=== PATIENT | female | born 1955 | race Two or more races ===

== ENCOUNTER 2020-04-11 10:21 | Outpatient (REF) | payer MEDICARE, MEDICAID, SELFPAY ==
[2020-04-11 11:19] LABS: MANUAL DIFF FLAG NO
[2020-04-11 11:28] LABS: Basophils Percent Auto 0.5 % (0-2); Eosinophils Absolute Auto 0.2 X10*3/uL (0.0-0.4); Eosinophils Percent Auto 2.6 % (0-4); Hemoglobin 13.4 g/dl (12.0-16.0); Imm Gran Abs Auto 0.01 X10*3/uL (0.00-0.03); Imm Gran Pct Auto 0.2 % (0.0-0.4); Lymphocytes Absolute Auto 1.6 X10*3/uL (1.2-4.9); Lymphocytes Percent Auto 25.9 % (20-40); Mean Corpuscular HGB Conc 31.9 g/dl (31.0-35.0); Mean Corpuscular Hemoglobin 28.2 pg (27.0-33.0); Mean Corpuscular Volume 88.4 fL (80-98); Mean Platelet Volume 12.5 fL (9.4-12.3); Monocytes Absolute Auto 0.6 X10*3/uL (0.1-1.2); Monocytes Percent Auto 9.1 % (2-11); Neutrophils Absolute Auto 3.7 X10*3/uL (2.0-8.3); Neutrophils Percent Auto 61.7 % (45-73); Platelet Count 228 X10*3/uL (160-400); Red Blood Count 4.75 X10*6/uL (4.20-5.50); Red Cell Distribution Width 13.6 % (11.0-16.0); White Blood Count 6.1 X10*3/uL (4.8-10.8)
[2020-04-11 12:23] LABS: Alanine Aminotransferase 13 U/L (0-31); Albumin Level 4.3 g/dL (3.5-5.0); Alkaline Phosphatase 78 U/L (39-117); Anion Gap 12 (12-20); Aspartate Amino Transferase 18 U/L (5-31); Bilirubin Total 0.4 mg/dL (0.0-1.0); Blood Urea Nitrogen 14 mg/dL (9-16); Calcium 9.3 mg/dL (8.4-10.2); Carbon Dioxide 27 mmol/L (22-29); Chloride 107 mmol/L (96-108); Cholesterol 169 mg/dL; Estimated Glomerular Filt Rate > 60; Glucose Fasting 90 mg/dL (60-99); HDL Cholesterol 55 mg/dL; LDL Cholesterol Calculated 97 mg/dl; Potassium 5.1 mmol/l (3.3-5.1); Sodium 141 mmol/L (135-145); Total Protein 7.2 g/dL (6.5-8.0); Triglycerides 87 mg/dL
== END 2020-04-11 10:22 | disposition home or self-care (01) ==
LOC: HO.LAB 10:21
PROVIDERS: PCP Physician Assistant; Visit Provider Physician Assistant
DX: E87.5 Hyperkalemia (principal); I10 Essential (primary) hypertension
CPT/HCPCS: 36415; 80053; 80061; 85025

== ENCOUNTER 2020-11-27 10:06 | Outpatient (REF) | payer MEDICARE, MEDICAID, SELFPAY ==
[2020-11-27 11:17] LABS: Alanine Aminotransferase 12 U/L (0-31); Albumin Level 4.6 g/dL (3.5-5.0); Alkaline Phosphatase 77 U/L (39-117); Anion Gap 14 (12-20); Aspartate Amino Transferase 20 U/L (5-31); Bilirubin Total 0.3 mg/dL (0.0-1.0); Blood Urea Nitrogen 19 mg/dL (9-16); Calcium 10.4 mg/dL (8.4-10.2); Carbon Dioxide 28 mmol/L (22-29); Chloride 104 mmol/L (96-108); Estimated Glomerular Filt Rate > 60; Glucose Fasting 106 mg/dL (60-99); Potassium 4.6 mmol/L (3.3-5.1); Sodium 141 mmol/L (135-145); Total Protein 7.8 g/dL (6.5-8.0)
[2020-11-27 11:37] LABS: TSH reflex Free T4 0.46 uIU/mL (0.32-4.0)
== END 2020-11-27 10:07 | disposition home or self-care (01) ==
LOC: HO.LAB 10:06
PROVIDERS: PCP Physician Assistant; Visit Provider Nurse Practitioner Family
DX: I10 Essential (primary) hypertension (principal)
CPT/HCPCS: 36415; 80053; 84443

== ENCOUNTER 2020-12-28 09:23 | Outpatient (REF) | payer MEDICARE, MEDICAID, SELFPAY ==
--- NOTE | ~2020-12-28 | MM_ITS ---
EXAMINATION: BONE DENSITOMETRY CLINICAL INDICATION: Asymptomatic menopausal state. COMPARISON: This is the patient's baseline examination. TECHNIQUE: Using a Array Storm DXA System (software version: 13.1) manufactured by [employer], dual-energy x-ray absorptiometry was performed of the spine and left hip. The images are of good technical quality. Summary results are attached. FINDINGS: AP SPINE L1-L3 (excluding L4): The data of L1-L4 has been changed to exclude the L4 vertebral body, because degenerative changes at this level may cause overestimation of lumbar spine density. BMD 1.019 g/cm2, Z-score 0.0, T-score -1.3, osteopenia. LEFT FEMUR, NECK: BMD 0.704 g/cm2, Z-score -1.2, T-score -2.4, osteopenia. LEFT FEMUR, TOTAL: BMD 0.735 g/cm2, Z-score -1.2, T-score -2.2, osteopenia. IDENTIFIED RISK FACTORS: Rheumatoid arthritis, recurrent falls, low calcium intake, history of fracture (adult), menopause, thiazide. HISTORY OF FRACTURE: Elbow. MEDICATIONS: Calcium supplements or multivitamin, vitamin D. MM/XR DEXA axial skeleton IMPRESSION: 1. DIAGNOSIS: Osteopenia based on the lowest T-score value of -2.4 in the femoral neck applying World Health Organization criteria. 2. 10-YEAR FRACTURE RISK PREDICTION, FRAX: Major osteoporotic fracture (clinical spine, forearm, hip or shoulder) 14.9%. Hip fracture 3.2%. 3. Treatment Recommendations: NOF guidelines recommend consideration for treatment in postmenopausal women and men age 50 and older presenting with the following: -A hip or vertebral (clinical or morphometric) fracture. -T-score less than or equal to -2.5 at the femoral neck or spine after appropriate evaluation to exclude secondary causes. -Low bone mass at the hip or spine and a 10-year fracture probability by FRAX of greater than or equal to 3% for hip fracture or greater than or equal to 20% for major osteoporotic fracture based on the [place] adapted WHO algorithm. 4. Other Recommendations: All treatment decisions require clinical judgment and consideration of individual patient factors, including patient preferences, comorbidities, previous drug use, risk factors not captured in the FRAX model (e.g. frailty, falls, vitamin D deficiency, increased bone turnover, interval significant decline in bone density) and possible under or overestimation of fracture risk by FRAX. Additional medical evaluation for secondary cause of low bone mineral density may be appropriate. FUTURE SCAN RECOMMENDATION: People with diagnosed cases of osteoporosis or at high risk for fracture should have regular bone mineral density tests. For patients eligible for Medicare, routine testing is allowed once every 2 years. The testing frequency can be increased to one year for patients who have rapidly progressing disease, those who are receiving or discontinuing medical therapy to restore bone mass, or have additional risk factors.
== END 2020-12-28 09:24 | disposition home or self-care (01) ==
LOC: HO.MAMMO 09:23
PROVIDERS: PCP Nurse Practitioner Family; Visit Provider Nurse Practitioner Family
DX: Z13.820 Encounter for screening for osteoporosis (principal); M85.80 Other specified disorders of bone density and structure, unspecified site; Z78.0 Asymptomatic menopausal state; Z79.899 Other long term (current) drug therapy
CPT/HCPCS: 77080

== ENCOUNTER 2020-12-28 13:00 | Outpatient (RCR) | payer MEDICARE, MEDICAID, SELFPAY | END 2021-01-16 13:00 | disposition home or self-care (01) | LOC: HO.OT 13:00 | PROVIDERS: PCP Orthopaedic Surgery; Visit Provider Orthopaedic Surgery | DX: Z98.890 Other specified postprocedural states (principal) | CPT/HCPCS: 29105; 97035; 97110; 97140; 97166; 97530; 97760 ==

== ENCOUNTER 2021-04-02 15:18 | Outpatient (REF) | payer MEDICARE, MEDICAID, SELFPAY ==
--- NOTE | ~2021-04-02 | MM_ITS ---
EXAMINATION: MM SCREENING DIGITAL BREAST TOMOSYNTHESIS, BILATERAL CLINICAL INFORMATION: Screening. Asymptomatic. The lifetime risk of breast cancer based on the Tyrer-Cuzick Model is 4.6%. COMPARISON: Mammography: January 30, 2020 and studies dating back to October 26, 2015 TECHNIQUE: Digital breast tomosynthesis is performed in both the craniocaudal and mediolateral oblique views along with computer-aided detection (CAD). Synthesized 2D images are generated from the tomosynthesis. FINDINGS: There are scattered areas of fibroglandular density (ACR BI-RADS breast composition Category b). There are no significant masses, abnormal calcifications, or other abnormalities. MM/MM tomosynthesis screening BI IMPRESSION: There are no significant changes from prior study. ASSESSMENT: BI-RADS 1: Negative RECOMMENDATION: Routine annual mammography screening. This patient's information was entered into a reminder system with a target due date for their next mammogram.
== END 2021-04-02 15:19 | disposition home or self-care (01) ==
LOC: HO.MAMMO 15:18
PROVIDERS: Visit Provider Physician Assistant
DX: Z12.31 Encounter for screening mammogram for malignant neoplasm of breast (principal)
CPT/HCPCS: 77063; 77067

== ENCOUNTER 2021-04-08 11:18 | Outpatient (REF) | payer MEDICARE, MEDICAID, SELFPAY ==
[2021-04-08 12:25] LABS: Hematocrit 43.7 % (37.0-47.0); Hemoglobin 13.9 g/dl (12.0-16.0); Mean Corpuscular HGB Conc 31.8 g/dl (31.0-35.0); Mean Corpuscular Hemoglobin 27.8 pg (27.0-33.0); Mean Corpuscular Volume 87.4 fL (80.0-98.0); Mean Platelet Volume 12.5 fL (9.4-12.3); Platelet Count 220 X10*3/uL (160-400); Red Cell Distribution Width 14.6 % (11.0-16.0); White Blood Count 8.8 X10*3/uL (4.8-10.8)
[2021-04-08 12:40] LABS: Estimated Average Glucose 111 mg/dL; Hemoglobin A1c % 5.5 %
[2021-04-08 12:48] LABS: Creatinine Urine 205.61 mg/dL; Microalbum/Creatinine Ratio Ur 7.7 ug/mg cr
[2021-04-08 12:55] LABS: Alanine Aminotransferase 11 U/L (0-31); Albumin Level 4.4 g/dL (3.5-5.0); Alkaline Phosphatase 74 U/L (39-117); Anion Gap 14 (12-20); Aspartate Amino Transferase 17 U/L (5-31); Bilirubin Total 0.5 mg/dL (0.0-1.0); Blood Urea Nitrogen 14 mg/dL (9-16); C Reactive Protein 0.44 mg/dL (< or = 0.50); Calcium 10.2 mg/dL (8.4-10.2); Carbon Dioxide 28 mmol/L (22-29); Chloride 105 mmol/L (96-108); Cholesterol 187 mg/dL; Estimated Glomerular Filt Rate > 60; Glucose Fasting 106 mg/dL (60-99); HDL Cholesterol 59 mg/dL; LDL Cholesterol Calculated 107 mg/dl; Potassium 4.7 mmol/L (3.3-5.1); Sodium 142 mmol/L (135-145); Total Protein 7.7 g/dL (6.5-8.0); Triglycerides 107 mg/dL
[2021-04-08 13:10] LABS: TSH reflex Free T4 0.56 uIU/mL (0.32-4.0)
[2021-04-08 13:13] LABS: Rheumatoid Factor < 15.0 IU/mL (<15.0)
[2021-04-09 23:02] LABS: Anti Nuclear Antibody Screen POSITIVE (NEGATIVE); Anti Nuclear Antibody Titer 1:40 titer
[2021-04-10 21:06] LABS: Cyclic Citrullinated Peptide <16 UNITS
== END 2021-04-08 11:19 | disposition home or self-care (01) ==
LOC: HO.LAB 11:18
PROVIDERS: PCP Physician Assistant; Visit Provider Physician Assistant
DX: I10 Essential (primary) hypertension (principal); M25.50 Pain in unspecified joint
CPT/HCPCS: 36415; 80053; 80061; 82043; 83036; 84443; 85027; 86038; 86039; 86140; 86200; 86431

== ENCOUNTER 2021-08-20 10:33 | Outpatient (REF) | payer OTHER, SELFPAY ==
--- NOTE | ~2021-08-20 | XR_ITS ---
EXAMINATION: BILATERAL HAND X-RAY CLINICAL INFORMATION: Pain COMPARISON: None TECHNIQUE: 3 views of each hand FINDINGS: Left: Bone alignment is normal. No fracture or dislocation is seen. There is mild arthritis at the DIP joint of the second finger and PIP joint of the third finger. Joint spaces are otherwise normal. The small cysts in the lunate. Carpal bones are otherwise normal. Soft tissues are normal. Right: Bone alignment is normal. No fracture or dislocation is seen. There is mild arthritis at the first IP and HALF-WAY joints and IP joint of the second finger. Carpal bones are normal. Soft tissues are normal. XR/XR hand RT 2V IMPRESSION: Mild bilateral arthritis.
--- NOTE | ~2021-08-20 | XR_ITS ---
EXAMINATION: BILATERAL HAND X-RAY CLINICAL INFORMATION: Pain COMPARISON: None TECHNIQUE: 3 views of each hand FINDINGS: Left: Bone alignment is normal. No fracture or dislocation is seen. There is mild arthritis at the DIP joint of the second finger and PIP joint of the third finger. Joint spaces are otherwise normal. The small cysts in the lunate. Carpal bones are otherwise normal. Soft tissues are normal. Right: Bone alignment is normal. No fracture or dislocation is seen. There is mild arthritis at the first IP and CORRECTION joints and IP joint of the second finger. Carpal bones are normal. Soft tissues are normal. XR/XR hand LT 2V IMPRESSION: Mild bilateral arthritis.
[2021-08-20 12:03] LABS: Hemoglobin 13.5 g/dl (12.0-16.0); Mean Corpuscular HGB Conc 31.4 g/dl (31.0-35.0); Mean Corpuscular Hemoglobin 27.7 pg (27.0-33.0); Mean Corpuscular Volume 88.1 fL (80.0-98.0); Mean Platelet Volume 11.9 fL (9.4-12.3); Platelet Count 292 X10*3/uL (160-400); Red Blood Count 4.88 X10*6/uL (4.20-5.50); White Blood Count 8.3 X10*3/uL (4.8-10.8)
[2021-08-20 12:40] LABS: Alanine Aminotransferase 17 U/L (0-31); Albumin Level 4.4 g/dL (3.5-5.0); Alkaline Phosphatase 79 U/L (39-117); Anion Gap 16 (12-20); Aspartate Amino Transferase 19 U/L (5-31); Bilirubin Total 0.6 mg/dL (0.0-1.0); Blood Urea Nitrogen 16 mg/dL (9-16); Carbon Dioxide 26 mmol/L (22-29); Chloride 102 mmol/L (96-108); Cholesterol 173 mg/dL; Estimated Glomerular Filt Rate > 60; Glucose Fasting 102 mg/dL (60-99); HDL Cholesterol 52 mg/dL; LDL Cholesterol Calculated 102 mg/dl; Potassium 3.9 mmol/L (3.3-5.1); Sodium 140 mmol/L (135-145); Total Protein 7.7 g/dL (6.5-8.0); Triglycerides 98 mg/dL
[2021-08-20 12:40] LABS: Microalbum/Creatinine Ratio Ur 8.9 ug/mg cr
[2021-08-20 12:59] LABS: TSH reflex Free T4 0.98 uIU/mL (0.32-4.0)
[2021-08-20 13:27] LABS: Rheumatoid Factor < 15.0 IU/mL (<15.0)
== END 2021-08-20 10:34 | disposition home or self-care (01) ==
LOC: HO.LAB 10:33
PROVIDERS: PCP Physician Assistant; Visit Provider Physician Assistant
DX: M79.641 Pain in right hand (principal); M79.642 Pain in left hand; I10 Essential (primary) hypertension; M25.50 Pain in unspecified joint; R76.8 Other specified abnormal immunological findings in serum
CPT/HCPCS: 36415; 73120; 80053; 80061; 82043; 84443; 85027; 86431

== ENCOUNTER 2021-10-22 09:09 | Outpatient (REF) | payer OTHER, SELFPAY ==
--- NOTE | ~2021-10-22 | XR_ITS ---
EXAMINATION: XR hand RT min 3V, XR hand LT min 3V CLINICAL INFORMATION: Pain COMPARISON: Hand radiographs 08/20/2021 TECHNIQUE: 3 views of the bilateral hands FINDINGS: RIGHT HAND: No fracture or dislocation. There is loss of first metacarpophalangeal joint space and loss of second metacarpophalangeal joint space, as well as volar subluxation of the second proximal phalanx with respect to the metatarsal head not previously appreciated. Marginal cortical erosion along the medial aspect of the head of the second middle phalanx, with radial subluxation of the second distal phalanx with respect to the middle phalanx. Soft tissues are unremarkable. LEFT HAND: No fracture or dislocation. Mild degenerative changes of the second and first distal interphalangeal joints. No cortical erosion. Soft tissues are unremarkable. XR/XR hand LT min 3V IMPRESSION: * In the right hand there is loss of first metacarpophalangeal joint space and loss of second metacarpophalangeal joint space with volar subluxation of the second proximal phalanx with respect to the metatarsal head which can be seen in the setting of rheumatoid arthritis. There is also a marginal cortical erosion along the medial aspect of the head of the right second middle phalanx, with radial subluxation of the second distal phalanx with respect to the middle phalanx, which would be in a distribution atypical for rheumatoid arthritis and other erosive arthropathies could be also considered such as psoriatic arthritis or erosive osteoarthritis. * Mild degenerative changes of the left second and first distal interphalangeal joints similar to prior
--- NOTE | ~2021-10-22 | XR_ITS ---
EXAMINATION: XR hand RT min 3V, XR hand LT min 3V CLINICAL INFORMATION: Pain COMPARISON: Hand radiographs 08/20/2021 TECHNIQUE: 3 views of the bilateral hands FINDINGS: RIGHT HAND: No fracture or dislocation. There is loss of first metacarpophalangeal joint space and loss of second metacarpophalangeal joint space, as well as volar subluxation of the second proximal phalanx with respect to the metatarsal head not previously appreciated. Marginal cortical erosion along the medial aspect of the head of the second middle phalanx, with radial subluxation of the second distal phalanx with respect to the middle phalanx. Soft tissues are unremarkable. LEFT HAND: No fracture or dislocation. Mild degenerative changes of the second and first distal interphalangeal joints. No cortical erosion. Soft tissues are unremarkable. XR/XR hand RT min 3V IMPRESSION: * In the right hand there is loss of first metacarpophalangeal joint space and loss of second metacarpophalangeal joint space with volar subluxation of the second proximal phalanx with respect to the metatarsal head which can be seen in the setting of rheumatoid arthritis. There is also a marginal cortical erosion along the medial aspect of the head of the right second middle phalanx, with radial subluxation of the second distal phalanx with respect to the middle phalanx, which would be in a distribution atypical for rheumatoid arthritis and other erosive arthropathies could be also considered such as psoriatic arthritis or erosive osteoarthritis. * Mild degenerative changes of the left second and first distal interphalangeal joints similar to prior
[2021-10-22 11:24] LABS: C Reactive Protein 0.62 mg/dL (< or = 0.50)
[2021-10-22 11:41] LABS: Erythrocyte Sedimentation Rate 14 MM/HR (0-20)
[2021-10-22 12:27] LABS: Creatinine Urine 182.91 mg/dL; Protein/Creatinine Ratio, Ur 0.07 (<0.2); Total Protein Urine Random 12 mg/dL (<12)
[2021-10-23 21:01] LABS: Anti DNA DS Antibody <1 IU/mL; SM/Ribonucleoprotein Ab <1.0 NEG AI (<1.0 NEG); Smith Protein <1.0 NEG AI (<1.0 NEG)
== END 2021-10-22 09:10 | disposition home or self-care (01) ==
LOC: HO.LAB 09:09
PROVIDERS: PCP Physician Assistant; Visit Provider Internal Medicine Rheumatology
DX: M79.641 Pain in right hand (principal); M79.642 Pain in left hand; R76.8 Other specified abnormal immunological findings in serum; M25.50 Pain in unspecified joint
CPT/HCPCS: 36415; 73130; 84156; 85652; 86140; 86225; 86235; 99202

== ENCOUNTER 2022-04-04 11:55 | Outpatient (REF) | payer OTHER, SELFPAY ==
--- NOTE | ~2022-04-04 | MM_ITS ---
EXAMINATION: MM SCREENING DIGITAL BREAST TOMOSYNTHESIS, BILATERAL CLINICAL INFORMATION: Screening. Asymptomatic. COMPARISON: Mammography: 04/02/2021, 01/30/2020, 01/24/2019 TECHNIQUE: Digital breast tomosynthesis is performed in both the craniocaudal and mediolateral oblique views along with computer-aided detection (CAD). Synthesized 2D images are generated from the tomosynthesis. Additional left CC view is provided. FINDINGS: There are scattered areas of fibroglandular density (ACR BI-RADS breast composition Category b). Parenchymal pattern is similar to prior studies. Scattered minor asymmetries are stable. There is no developing density or interval architectural abnormality. No interval abnormal calcifications. The axilla and skin contours are unremarkable. No significant changes. MM/MM tomosynthesis screening BI IMPRESSION: No mammographic evidence of malignancy. ASSESSMENT: BI-RADS 2: Benign RECOMMENDATION: Routine annual mammography screening. This patient's information was entered into a reminder system with a target due date for their next mammogram.
== END 2022-04-04 11:56 | disposition home or self-care (01) ==
LOC: HO.MAMMO 11:55
PROVIDERS: PCP Physician Assistant; Visit Provider Physician Assistant
DX: Z12.31 Encounter for screening mammogram for malignant neoplasm of breast (principal)
CPT/HCPCS: 77063; 77067

== ENCOUNTER 2022-09-04 09:53 | Outpatient (REF) | payer OTHER, SELFPAY ==
--- NOTE | ~2022-09-04 | XR_ITS ---
EXAMINATION: XR LUMBOSACRAL SPINE CLINICAL INFORMATION: M54.50 - Low back pain, unspecified COMPARISON: CT abdomen and pelvis 09/04/2018 TECHNIQUE: Three views of the lumbosacral spine. FINDINGS: There is transitional vertebrae at S1 with partial lumbarization. The SI joints and remainder of the sacrum are unremarkable. There is a mild levocurvature lumbar spine with normal lumbar lordosis. The vertebral bodies are normal in height and there is no vertebral compression or destructive process. There are degenerative disc changes greatest at L5-S1 with disc narrowing and mild endplate sclerosis and vertebral spurring. There are also degenerative disc changes at L3-L4 and L4-L5. Multilevel facet degeneration is present, greatest L4-S1. There is a grade 0-1 spondylolisthesis at both L3-L4 and lesser at L4-L5.. XR/XR lumbar spine 2-3V IMPRESSION: -Transitional vertebrae S1 with partial lumbarization. -Multilevel degenerative disc and degenerative facet changes. -Grade 0-1 spondylolisthesis L3-L4 and lesser at L4-L5.
[2022-09-04 11:05] LABS: Hematocrit 41.5 % (37.0-47.0); Hemoglobin 13.3 g/dl (12.0-16.0); Mean Corpuscular Hemoglobin 28.3 pg (27.0-33.0); Mean Corpuscular Volume 88.3 fL (80.0-98.0); Mean Platelet Volume 12.3 fL (9.4-12.3); Platelet Count 238 X10*3/uL (160-400); Red Cell Distribution Width 13.7 % (11.0-16.0); White Blood Count 7.1 X10*3/uL (4.8-10.8)
[2022-09-04 11:39] LABS: Creatinine Urine 101.19 mg/dL; Microalbum/Creatinine Ratio Ur 7.9 ug/mg cr
[2022-09-04 11:39] LABS: Alanine Aminotransferase 10 U/L (0-31); Albumin Level 4.1 g/dL (3.5-5.0); Alkaline Phosphatase 75 U/L (39-117); Anion Gap 12 (12-20); Aspartate Amino Transferase 16 U/L (5-31); Bilirubin Total 0.9 mg/dL (0.0-1.0); Blood Urea Nitrogen 15 mg/dL (9-16); Calcium 9.8 mg/dL (8.4-10.2); Carbon Dioxide 29 mmol/L (22-29); Chloride 108 mmol/L (96-108); Cholesterol 159 mg/dL; Estimated Glomerular Filt Rate > 60; Glucose Fasting 101 mg/dL (60-99); HDL Cholesterol 52 mg/dL; LDL Cholesterol Calculated 81 mg/dl; Potassium 4.9 mmol/L (3.3-5.1); Sodium 144 mmol/L (135-145); Total Protein 6.9 g/dL (6.5-8.0); Triglycerides 133 mg/dL
[2022-09-04 11:59] LABS: TSH reflex Free T4 0.61 uIU/mL (0.32-4.0)
== END 2022-09-04 09:54 | disposition home or self-care (01) ==
LOC: HO.LAB 09:53
PROVIDERS: PCP Physician Assistant; Visit Provider Physician Assistant
DX: I10 Essential (primary) hypertension (principal); M54.50 Low back pain, unspecified
CPT/HCPCS: 36415; 72100; 80053; 80061; 82043; 84443; 85027

== ENCOUNTER 2022-10-30 11:00 | Outpatient (RCR) | payer OTHER, SELFPAY ==
--- NOTE | 2022-10-16 13:57 | MHC.PT.EP ---
[facility] [place] Office [place] Office [place] Office [address] Jose Duenas [address] [phone] F: [phone] F: [phone] F: [phone] F: [phone] Physical Therapy Plan of Care Date of Evaluation: Date of Surgery: N/A Diagnosis: thoracolumbar and lumbosacral intervertebral disc disease (RC) grade 0-1 spondylolisthesis of L3-4 and L4-5 per xray Assessment: pt is a 67 y/o female presenting to physical therapy w/ referring diagnosis of thoracolumbar and lumbosacral intervertebral disc disorder. Impairments include pain, decreased range of motion, decreased strength, impaired functional mobility, impaired postural awareness, and altered ambulation mechanics. pt is a good candidate for skilled PT due to age, potential remediation of impairments, typical disease/condition progression and prognosis, comorbidities, and motivation. pt would benefit from skilled PT intervention to provide a tailored strengthening and stretching exercise program, functional training, gait training, postural re-training, neuromuscular re-education, modalities as needed for pain, equipment safety demonstration. Frequency and Duration: The patient will be seen 1x/wk for 5 wks Short Term Goals: pt will be I w/ HEP to promote self-management of condition. pt will demo sit<>stand posture w/ neutral foot and hip alignment to promote ease in transfers Alf Goals: pt will report a statistically significant improvement in self-reported outcome measure, Blaise, to promote return to PLOF. pt will demo proper lifting mechanics w/ 15# to promote neutral spine w/ lifting. Treatment Plan: Modalities to reduce pain, spasms and effusion. Manual therapy to restore motion and function. Therapeutic exercise to improve strength and flexibility. Neuromuscular re-education for posture and balance. Therapeutic activities to return to functional activities of daily living. Electronically signed by: Bessie Fu PT, DPT Please sign and return to therapist. Thank you for your referral.
--- NOTE | 2022-12-04 10:40 | MHC.PT.DC ---
[facility] [place] Office [place] Office [place] Office [address] Duenas 140 [facility] [phone] F: [phone] F: [phone] F: [phone] F: [phone] Physical Therapy Discharge Report Diagnosis: thoracolumbar and lumbosacral intervertebral disc disease (RC) grade 0-1 spondylolisthesis of L3-4 and L4-5 per xray Date of Surgery: N/A Date of Evaluation: 10/16/22 Date of Discharge: 12/04/22 Treatments to Date: 3 Cancellations to Date: 2 No Shows to Date: 0 Discharge Status: Achieved Goals Improved Function Discharge Summary: The patient was reporting she would like to be discharged as she had met her goals and was feeling better. Electronically signed by: Bessie Hahn PT, DPT Please sign and return to therapist. Thank you for your referral.
== END 2022-12-04 10:40 | disposition home or self-care (01) ==
LOC: HO.PT 11:00
PROVIDERS: PCP Physician Assistant; Visit Provider Physician Assistant
DX: M51.9 Unspecified thoracic, thoracolumbar and lumbosacral intervertebral disc disorder (principal); M54.50 Low back pain, unspecified
CPT/HCPCS: 97110; 97162

== ENCOUNTER 2023-02-16 13:45 | Outpatient (AMB) | payer OTHER, SELFPAY ==
[2023-02-16 14:07] VITALS: BP 124/86; PULSE 65; RESP 17; O2SAT 98; BMI 28.3
--- NOTE | 2023-02-16 14:07 | MHC.PC.OV ---
Vital Signs 02/16/23 14:07 Height 5 ft 2.5 in Weight 157 lb 2 oz BMI 28.3 BP 124/86 Blood Pressure Location Lt brachial Position Sitting Respiration 17 Pulse 65 Pulse Source Pulse Oximeter Pulse Oximetry (%) 98 Oxygen Delivery Method Room Air Intake Visit Reasons: 6M Follow up Intake Note: Pt is here for 6 months routine F/U. Pt requesting MARKETING AND OUTREACH COORDINATOR referral. Shingle Catcher Required: No Accompanied by: Self / Same As Patient Allergies No Known Allergies Allergy (Verified 02/16/23 14:27) Medication List - Last Reconciled 02/16/23 by Fer Rai PA-C amlodipine 5 mg PO DAILY ascorbate calcium (vitamin C) 500 mg PO DAILY calcium carbonate 600 mg PO DAILY cane As directed cholecalciferol (vitamin D3) 25 mcg PO DAILY hydrochlorothiazide 12.5 mg PO DAILY 90 days meloxicam 15 mg PO DAILY PRN 30 days sumatriptan succinate take 1 tab at onset of headache; if no relief may repeat 1 tab after at least 2 hrs; max = 4 tabs/24 hr PO Tobacco use date assessed: 09/01/22 Fall risk assessment: No Falls in past year Last assessed Fall Risk: 02/16/23 Dental Screening Dental Screen Date: 02/16/23 Did you have a dental visit in the last 12 months?: Yes Did you have a dental problem in the last 6 months where you did not have access to dental care?: No Was dental information given to patient?: Patient has dentist HPI 6M Follow up HPI Details Sarah is a 67 year-old female here today for a f/u visit. . Patient has a past medical history significant for anxiety, migraines, nephrolithiasis, hypertension. Concerns--> would like to see a MARKETING AND OUTREACH COORDINATOR , reports recently her sister recently diagnsoed with ovarian cancer. She reports she has not seen binder operator or 5 years. She is also concerned her renal cysts that were incidentally found during episode of nephrolithiasis. She would like her renal cysts checked again. Otherwise denies any urinary symptoms or flank pain. ? .. ? HTN: REport at home her BP is normal 120s to 130 systolic, today in office acceptable. Patient denies any chest pain, shortness of breath, sustain headaches. .. Osteopenia: Most recent Bone density showing oseopenia--> has been using calcium and vitamin-D supplements.?? ? PFSH Medical History Conjunctivitis Fracture, radius and ulna, proximal History of fracture of humerus History of fracture of wrist Post-menopausal Screening for diabetes mellitus Surgical History History of colonoscopy History of surgery on arm History of foot surgery H/O bilateral breast reduction surgery Family History Father Diabetes Mother Diabetes Hyperlipidemia Sister Gynecologic cancer Sister Breast cancer Son Multiple sclerosis Daughter Obesity Social History Housing: House Alcohol intake: never Patient Tobacco Use Status: Never used Tobacco e-Cigarette/Vaping Use: Never Used Second Hand Smoke Exposure: No service: No Current occupational status: disabled Cognitive needs: Yes (cane) Hearing needs: No Vision needs: Yes (glasses) Questionnaire Thrive Questionnaire Date Thrive assessed: 09/01/22 MARII-7 AMB Questionnaire MARII-7 Date MARII - 7 assessed: 09/01/22 Source: Developed by Drs. vEerette Wills, Linda Foster, Jair Donovan and colleagues, with an educational sony from [employer]. Review of Systems Const Denies headache(s) Eyes Denies loss of vision ENT Denies vertigo, Denies dizziness, Denies headache(s) and Denies sore throat Card Denies chest pain, Denies leg edema and Denies lightheadedness Resp Denies cough, Denies hemoptysis and Denies wheezing GI Denies abdominal pain, Denies melena, Denies constipation, Denies diarrhea and Denies vomiting Denies urinary frequency, Denies dysuria and Denies urinary urgency Musc Denies arthralgias, Denies joint swelling, Denies numbness and Denies tingling Neuro Denies Abnormal speech present, Denies behavioral changes, Denies vertigo, Denies dizziness, Denies headache(s), Denies loss of vision, Denies memory loss, Denies numbness and Denies tingling Psych Denies anxiety, Denies behavioral changes, Denies depression, Denies memory loss and Denies panic attacks Dom/Lymph Denies easy bleeding and Denies easy bruising Aller/Immun Denies wheezing Physical exam (Primary Care) Vital Signs: Last Vital Signs Pulse 65 02/16/23 14:07 Resp 17 02/16/23 14:07 BP 124/86 02/16/23 14:07 Pulse Ox 98 02/16/23 14:07 Oxygen Delivery Method Room Air 02/16/23 14:07 BMI result Body Mass Index 28.3 Tobacco/Smoking Status: Tobacco use Status Tobacco use date assessed 09/01/22 02/16/23 14:09 Patient Tobacco Use Status Never used Tobacco 02/16/23 14:09 e-Cigarette/Vaping Use Never Used 02/16/23 14:09 Thrive Assessment: Date of Thrive Assessment Date Thrive assessed 09/01/22 02/16/23 14:09 Const General: healthy appearing, no acute distress, alert and awake Nutritional Appearance: well nourished Orientation/consciousness: oriented to person, oriented to place and oriented to time HENMT Ears: TM's normal bilaterally General nose exam: Normal nasal mucous membranes and turbinates present Eyes Conjunctivae: conjunctivae normal Sclerae: sclerae normal Pupils: Equal, round and reactive pupils present Neck Neck: Yes no lymphadenopathy and Yes no JVD Thyroid: Thyroid normal Carotids: no bruits Resp Effort & Inspection: normal respiratory effort and not tachypneic Auscultation: no crackles, no rales, no rhonchi and no wheezes Cardio Rate: regular rate Rhythm: regular rhythm Heart sounds: no murmurs and normal S1 and S2 GI Palpation (GI): Soft to palpation, nontender, no hepatomegaly and no splenomegaly Auscultation: normal bowel sounds Skin General skin exam: no rashes or lesions noted and dry skin Neuro General: oriented to person, oriented to place and oriented to time Cranial nerves: Yes Equal, round and reactive pupils present Speech: No Abnormal speech present Gait exam (Neuro): Normal gait present Motor exam (neuro): no tremor noted Extrem Right upper extremity: full ROM Left upper extremity: full ROM Right lower extremity: full ROM; no edema Left lower extremity: full ROM; no edema Psych Mental Status: mental status grossly normal Speech and movement: Normal speech and movement present Affect: normal affect Attitude: cooperative Thought process: Normal thought process present Assessment and Plan Assessment & Plan (1) HTN (hypertension): Code(s): I10 - Essential (primary) hypertension Qualifiers: Hypertension type: essential hypertension Qualified Code(s): I10 - Essential (primary) hypertension Plan: Patient's blood pressure acceptable today in office. Will continue current dose of antihypertensive medication with goal blood pressure to be below 140/90 (2) Family history of ovarian cancer: Code(s): Z80.41 - Family history of malignant neoplasm of ovary Plan: Patient reports her sister recently diagnosed with ovarian cancer. She is wanting to see a binder operator again to get checked otherwise asymptomatic without any abdominal pain, pelvic pain or vaginal bleeding. Will check a CA -125 (3) Renal cyst: Code(s): N28.1 - Cyst of kidney, acquired Plan: Patient has a history of nephrolithiasis and during her treatment for nephrolithiasis was found to have bilateral kidney cysts. He she is interested in getting her kidney cysts checked to make sure they having grown. Otherwise denies any flank pain or urinary symptoms. Orders: Orders Microalbumin, Random (w Creat) 02/16/23 I10 - Essential (primary) hypertension CA-125 02/16/23 Z80.41 - Family history of malignant neoplasm of ovary Complete Blood Count no Diff 02/16/23 I10 - Essential (primary) hypertension Comprehensive Sacul. Panel Fast 02/16/23 I10 - Essential (primary) hypertension US renal BI 02/16/23 N28.1 - Cyst of kidney, acquired Referrals AUTOMATIC QUILLING MACHINE OPERATOR Referral Z80.41 - Family history of malignant neoplasm of ovary Medications: Refilled hydrochlorothiazide 12.5 mg PO DAILY 90 days 90 tabs 1RF I10 - Essential (primary) hypertension amlodipine 5 mg PO DAILY 90 tabs 1RF I10 - Essential (primary) hypertension Coding Level of Care Code Est Pt Level 4 (56984) Diagnoses Essential hypertension I10 Hypertension type: essential hypertension Family history of ovarian cancer Z80.41 Renal cyst N28.1
== END 2023-02-16 14:41 | disposition home or self-care (01) ==
PROVIDERS: PCP Physician Assistant; Visit Provider Physician Assistant
DX: I10 Essential (primary) hypertension (principal); Z80.41 Family history of malignant neoplasm of ovary; N28.1 Cyst of kidney, acquired
CPT/HCPCS: 99214

== ENCOUNTER 2023-02-26 09:18 | Outpatient (REF) | payer OTHER, SELFPAY ==
[2023-02-26 10:06] LABS: Hematocrit 41.7 % (37.0-47.0); Hemoglobin 13.1 g/dl (12.0-16.0); Mean Corpuscular HGB Conc 31.4 g/dl (31.0-35.0); Mean Corpuscular Hemoglobin 28.4 pg (27.0-33.0); Mean Corpuscular Volume 90.5 fL (80.0-98.0); Mean Platelet Volume 11.9 fL (9.4-12.3); Platelet Count 240 X10*3/uL (160-400); Red Blood Count 4.61 X10*6/uL (4.20-5.50); Red Cell Distribution Width 13.9 % (11.0-16.0); White Blood Count 7.6 X10*3/uL (4.8-10.8)
[2023-02-26 11:14] LABS: Creatinine Urine 92.65 mg/dL; Microalbumin Urine < 5.0 mg/L
[2023-02-26 11:17] LABS: Alanine Aminotransferase 9 U/L (0-31); Albumin Level 4.2 g/dL (3.5-5.0); Alkaline Phosphatase 69 U/L (39-117); Anion Gap 14 (12-20); Aspartate Amino Transferase 16 U/L (5-31); Bilirubin Total 0.8 mg/dL (0.0-1.0); Blood Urea Nitrogen 12 mg/dL (9-16); Calcium 9.8 mg/dL (8.4-10.2); Carbon Dioxide 26 mmol/L (22-29); Chloride 107 mmol/L (96-108); Estimated Glomerular Filt Rate > 60; Glucose Fasting 93 mg/dL (60-99); Potassium 4.4 mmol/L (3.3-5.1); Sodium 143 mmol/L (135-145); Total Protein 7.4 g/dL (6.5-8.0)
[2023-02-28 08:39] LABS: CA-125 6 U/mL (<35)
== END 2023-02-26 09:19 | disposition home or self-care (01) ==
LOC: HO.LAB 09:18
PROVIDERS: PCP Physician Assistant; Visit Provider Physician Assistant
DX: I10 Essential (primary) hypertension (principal); R10.2 Pelvic and perineal pain; Z80.41 Family history of malignant neoplasm of ovary
CPT/HCPCS: 36415; 80053; 82043; 82570; 85027; 86304

== ENCOUNTER 2023-03-10 11:47 | Outpatient (REF) | payer OTHER, SELFPAY ==
--- NOTE | ~2023-03-10 | US_ITS ---
EXAMINATION: US RETROPERITONEAL LIMITED (RENAL ONLY) CLINICAL INFORMATION: Cyst of kidney, acquired. History of distant nephrolithiasis bilaterally. COMPARISON: CT abdomen and pelvis 09/04/2018. TECHNIQUE: Real-time imaging of the kidneys. FINDINGS: RIGHT KIDNEY: 10.2 x 3.4 x 5.5 cm (SAG x AP x TRV). The kidney is normal in size, contour, and echogenicity. Renal cortical thickness is normal. No hydronephrosis. At the interpolar aspect, 7 mm and 5 mm nonobstructing calculi are seen, with twinkle artifact. At the interpolar aspect, 1.8 cm and 1.1 cm anechoic, benign, simple cysts are seen. At the interpolar aspect, a 1.3 cm anechoic benign, simple cyst is seen. These require no imaging follow-up. LEFT KIDNEY: 10.8 x 4.9 x 4.9 cm (SAG x AP x TRV). The kidney is normal in size, contour, and echogenicity. Renal cortical thickness is normal. No focal parenchymal lesions. No hydronephrosis. At the upper pole, 8 mm and 5 mm nonobstructing calculi are seen. At the interpolar aspect, a 5 mm nonobstructing calculus is seen. At the lower pole a 9 mm nonobstructing calculus is seen. These calculi show twinkle artifact. US/US renal BI IMPRESSION: There are nonobstructing bilateral renal calculi, as detailed. No hydronephrosis is seen.
== END 2023-03-10 11:48 | disposition home or self-care (01) ==
LOC: HO.US 11:47
PROVIDERS: PCP Physician Assistant; Visit Provider Physician Assistant
DX: N28.1 Cyst of kidney, acquired (principal)
CPT/HCPCS: 76775

== ENCOUNTER 2023-04-13 15:21 | Outpatient (REF) | payer OTHER, SELFPAY ==
--- NOTE | ~2023-04-13 | MM_ITS ---
EXAMINATION: MM SCREENING DIGITAL BREAST TOMOSYNTHESIS, BILATERAL CLINICAL INFORMATION: Screening. Asymptomatic. COMPARISON: Mammography: This study is compared with prior exams dating back to 2018. TECHNIQUE: Digital breast tomosynthesis is performed in both the craniocaudal and mediolateral oblique views along with computer-aided detection (CAD). Synthesized 2D images are generated from the tomosynthesis. FINDINGS: There are scattered areas of fibroglandular density (ACR BI-RADS breast composition Category b). There are no significant masses, abnormal calcifications, or other abnormalities. There are few, bilateral, benign calcifications in each breast. MM/MM tomosynthesis screening BI IMPRESSION: No mammographic evidence of malignancy. ASSESSMENT: BI-RADS BI-RADS 2 - Benign Findings RECOMMENDATION: Routine annual mammography screening. 1 year F/U This examination should not preclude the clinical evaluation of a suspicious palpable abnormality. This patient's information was entered into a reminder system with a target due date for their next mammogram.
== END 2023-04-13 15:22 | disposition home or self-care (01) ==
LOC: HO.MAMMO 15:21
PROVIDERS: PCP Physician Assistant; Visit Provider Physician Assistant
DX: Z12.31 Encounter for screening mammogram for malignant neoplasm of breast (principal)
CPT/HCPCS: 77063; 77067

== ENCOUNTER → 2023-04-13 15:45 | Outpatient (BNV) | payer OTHER, SELFPAY | PROVIDERS: PCP Physician Assistant; Visit Provider Radiology Diagnostic Radiology | DX: Z12.31 Encounter for screening mammogram for malignant neoplasm of breast (principal) | CPT/HCPCS: 77063; 77067 ==

== ENCOUNTER 2023-05-07 08:39 | Outpatient (AMB) | payer OTHER, SELFPAY ==
--- OUTSIDE RECORDS SUMMARY | 2023-05-07 08:41 | XMS_ITS | Continuity of Care Document ---
Author Name Unknown Organization [facility] ter Address [address] [place] [id number]- Care Team Providers Care Place Change Roof Bolter Name Role Phone Chaz TURCIOS, Asma Primary Care Physician [phone] Encounter [facility] [place] Date(s): 09/05/20 - 10/05/[address] [address]- Attending Physician: Not on Staff, Attending MD Admitting Physician: Not on Staff, Admitting MD Referring Physician: Not on Staff, Referring MD Allergies, Adverse Reactions, Alerts Substance Reaction Severity Status NKA Active Immunizations Not Given Vaccine Date Status Refusal Reason pneumococcal 13-valent vaccine 09/04/20 Not Given Patient Refuses Medications aspirin 81 mg oral delayed release tablet 81 mg, 1, tablet, By Mouth, Daily, # 30 tablet, Refills 0, Tot. Refills 0, Maintenance, 09/05/20 14:13:00 EDT, Route to Pharmacy Electronically, [facility], Partial fill upon patient request if the prescription is for a schedule II opioi... Start Date: 09/05/20 Status: Ordered Calcium Citrate 315 mg + Vitamin D 250IU Tablet 1 tablet = 315 mg, By Mouth, Every 6 hours, 0 Refills, Maintenance, 09/05/20 14:16:00 EDT, Tablet, Partial fill upon patient request if the prescription is for a schedule II opioid drug. Start Date: 09/05/20 Status: Ordered docusate sodium 100 mg oral capsule 100 mg, 1, capsule, By Mouth, 2 times a day, # 20 capsule, Refills 0, Tot. Refills 0, Maintenance, 09/05/20 14:16:00 EDT, Route to Pharmacy Electronically, [facility], Partial fill uponpatient request if the prescription is for a schedu... Start Date: 09/05/20 Stop Date: 09/15/20 Status: Ordered SUMAtriptan 50 mg oral tablet 1 tablet = 50 mg, By Mouth, Daily, PRN for migraine headache, may repeat dose after 2 hours up to amaximum of 2, # 9 tablet, 0 Refills, Maintenance, 09/03/20 4:12:00 EDT, Tablet, Partial fill upon patient request if the prescription is for a schedule... Start Date: 09/03/20 Status: Ordered
--- OUTSIDE RECORDS SUMMARY | 2023-05-07 08:41 | XMS_ITS | Continuity of Care Document ---
Author Name Unknown Organization [facility] Address [address] [place] [address]- Care Team Providers Care Software Test Specialist Name Role Phone Chaz TURCIOS, Asma Primary Care Physician Encounter 09/06/20 - 10/03/20 [facility] [address] [place] [address]- Discharge Disposition: GOALS MET Allergies, Adverse Reactions, Alerts Substance Reaction Severity Status NKA Active Immunizations Not Given Vaccine Date Status Refusal Reason pneumococcal 13-valent vaccine 09/04/20 Not Given Patient Refuses Medications aspirin 81 mg oral delayed release tablet 81 mg, 1, tablet, By Mouth, Daily, # 30 tablet, Refills 0, Tot. Refills 0, Maintenance, 09/05/20 14:13:00 EDT, Route to Pharmacy Electronically, [facility], Partial fill upon patient request [...] 09/05/20 14:16:00 EDT, Route to Pharmacy Electronically, [facility], Partial fill uponpatient request if [...]
[2023-05-07 08:50] VITALS: BP 122/70; BMI 27.0
--- NOTE | 2023-05-07 08:50 | A.OFFVIS_ITS ---
Intake Vital Signs 05/07/23 08:50 Height 5 ft 2.5 in Weight 150 lb BMI 27.0 BP 122/70 Intake Visit Reasons: ovarian cancer/PCP referral/DO NOT RS Stevedoring Supervisor Required: Yes Stevedoring Supervisor Language: Putty And Caulking Supervisor Name: Marian NARANJO Information Interpreted: non-clinical & clinical Charcoal Kiln Burner: Charcoal Kiln Burner Present (Marian NARANJO) Accompanied by: Self / Same As Patient Allergies No Known Allergies Allergy (Verified 05/07/23 08:55) HPI HPI Comments History of Present Illness Details The patient is presenting for annual exam and to discuss her family history of ovarian cancer with her sister with diet age of 32. The patient has no symptoms no abdominal/pelvic pain vaginal bleeding early satiety or abdominal distension. Last mammogram was BI-RADS 2 in 04/23 Last co testing was in 2017 was negative Last colonoscopy was 2 years ago, according to the patient the recommendation was to repeat in 10 years. Last DEXA scan was in 12/19 [facility] Medical History History of fracture of humerus History of fracture of wrist Post-menopausal Screening for diabetes mellitus Fracture, radius and ulna, proximal Conjunctivitis Surgical History History of colonoscopy History of surgery on arm History of foot surgery H/O bilateral breast reduction surgery Family History Father Diabetes Mother Diabetes Hyperlipidemia Sister Gynecologic cancer Sister Breast cancer Son Multiple sclerosis Daughter Obesity Social History Household Members: None Housing: House Alcohol intake: never Patient Tobacco Use Status: Never used Tobacco e-Cigarette/Vaping Use: Never Used Second Hand Smoke Exposure: No service: No Current occupational status: disabled Sexually active: No Sexual orientation: Straight/Heterosexual Gender identity: Female Cognitive needs: Yes (cane) Hearing needs: No Vision needs: Yes (glasses) Female Reproductive History Menstrual Age of menopause: 51 Total pregnancies: 3 Full term: 3 Number of Living Children: 3 Date of last pap smear: 01/20/18 Review of Systems Const All systems reviewed & are unremarkable except as noted in HPI and below Card Reports as per HPI Resp Reports as per HPI GI Reports as per HPI and Reports no additional complaints Reports as per HPI Physical Exam Vital Signs: Last Vital Signs BP 122/70 05/07/23 08:50 BMI result Body Mass Index 27.0 Const General: cooperative, healthy appearing and comfortable Chest Chest palpation & inspection: normal inspection of the chest and normal palpation of entire chest wall Breast/axilla inspection: normal inspection of the breasts and normal inspection of the axillae Breast/axilla palpation: normal palpation of the breasts, normal palpation of the axillae and no axillary lymphadenopathy Resp Effort & Inspection: normal respiratory effort Auscultation: clear to auscultation bilaterally Percussion: percussion normal Cardio Palpation: normal PMI Rate: regular rate Rhythm: regular rhythm Heart sounds: no murmurs and no rubs Peripheral pulses: Peripheral pulses 2+ throughout GI Inspection: Yes normal to inspection Palpation (GI): Soft to palpation, nontender, no guarding, not rigid and No hepatosplenomegaly present Percussion: Yes normal to percussion Auscultation: normal bowel sounds Rectal Exam - Female: deferred General: Yes bladder normal to palpation External Female Exam: No lesion Speculum Exam - Vagina: normal appearance of the vagina, normal palpation, normal vaginal discharge and not erythematous Speculum Exam - Cervix: normal appearance of the cervix and normal palpation Bimanual exam- vagina & uterus: normal bimanual exam, normal palpation, uterine size normal, bladder normal to palpation, consistency normal and normal palpation Bimanual Exam- Adnexa, other: normal adnexae, no masses and no tenderness Assessment & Plan Assessment & Plan (1) Family history of ovarian cancer: Code(s): Z80.41 - Family history of malignant neoplasm of ovary Plan: Discussed with the patient the following information regarding screening for ovarian ca: CA 125, the most widely studied tumor marker for ovarian cancer screening, is elevated in 50 to 90 percent of women with early ovarian cancer but also can be elevated in numerous other conditions. There is no evidence to support using Ca 125 as a screening in average-risk women Serial measurements of CA 125, using an algorithm that incorporates age and rate of change, may improve the positive predictive value of screening but not sufficiently to incorporate into clinical practice at this time. Transvaginal ultrasonography when used as a sole screening intervention has not been effective in identifying early-stage cancer. There is no evidence to suggest screening average-risk women for ovarian cancer Family history is essential to identify patients with potential heredita ry/familial cancer syndrome. Example BRCA1 , BRCA2, Mckinley syndrome or others -High-risk family history with positive genetic testing will benefit from risk reduction bilateral salpingo-oophorectomy to reduce the risk. -Lower risk family history, patient's with remote family member with ovarian cancer without evidence of hereditary pattern, ovarian cancer risk is increased to a lesser extent than family cancer syndrome. There is no evidence that screening is effective , therefore ovarian cancer screening is generally not advised, because of the limited evidence of benefits and the potential for harm from the false-positive results. -Average risk patient's, asymptomatic woman at average risk without a genetic predisposition or family history of ovarian cancer, the recommendation is against screening for ovarian cancer since there is no evidence that the benefits of screening for ovarian cancer outweigh the harms related to the adverse effects of false-positive results. Will refer for cancer genetic testing if positive discuss risk reduction med salpingo-oophorectomy. All questions answered , the patient verbalized understanding. (2) Well woman exam: Code(s): Z01.419 - Encounter for gynecological examination (general) (routine) without abnormal findings Plan: Co testing done since patient is not adequately screened last 10 years Counseled the patient about the recommended dietary allowance of 1200 mg of Calcium & 800 IU of vitamin D. Instructions given the patient to schedule her next screening mammogram in 04/24 Will order DEXA scan . The patient was instructed to perform monthly self-breast exams and to schedule a 2 week DEXA scan follow-up appointment and an annual exam in a year; All questions answered and the patient verbalized understanding. Orders: Orders XR DEXA axial skeleton Today N95.1 - Menopausal and female climacteric states Referrals Genetics Referral Z80.41 - Family history of malignant neoplasm of ovary Coding Level of Care Code New Pt Prev Care >65yr (70412) Diagnoses Family history of ovarian cancer Z80.41 Well woman exam Z01.419
== END 2023-05-07 09:54 | disposition home or self-care (01) ==
LOC: HO.HWS 08:39
PROVIDERS: PCP Physician Assistant; Visit Provider Obstetrics & Gynecology
DX: Z01.419 Encounter for gynecological examination (general) (routine) without abnormal findings (principal); Z80.41 Family history of malignant neoplasm of ovary
CPT/HCPCS: 99387

== ENCOUNTER 2023-05-07 08:39 | Outpatient (REF) | payer OTHER, SELFPAY ==
[2023-05-11 22:39] LABS: HPV mRNA E6/E7 rflx Not Detected (Not Detected)
== END 2023-05-07 08:40 | disposition home or self-care (01) ==
LOC: HO.LNP 08:39
PROVIDERS: PCP Physician Assistant; Visit Provider Obstetrics & Gynecology
DX: Z01.419 Encounter for gynecological examination (general) (routine) without abnormal findings (principal); N95.1 Menopausal and female climacteric states; Z80.41 Family history of malignant neoplasm of ovary
CPT/HCPCS: 87624; 88142

== ENCOUNTER 2023-05-18 09:33 | Outpatient (REF) | payer OTHER, SELFPAY ==
[2023-05-18 09:43] LABS: MANUAL DIFF FLAG NO
[2023-05-18 10:05] LABS: Basophils Percent Auto 0.5 % (0-2); Eosinophils Absolute Auto 0.3 X10*3/uL (0.0-0.4); Eosinophils Percent Auto 3.7 % (0-4); Hematocrit 42.3 % (37.0-47.0); Hemoglobin 13.3 g/dl (12.0-16.0); Imm Gran Abs Auto 0.02 X10*3/uL (0.00-0.03); Imm Gran Pct Auto 0.3 % (0.0-0.4); Lymphocytes Absolute Auto 2.2 X10*3/uL (1.2-4.9); Lymphocytes Percent Auto 29.5 % (20-40); Mean Corpuscular HGB Conc 31.4 g/dl (31.0-35.0); Mean Corpuscular Hemoglobin 27.7 pg (27.0-33.0); Mean Corpuscular Volume 87.9 fL (80.0-98.0); Mean Platelet Volume 11.7 fL (9.4-12.3); Monocytes Absolute Auto 0.6 X10*3/uL (0.1-1.2); Monocytes Percent Auto 8.5 % (2-11); Neutrophils Absolute Auto 4.3 x10*3/uL (2.0-8.3); Neutrophils Percent Auto 57.5 % (45-73); Platelet Count 225 X10*3/uL (160-400); Red Blood Count 4.81 X10*6/uL (4.20-5.50); Red Cell Distribution Width 13.6 % (11.0-16.0); White Blood Count 7.6 X10*3/uL (4.8-10.8)
[2023-05-18 10:41] LABS: Alanine Aminotransferase 10 U/L (0-31); Albumin Level 4.2 g/dL (3.5-5.0); Alkaline Phosphatase 71 U/L (39-117); Anion Gap 9 (12-20); Aspartate Amino Transferase 16 U/L (5-31); Bilirubin Total 0.7 mg/dL (0.0-1.0); Blood Urea Nitrogen 13 mg/dL (9-16); Calcium 9.7 mg/dL (8.4-10.2); Carbon Dioxide 29 mmol/L (22-29); Chloride 109 mmol/L (96-108); Estimated Glomerular Filt Rate > 60; Glucose Random 110 mg/dL (60-115); Potassium 4.1 mmol/L (3.3-5.1); Sodium 143 mmol/L (135-145); Total Protein 7.4 g/dL (6.5-8.0)
[2023-05-18 10:58] LABS: TSH reflex Free T4 0.84 uIU/mL (0.32-4.0)
== END 2023-05-18 09:34 | disposition home or self-care (01) ==
LOC: HO.LAB 09:33
PROVIDERS: PCP Physician Assistant; Visit Provider Nurse Practitioner Family
DX: Z01.812 Encounter for preprocedural laboratory examination (principal); Z13.29 Encounter for screening for other suspected endocrine disorder
CPT/HCPCS: 36415; 80053; 84443; 85025

== ENCOUNTER 2023-05-18 10:53 | Outpatient (AMB) | payer OTHER, SELFPAY ==
[2023-05-18 10:59] VITALS: BP 160/100; PULSE 94; O2SAT 96; BMI 27.3
--- NOTE | 2023-05-18 10:59 | A.OFFPC_ITS ---
Vital Signs 05/18/23 10:59 05/18/23 11:11 05/18/23 11:39 Height 5 ft 2.5 in Weight 151 lb 8 oz BMI 27.3 BP 160/100 H 140/90 H 132/88 Blood Pressure Location Lt brachial Lt brachial Lt brachial Position Sitting Sitting Sitting Pulse 94 Pulse Source Pulse Oximeter Pulse Oximetry (%) 96 Oxygen Delivery Method Room Air Intake Visit Reasons: cataract surgery on L eye, 06/05/23 Vise Hand Required: No Accompanied by: Self / Same As Patient Allergies No Known Allergies Allergy (Verified 05/18/23 11:37) Medication List - Last Reconciled 05/18/23 by Doroteo White MD amlodipine 5 mg PO DAILY ascorbate calcium (vitamin C) 500 mg PO DAILY calcium carbonate 600 mg PO DAILY cane As directed cholecalciferol (vitamin D3) 25 mcg PO DAILY hydrochlorothiazide 12.5 mg PO DAILY 90 days sumatriptan succinate take 1 tab at onset of headache; if no relief may repeat 1 tab after at least 2 hrs; max = 4 tabs/24 hr PO Tobacco use date assessed: 05/18/23 Fall risk assessment: No Falls in past year Last assessed Fall Risk: 05/18/23 Dental Screening Dental Screen Date: 05/18/23 Did you have a dental visit in the last 12 months?: No Did you have a dental problem in the last 6 months where you did not have access to dental care?: No Was dental information given to patient?: No HPI cataract surgery on L eye, 06/05/23 HPI Details Patient comes in at the request of Dr. Lucas De La Torre of the [facility] for a preoperative medical examination for clearance for surgery She is scheduled for cataract extraction/phacoemulsification with IOL of the left eye under MAC on 06/05/2023, and states that the same procedure will be done on the contralateral eye a couple of weeks later Patient states that she currently feels okay She denies any headaches or dizziness Denies any chest pains, no SOB No nausea/vomiting, no abdominal pain No change in bowel habits noted States that she had some follow up labs done earlier this morning [facility] Medical History (Updated 05/18/23 @ 12:07 by Doroteo White MD) Vitamin D deficiency Essential hypertension History of fracture of humerus History of fracture of wrist Post-menopausal Fracture, radius and ulna, proximal Conjunctivitis Surgical History (Updated 05/18/23 @ 12:01 by Doroteo White MD) History of open reduction and internal fixation (ORIF) procedure History of colonoscopy History of foot surgery H/O bilateral breast reduction surgery Family History Father Diabetes Mother Diabetes Hyperlipidemia Sister Gynecologic cancer Sister Breast cancer Son Multiple sclerosis Daughter Obesity Social History Household Members: None Housing: House Alcohol intake: never Patient Tobacco Use Status: Never used Tobacco e-Cigarette/Vaping Use: Never Used Second Hand Smoke Exposure: No service: No Current occupational status: disabled Sexual orientation: Straight/Heterosexual Gender identity: Female Cognitive needs: Yes (cane) Hearing needs: No Vision needs: Yes (glasses) Questionnaire PHQ-9 Over the last 2 weeks, how often have you been bothered by any of the following problems? 1. Little interest or pleasure in doing things: not at all 2. Feeling down, depressed, or hopeless: not at all 3. Trouble falling or staying asleep, or sleeping too much: not at all 4. Feeling tired or having little energy: not at all 5. Poor appetite or overeating: not at all 6. Feeling bad about yourself - or that you are a failure or have let yourself or your family down: not at all 7. Trouble concentrating on things, such as reading the newspaper or watching television: not at all 8. Moving or speaking so slowly that other people could have noticed. Or the opposite - being so fidgety or restless that you have been moving around a lot more than usual: not at all 9. Thoughts that you would be better off or of hurting yourself in some way: not at all Total score: 0 Depression Screening Interpretation: Negative Depression Screening Done: Yes 06990 - PHQ-9 Billing: Yes Source: Developed by Drs. Everette Wills, Linda Foster, Jair Donovan and colleagues, with an educational sony from [employer]. Thrive Questionnaire Date Thrive assessed: 09/01/22 I am a: Patient What is your living situation today?: I have a steady place to live Within the past 12 months, did the food you bought not last and you didn't have the money to get more?: Never true Do you have trouble paying for medicines?: No Do you have trouble getting transportation to medical appointments?: No Do you have trouble paying your heating and electricity bill?: No Do you have trouble taking care of your child, family member or friend?: No Do you have trouble with day-to-day activities such as bathing, preparing meals, shopping, managing finances, etc.?: No Are you currently unemployed and looking for a job?: No Are you interested in more education?: No Please select the resources that you would like help with: None Currently or been in a relationship where the following occur: no concerns reported AUDIT C Alcohol Use Questionnaire (AUDIT-C) 1. How often do you have a drink containing alcohol?: Never Total Score: 0 Score Reviewed/Action Taken: Yes MARII-7 AMB Questionnaire MARII-7 Date MARII - 7 assessed: 05/18/23 Feeling nervous, anxious, or on edge: 0 = Not at all Not being able to stop or control worryin = Not at all Worrying too much about different things: 0 = Not at all Trouble relaxin = Not at all Being so restless that it is hard to sit still: 0 = Not at all Becoming easily annoyed or irritable: 0 = Not at all Feeling afraid as if something awful might happen: 0 = Not at all Total MARII-7 score (0-4 normal; 5-9 mild; 10-14 moderate; 15-21 severe): 0 Source: Developed by Drs. Everette Wills, Linda Foster, Jair Donovan and colleagues, with an educational sony from [employer]. Review of Systems Const Denies fatigue, Denies fever(s) and Denies headache(s) ENT Denies dysphagia, Denies dizziness, Denies otalgia, Denies headache(s), Denies neck pain, Denies odynophagia and Denies sore throat Card Denies chest pain, Denies palpitations and Denies dyspnea Resp Denies cough and Denies dyspnea GI Denies abdominal pain, Denies constipation, Denies dysphagia, Denies heartburn, Denies diarrhea, Denies nausea, Denies odynophagia and Denies vomiting Denies difficulty voiding, Denies nocturia and Denies dysuria Musc Denies neck pain Skin/Breast Denies rash Neuro Denies dizziness and Denies headache(s) Endo Denies fatigue and Denies palpitations Physical exam (Primary Care) Vital Signs: Last Vital Signs Pulse 94 05/18/23 10:59 BP 140/90 H 05/18/23 11:11 Pulse Ox 96 05/18/23 10:59 Oxygen Delivery Method Room Air 05/18/23 10:59 BMI result Body Mass Index 27.3 Tobacco/Smoking Status: Tobacco use Status Tobacco use date assessed 05/18/23 05/18/23 11:06 Patient Tobacco Use Status Never used Tobacco 05/18/23 11:06 e-Cigarette/Vaping Use Never Used 05/18/23 11:06 PHQ-9: PHQ-9 Score PHQ-9: Total score 0 05/18/23 11:11 Depression Screening Interpretation: Negative Thrive Assessment: Date of Thrive Assessment Date Thrive assessed 09/01/22 05/18/23 11:06 Currently or been in a relationship where the following occur: no concerns reported Const General: no acute distress and alert Neck Neck: Yes no lymphadenopathy and Yes supple Resp Auscultation: clear to auscultation bilaterally, no rales and no wheezes Cardio Rate: regular rate Rhythm: regular rhythm Heart sounds: no murmurs GI Palpation (GI): Soft to palpation, nontender and No hepatosplenomegaly present Extrem General: Yes no clubbing, cyanosis or edema Results Reviewed Results Reviewed: Laboratory Tests 05/18/23 09:38 WBC 7.6 Hgb 13.3 Hct 42.3 Plt Count 225 Sodium 143 Potassium 4.1 Creatinine 0.76 Estimated GFR > 60 Random Glucose 110 Calcium 9.7 AST 16 ALT 10 TSH 0.84 Assessment and Plan Assessment & Plan (1) Preoperative examination: Code(s): Z01.818 - Encounter for other preprocedural examination Plan: Patient presents with acceptable risks for planned low cardiac risk procedure Results of her labs done earlier today reviewed/discussed with patient - labs are mostly normal/within acceptable range (2) Cataracts, bilateral: Code(s): H26.9 - Unspecified cataract Qualifiers: Cataract type: age-related Age-related cataract type: unspecified Qualified Code(s): H25.9 - Unspecified age-related cataract Plan: She is scheduled for cataract extraction/phacoemulsification with IOL of the left eye under MAC on 06/05/[address] De La Torre, followed by the same procedure on the right eye a couple of weeks later (3) Essential hypertension: Code(s): I10 - Essential (primary) hypertension Plan: Reinforced low sodium diet Her initial BP today was very high but it has gradually settled down and is almost back to her baseline on repeat BP check Patient states that her blood pressure is usually well-controlled and she's had no problems with her blood pressure lately She is advised to continue monitoring her blood pressure regularly Continue Amlodipine 5 mg QD and HCTZ 12.5 mg QD (4) Migraines: Code(s): G43.909 - Migraine, unspecified, not intractable, without status migrainosus Qualifiers: Migraine type: unspecified Status migrainosus presence: without status migrainosus Intractability: not intractable Qualified Code(s): G43.909 - Migraine, unspecified, not intractable, without status migrainosus Plan: Stable Continue Sumatriptan 25 mg PRN as instructed Reinforced avoidance of migraine triggers (5) Vitamin D deficiency: Code(s): E55.9 - Vitamin D deficiency, unspecified Plan: Continue Vitamin D3 1000 units QD (6) Osteoarthritis of multiple joints: Code(s): M15.9 - Polyosteoarthritis, unspecified Qualifiers: Osteoarthritis type: primary Qualified Code(s): M15.9 - Polyosteoarthritis, unspecified Plan: She has been seen and evaluated by rheumatology last year (2021) and was advised that most of her joint pains are due to osteoarthritis She has tested positive for REGLA previously but was advised that she has no objective findings of inflammatory joint disease and was recommended to just continue taking Acetaminophen PRN for pain and to just follow up with rheumatology on an as-needed basis Plan Patient is currently medically optimized and does not appear to have any contraindications to undergo cataract surgery of both eyes as planned - she is presently MEDICALLY CLEARED for surgery To return as scheduled in July 2023 for her annual physical examination with her PCP Orders: Orders Complete Blood Count Auto Diff Today Z01.812 - Encounter for preprocedural laboratory examination Comprehensive Met. Panel Today Z01.812 - Encounter for preprocedural laboratory examination TSH reflex Free T4 Today Z01.812 - Encounter for preprocedural laboratory examination Coding Level of Care Code Est Pt Level 4 (36316) Diagnoses Preoperative examination Z01.818 Age-related cataract of both eyes, unspecified age-related cataract type H25.9 Cataract type: age-related Age-related cataract type: unspecified Essential hypertension I10 Migraine without status migrainosus, not intractable, unspecified migraine type G43.909 Migraine type: unspecified Status migrainosus presence: without status migrainosus Intractability: not intractable Vitamin D deficiency E55.9 Primary osteoarthritis involving multiple joints M15.9 Osteoarthritis type: primary
[2023-05-18 11:11] VITALS: BP 140/90
[2023-05-18 11:39] VITALS: BP 132/88
== END 2023-05-18 11:47 | disposition home or self-care (01) ==
PROVIDERS: PCP Physician Assistant; Visit Provider Internal Medicine
DX: Z01.818 Encounter for other preprocedural examination (principal); H25.9 Unspecified age-related cataract; I10 Essential (primary) hypertension; G43.909 Migraine, unspecified, not intractable, without status migrainosus; E55.9 Vitamin D deficiency, unspecified; M15.9 Polyosteoarthritis, unspecified
CPT/HCPCS: 99214

== ENCOUNTER 2023-06-30 09:59 | Outpatient (REF) | payer OTHER, SELFPAY | END 2023-06-30 10:00 | disposition home or self-care (01) | LOC: HO.MAMMO 09:59 | PROVIDERS: PCP Internal Medicine; Visit Provider Obstetrics & Gynecology | DX: Z13.89 Encounter for screening for other disorder (principal) ==

== ENCOUNTER 2023-08-04 08:39 | Outpatient (REF) | payer OTHER, SELFPAY ==
--- NOTE | ~2023-08-04 | MM_ITS ---
EXAMINATION: BONE DENSITOMETRY CLINICAL INDICATION: Menopausal and female climacteric states. COMPARISON: Previous BD dated 12/28/2020 and baseline BD dated 10/26/2015. TECHNIQUE: Using a [employer] DXA System (software version: 13.1) manufactured by [employer], dual-energy x-ray absorptiometry was performed of the lumbar spine and left hip. The images are of good technical quality. Summary results are attached. FINDINGS: LEFT FEMUR, NECK: Current: BMD 0.742 g/cm2, Z-score -0.8, T-score -2.1, osteopenia. Prior: BMD 0.704 g/cm2. Baseline: BMD 0.766 g/cm2. LEFT FEMUR, TOTAL: Current: BMD 0.777 g/cm2, Z-score -0.8, T-score -1.8, osteopenia, 5.7% increase from previous, 0.4% increase from baseline (<5% change is not significant). Prior: BMD 0.735 g/cm2. Baseline: BMD 0.774 g/cm2. AP SPINE L1-L3 (excluding L4): The data of L1-L4 has been changed to exclude the L4 vertebral body, because degenerative sclerosis at this level may cause overestimation of lumbar spine density. Current: BMD 0.946 g/cm2, Z-score -0.6, T-score -1.9, osteopenia, 7.2% decrease from previous, 1.3% increase from baseline (<5% change is not significant). Prior: BMD 1.019 g/cm2. Baseline: BMD 0.934 g/cm2. IDENTIFIED RISK FACTORS: Menopause, history of fracture (adult). HISTORY OF FRACTURE: Wrist. Other. MEDICATIONS: Calcium supplements or multivitamin, vitamin D. MM/XR DEXA axial skeleton IMPRESSION: 1. DIAGNOSIS: Osteopenia based on the lowest T-score value of -2.1 in the femoral neck applying World Health Organization criteria. 2. 10-YEAR FRACTURE RISK PREDICTION, FRAX: Major osteoporotic fracture (clinical spine, forearm, hip or shoulder) 14.0%. Hip fracture 2.7%. 3. Treatment Recommendations: NOF guidelines recommend consideration for treatment in postmenopausal women and men age 50 and older presenting with the following: -A hip or vertebral (clinical or morphometric) fracture. -T-score less than or equal to -2.5 at the femoral neck or spine after appropriate evaluation to exclude secondary causes. -Low bone mass at the hip or spine and a 10-year fracture probability by FRAX of greater than or equal to 3% for hip fracture or greater than or equal to 20% for major osteoporotic fracture based on the [place] adapted WHO algorithm. 4. Other Recommendations: All treatment decisions require clinical judgment and consideration of individual patient factors, including patient preferences, comorbidities, previous drug use, risk factors not captured in the FRAX model (e.g. frailty, falls, vitamin D deficiency, increased bone turnover, interval significant decline in bone density) and possible under or overestimation of fracture risk by FRAX. Additional medical evaluation for secondary cause of low bone mineral density may be appropriate. FUTURE SCAN RECOMMENDATION: People with diagnosed cases of osteoporosis or at high risk for fracture should have regular bone mineral density tests. For patients eligible for Medicare, routine testing is allowed once every 2 years. The testing frequency can be increased to one year for patients who have rapidly progressing disease, those who are receiving or discontinuing medical therapy to restore bone mass, or have additional risk factors.
== END 2023-08-04 08:40 | disposition home or self-care (01) ==
LOC: HO.MAMMO 08:39
PROVIDERS: PCP Internal Medicine; Visit Provider Internal Medicine
DX: Z13.820 Encounter for screening for osteoporosis (principal); Z78.0 Asymptomatic menopausal state
CPT/HCPCS: 77080

== ENCOUNTER 2023-08-18 13:09 | Outpatient (AMB) | payer OTHER, SELFPAY ==
--- NOTE | 2023-08-18 13:13 | A.OFFPC_ITS ---
Vital Signs 08/18/23 13:17 Height 5 ft 2.5 in Weight 152 lb BMI 27.4 BP 112/68 Blood Pressure Location Lt brachial Position Sitting Pulse 82 Pulse Source Pulse Oximeter Pulse Oximetry (%) 96 Oxygen Delivery Method Room Air Intake Visit Reasons: pe Intake Note: Patient is here today for a physical. Assistant To The President Required: No Accompanied by: Self / Same As Patient Allergies No Known Allergies Allergy (Verified 08/18/23 13:37) Medication List - Last Reconciled 08/18/23 by Fer Rai PA-C amlodipine 5 mg PO DAILY ascorbate calcium (vitamin C) 500 mg PO DAILY calcium carbonate 600 mg PO DAILY cane As directed cholecalciferol (vitamin D3) 25 mcg PO DAILY hydrochlorothiazide 12.5 mg PO DAILY 90 days sumatriptan succinate take 1 tab at onset of headache; if no relief may repeat 1 tab after at least 2 hrs; max = 4 tabs/24 hr PO Tobacco use date assessed: 08/18/23 Fall risk assessment: No Falls in past year Last assessed Fall Risk: 08/18/23 Dental Screening Dental Screen Date: 08/18/23 Did you have a dental visit in the last 12 months?: No Did you have a dental problem in the last 6 months where you did not have access to dental care?: Yes Was dental information given to patient?: Patient has dentist HPI pe HPI Details Sarah is a 68-year-old female here today for routine annual physical . Patient has a past medical history significant for anxiety, migraines, nephrolithiasis, hypertension. Concerns--> reports she has been suffering with increasing anxiety on intermittent basis. She feels he has a panic disorder. She is interested in a medication to help as needed for her anxiety. .. Bilateral hand arthritis and arthritic deformity: Does have positive REGLA, has seen Rheumatology in the past whom recommend continue Tylenol for arthritic pain. She is interested in getting some benefit through her insurance due to her bilateral hand arthritis. ? .. ? HTN: Report at home her BP is normal 120s to 130 systolic, today in office acceptable. Patient denies any chest pain, shortness of breath, sustain headaches. .. Osteopenia: Most recent Bone density showing oseopenia--> has been using calcium and vitamin-D supplements.? ? ?Colon cancer screening: Colonoscopy done in 2019, hyperplastic polyp repeat 10 years. 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: Mammogram done April 2023, BI-RADS 1 Vaccines: Up-to-date with COVID vaccine, pneumonia vaccine and tetanus vaccine, considering shingles vaccine [facility] Medical History (Updated 08/19/23 @ 07:50 by Fer Rai PA-C) Osteoarthritis of both knees Vitamin D deficiency Essential hypertension History of fracture of humerus History of fracture of wrist Post-menopausal Fracture, radius and ulna, proximal Conjunctivitis Surgical History History of open reduction and internal fixation (ORIF) procedure History of colonoscopy History of foot surgery H/O bilateral breast reduction surgery Family History Father Diabetes Mother Diabetes Hyperlipidemia Sister Gynecologic cancer Sister Breast cancer Son Multiple sclerosis Daughter Obesity Social History Household Members: None Housing: House Alcohol intake: never Patient Tobacco Use Status: Never used Tobacco e-Cigarette/Vaping Use: Never Used Second Hand Smoke Exposure: No service: No Current occupational status: disabled Sexual orientation: Straight/Heterosexual Gender identity: Female Cognitive needs: Yes (cane) Hearing needs: No Vision needs: Yes (glasses) Questionnaire Thrive Questionnaire Date Thrive assessed: 08/18/23 I am a: Patient What is your living situation today?: I have a steady place to live Within the past 12 months, did the food you bought not last and you didn't have the money to get more?: Never true Within the past 12 months, did you worry whether your food would run out before you got money to buy more?: Never true Do you have trouble paying for medicines?: No Do you have trouble getting transportation to medical appointments?: No Do you have trouble paying your heating and electricity bill?: No Do you have trouble taking care of your child, family member or friend?: No Do you have trouble with day-to-day activities such as bathing, preparing meals, shopping, managing finances, etc.?: No Are you currently unemployed and looking for a job?: No Are you interested in more education?: No Please select the resources that you would like help with: None Currently or been in a relationship where the following occur: no concerns reported THRIVE Score: 0 AUDIT C Alcohol Use Questionnaire (AUDIT-C) 1. How often do you have a drink containing alcohol?: Never 3. How often do you have six or more drinks on one occasion?: Never Total Score: 0 Score Reviewed/Action Taken: Yes MARII-7 AMB Questionnaire MARII-7 Date MARII - 7 assessed: 08/18/23 Feeling nervous, anxious, or on edge: 2 = More than half the days Not being able to stop or control worryin = More than half the days Worrying too much about different things: 3 = Nearly every day Trouble relaxin = More than half the days Being so restless that it is hard to sit still: 1 = Several days Becoming easily annoyed or irritable: 1 = Several days Feeling afraid as if something awful might happen: 0 = Not at all Total MARII-7 score (0-4 normal; 5-9 mild; 10-14 moderate; 15-21 severe): 11 Source: Developed by Drs. Everette Wills, Linda Foster, Jair Donovan and colleagues, with an educational sony from [employer]. MARII-7 Assessment Billing MARII-7 Assessment Tool: MARII-7 Assessment 09565 Review of Systems Const Denies body aches, Denies chills, Denies excessive sweating, Denies fatigue, Denies fever(s) and Denies headache(s) Eyes Denies blurry vision ENT Denies dysphagia, Denies vertigo, Denies dizziness, Denies headache(s), Denies hearing loss and Denies tinnitus Card Denies chest pain, Denies chest pain with activity, Denies syncope, Denies irregular heart rhythm and Denies dyspnea Resp Denies chest congestion, Denies cough, Denies hemoptysis, Denies dyspnea and Denies wheezing GI Denies abdominal pain, Denies melena, Denies hematochezia, Denies coffee ground emesis, Denies dysphagia, Denies diarrhea, Denies nausea and Denies vomiting Denies urinary frequency, Denies dysuria, Denies urinary hesitancy and Denies urinary urgency Musc Denies arthralgias, Denies limited range of motion, Denies muscle cramps and Denies muscle weakness Skin/Breast Denies rash and Denies skin ulcer Neuro Denies Abnormal speech present, Denies confusion, Denies vertigo, Denies dizziness, Denies syncope, Denies headache(s), Denies memory loss and Denies seizure-like activity Psych Denies anxiety, Denies confusion, Denies depression, Denies memory loss, Denies panic attacks and Denies paranoia Endo Denies excessive sweating, Denies fatigue, Denies flushing, Denies polydipsia an d Denies polyuria Aller/Immun Denies wheezing Physical exam (Primary Care) Vital Signs: Last Vital Signs Pulse 82 08/18/23 13:17 BP 112/68 08/18/23 13:17 Pulse Ox 96 08/18/23 13:17 Oxygen Delivery Method Room Air 08/18/23 13:17 BMI result Body Mass Index 27.4 Tobacco/Smoking Status: Tobacco use Status Tobacco use date assessed 08/18/23 08/18/23 13:35 Patient Tobacco Use Status Never used Tobacco 08/18/23 13:14 e-Cigarette/Vaping Use Never Used 08/18/23 13:14 Thrive Assessment: Date of Thrive Assessment Date Thrive assessed 08/18/23 08/18/23 13:38 Currently or been in a relationship where the following occur: no concerns reported Const General: cooperative, comfortable, no acute distress, alert and awake; No confusion Orientation/consciousness: oriented to person, oriented to place, patient oriented x3 and No confusion HENMT Head: Yes normocephalic Ears: external ears normal and TM's normal bilaterally Face and sinus: No sinus tenderness Mouth: Normal oral and palatal mucosa present and tongue normal Teeth and gingiva: dentition normal and gingiva normal Throat: Yes posterior oropharynx normal, Yes tonsils normal and Yes uvula midline Eyes Conjunctivae: conjunctivae normal Sclerae: sclerae normal Pupils: Equal, round and reactive pupils present EOM: EOMs intact bilaterally Direct Ophthalmoscopy: No no photophobia Neck Neck: Yes no lymphadenopathy, No tender and Yes no JVD Thyroid: Thyroid normal Carotids: no bruits Chest Chest palpation & inspection: no tenderness Resp Effort & Inspection: normal respiratory effort, no audible wheezes, not labored and no stridor Auscultation: no crackles, no rales, no rhonchi and no wheezes Cardio Jugular venous distension: no JVD Rate: regular rate, not bradycardic and not tachycardic Rhythm: regular rhythm Bruits: no carotid bruits Peripheral pulses: Peripheral pulses 2+ throughout GI Inspection: Yes normal to inspection, No abdominal wall ecchymosis and No visible herniation Palpation (GI): Soft to palpation, nontender, no guarding, not rigid and No hepatosplenomegaly present Auscultation: normoactive bowel sounds General: Yes no CVA tenderness Back/Spine/Pelvis Back: no CVA tenderness and No back tenderness Cervical Spine: cervical ROM normal Thoracic/Lumbar Spine: thoracic and lumbar spine normal to inspection, straight leg raise negative bilaterally, No thoraco-lumbar ROM limited and No lumbar spinal tenderness Skin Lesions: no lesions Rashes: no rashes Wounds: no wounds Neuro General: oriented to person, oriented to place, patient oriented x3, CN's II-XI intact bilaterally and No confusion Cranial nerves: Yes Equal, round and reactive pupils present and Yes Normal accommodation reflex present Cognition (Neuro): normal cognition Speech: No Abnormal speech present Gait exam (Neuro): Normal gait present Motor exam (neuro): 5/5 motor strength present throughout Extrem Right upper extremity: full ROM; no cyanosis Left upper extremity: full ROM; no cyanosis Right lower extremity: no edema Left lower extremity: no edema Psych Appearance: grossly normal Mental Status: mental status grossly normal Affect: normal affect Attitude: cooperative Thought process: Normal thought process present Assessment and Plan Assessment & Plan (1) Annual physical exam: Code(s): Z00.00 - Encounter for general adult medical examination without abnormal findings (2) Hammertoe of left foot: Code(s): M20.42 - Other hammer toe(s) (acquired), left foot Plan: Would like to see Podiatry for evaluation of a left hammertoe that is very bothersome to her and is in lot of pain. She has seen podiatry in the past though was unable to get surgery due to insurance issues. (3) Essential hypertension: Code(s): I10 - Essential (primary) hypertension Plan: Patient's blood pressure acceptable today in office. Will continue her current dose of antihypertensive medication with goal blood pressure to be below 140/90 (4) Osteoarthritis of multiple joints: Code(s): M15.9 - Polyosteoarthritis, unspecified Qualifiers: Osteoarthritis type: primary Qualified Code(s): M15.9 - Polyosteoarthritis, unspecified Plan: Has bilateral hand arthritis. Has seen Rheumatology in the past. Does have positive REGLA. Continues to use Tylenol for relief of her arthritic pain. (5) Panic attacks: Code(s): F41.0 - Panic disorder [episodic paroxysmal anxiety] Plan: Patient's MARII-7 score positive for anxiety. She has not interested in speaking with a mental health therapist at this time.. Patient does report having anxious symptoms from time to time. She would like a medication as needed for her anxiety. Will supply her with hydroxyzine 10 mg to use on a p.r.n. basis. Orders: Orders Microalbumin, Random (w Creat) 08/18/23 I10 - Essential (primary) hypertension Comprehensive Lipan. Panel Fast 08/18/23 I10 - Essential (primary) hypertension Vitamin D 25-OH Total 08/18/23 E55.9 - Vitamin D deficiency, unspecified Referrals Podiatry Referral M20.42 - Other hammer toe(s) (acquired), left foot Medications: New hydroxyzine HCl 10 mg PO ONCE 14 days PRN 14 tabs 1RF anxiety F41.0 - Panic disorder [episodic paroxysmal anxiety], F41.9 - Anxiety disorder, unspecified Refilled amlodipine 5 mg PO DAILY 90 tabs 1RF I10 - Essential (primary) hypertension hydrochlorothiazide 12.5 mg PO DAILY 90 days 90 tabs 1RF I10 - Essential (primary) hypertension sumatriptan succinate take 1 tab at onset of headache; if no relief may repeat 1 tab after at least 2 hrs; max = 4 tabs/24 hr PO 9 tabs 1RF G43.909 - Migraine, unspecified, not intractable, without status migrainosus Coding Level of Care Code Est Pt Prev Care >65y(76003) Diagnoses Annual physical exam Z00.00 Hammertoe of left foot M20.42 Essential hypertension I10 Primary osteoarthritis involving multiple joints M15.9 Osteoarthritis type: primary Panic attacks F41.0 Additional Codes MARII-7 Assessment Billing - MARII-7 Assessment Tool: MARII-7 Assessment [id number] ([id number])
[2023-08-18 13:17] VITALS: BP 112/68; PULSE 82; O2SAT 96; BMI 27.4
== END 2023-08-18 14:04 | disposition home or self-care (01) ==
PROVIDERS: PCP Physician Assistant; Visit Provider Physician Assistant
DX: Z00.00 Encounter for general adult medical examination without abnormal findings (principal); M20.42 Other hammer toe(s) (acquired), left foot; I10 Essential (primary) hypertension; M15.9 Polyosteoarthritis, unspecified; F41.0 Panic disorder [episodic paroxysmal anxiety]
CPT/HCPCS: 96127; 99397

== ENCOUNTER 2023-09-08 11:20 | Outpatient (AMB) | payer OTHER, SELFPAY ==
[2023-09-08 11:23] VITALS: BP 136/78; BMI 27.0
--- NOTE | 2023-09-08 11:23 | MHC.OFFVIS ---
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 T score @ spine and femoral Neck respectively were=-1.9 /-2.1 and 10 year FRAX risk = 14/2.7% for severe osteoporosis and fracture. [facility] Medical History Osteoarthritis of both knees Vitamin D deficiency Essential hypertension History of fracture of humerus History of fracture of wrist Post-menopausal Fracture, radius and ulna, proximal Conjunctivitis Surgical History History of open reduction and internal fixation (ORIF) procedure History of colonoscopy History of foot surgery H/O bilateral breast reduction surgery Family History Father Diabetes Mother Diabetes Hyperlipidemia Sister Gynecologic cancer Sister Breast cancer Son Multiple sclerosis Daughter Obesity Social History Household Members: None Housing: House Alcohol intake: never Patient Tobacco Use Status: Never used Tobacco e-Cigarette/Vaping Use: Never Used Second Hand Smoke Exposure: No service: No Current occupational status: disabled Sexual orientation: Straight/Heterosexual Gender identity: Female Cognitive needs: Yes (cane) Hearing needs: No Vision needs: Yes (glasses) Female Reproductive History Menstrual control method: none Total pregnancies: 3 Full term: 3 History of abnormal pap smear: No Review of Systems Const All systems reviewed & are unremarkable except as noted in HPI and below Reports as per HPI and Reports no additional complaints GI Reports no additional complaints Reports no additional complaints Physical Exam Vital Signs: Last Vital Signs BP 136/78 09/08/23 11:23 BMI result Body Mass Index 27.0 Assessment & Plan Assessment & Plan (1) Osteopenia: Code(s): M85.80 - Other specified disorders of bone density and structure, unspecified site Qualifiers: Osteopenia location: unspecified Qualified Code(s): M85.80 - Other specified disorders of bone density and structure, unspecified site Plan: Discussed with the patient the DEXA results and FRAX risk. FRAX risk and T score showed no evidence of osteoporosis. Discussed with the patient all the options for osteoporosis prevention including lifestyle modifications including Ca+D supplements 1200 mg po qd/800 MIU, Weight bearing exercises and proteine supplements. The patient verbalized understanding and agreed plan will repeat DEXA in 2 years. Coding Level of Care Code Est Pt Level 3 (93595) Diagnoses Osteopenia, unspecified location M85.80 Osteopenia location: unspecified
== END 2023-09-08 11:47 | disposition home or self-care (01) ==
LOC: HO.HWS 11:20
PROVIDERS: PCP Internal Medicine; Visit Provider Obstetrics & Gynecology
DX: M85.80 Other specified disorders of bone density and structure, unspecified site (principal)
CPT/HCPCS: 99213

== ENCOUNTER → 2023-09-08 11:20 | Outpatient (BNVA) | payer OTHER, SELFPAY | PROVIDERS: PCP Internal Medicine; Visit Provider Obstetrics & Gynecology | DX: M85.80 Other specified disorders of bone density and structure, unspecified site (principal) | CPT/HCPCS: 99212 ==

== ENCOUNTER 2024-02-02 09:48 | Outpatient (REF) | payer OTHER, SELFPAY ==
[2024-02-02 11:10] LABS: Creatinine Urine 169.91 mg/dL; Microalbum/Creatinine Ratio Ur 8.2 ug/mg cr (<30)
[2024-02-02 11:11] LABS: Alanine Aminotransferase 15 U/L (0-31); Albumin Level 4.3 g/dL (3.5-5.0); Alkaline Phosphatase 73 U/L (39-117); Anion Gap 12 (12-20); Aspartate Amino Transferase 18 U/L (5-31); Bilirubin Total 0.4 mg/dL (0.0-1.0); Blood Urea Nitrogen 14 mg/dL (9-16); Calcium 9.9 mg/dL (8.4-10.2); Carbon Dioxide 26 mmol/L (22-29); Chloride 108 mmol/L (96-108); Estimated Glomerular Filt Rate > 60; Glucose Fasting 104 mg/dL (60-99); Potassium 4.2 mmol/L (3.3-5.1); Sodium 142 mmol/L (135-145); Total Protein 7.6 g/dL (6.5-8.0)
[2024-02-02 11:28] LABS: Vitamin D 25-OH Total 34.5 ng/mL (>30)
== END 2024-02-02 09:49 | disposition home or self-care (01) ==
LOC: HO.LAB 09:48
PROVIDERS: PCP Physician Assistant; Visit Provider Physician Assistant
DX: I10 Essential (primary) hypertension (principal); E55.9 Vitamin D deficiency, unspecified
CPT/HCPCS: 36415; 80053; 82043; 82306; 82570

== ENCOUNTER 2024-02-23 13:46 | Outpatient (AMB) | payer OTHER, SELFPAY ==
--- NOTE | 2024-02-23 13:53 | A.OFFPC_ITS ---
Vital Signs 02/23/24 13:54 Height 5 ft 2.5 in Weight 157 lb 6 oz BMI 28.3 BP 128/76 Blood Pressure Location Lt brachial Position Sitting Pulse 65 Pulse Source Pulse Oximeter Pulse Oximetry (%) 98 Oxygen Delivery Method Room Air Intake Visit Reasons: left foot surgery 03/04 Intake Note: Patient is here for a Pre-op for left foot bunion correction scheduled with Dr. Marcano on 03/03/24. . Strap Buckler Required: No Accompanied by: Self / Same As Patient Allergies No Known Allergies Allergy (Verified 02/23/24 14:08) Medication List - Last Reconciled 02/23/24 by Fer Rai PA-C amlodipine 5 mg PO DAILY ascorbate calcium (vitamin C) 500 mg PO DAILY calcium carbonate 600 mg PO DAILY cane As directed cholecalciferol (vitamin D3) 25 mcg PO DAILY hydrochlorothiazide 12.5 mg PO DAILY 90 days hydroxyzine HCl 10 mg PO ONCE PRN 14 days sumatriptan succinate take 1 tab at onset of headache; if no relief may repeat 1 tab after at least 2 hrs; max = 4 tabs/24 hr PO Tobacco use date assessed: 08/18/23 Fall risk assessment: No Falls in past year Last assessed Fall Risk: 02/23/24 Dental Screening Dental Screen Date: 08/18/23 HPI left foot surgery 03/04 HPI Details Sarah is a 68-year-old female here today for preop visit . Patient is due for left foot surgery on March 04. Patient has a past medical history significant for anxiety, migraines, nephrolithiasis, hypertension. Patient has no past medical history of Congestive heart failure, CVA or an KS. She is not on any anticoagulation or antiplatelet therapy at this time. CHRONIC MEDICAL CONDITION--> .. Bilateral hand arthritis and arthritic deformity: Does have positive REGLA, has seen Rheumatology in the past whom recommend continue Tylenol for arthritic pain. She is interested in getting some benefit through her insurance due to her bilateral hand arthritis. ? .. ? HTN: Report at home her BP is normal 120s to 130 systolic, today in office acceptable. Patient denies any chest pain, shortness of breath, sustain headaches. .. Osteopenia: Most recent Bone density showing oseopenia--> has been using calcium and vitamin-D supplements.? Laboratory Tests 05/18/23 02/02/24 09:38 09:57 RBC 4.81 Creatinine 0.76 0.79 Fasting Glucose 104 H TSH 0.84 PFSH Medical History Osteoarthritis of both knees Vitamin D deficiency Essential hypertension History of fracture of humerus History of fracture of wrist Post-menopausal Fracture, radius and ulna, proximal Conjunctivitis Surgical History History of open reduction and internal fixation (ORIF) procedure History of colonoscopy History of foot surgery H/O bilateral breast reduction surgery Family History Father Diabetes Mother Diabetes Hyperlipidemia Sister Gynecologic cancer Sister Breast cancer Son Multiple sclerosis Daughter Obesity Social History Household Members: None Housing: House Alcohol intake: never Patient Tobacco Use Status: Never used Tobacco e-Cigarette/Vaping Use: Never Used Second Hand Smoke Exposure: No service: No Current occupational status: disabled Sexual orientation: Straight/Heterosexual Gender identity: Female Cognitive needs: Yes (cane) Hearing needs: No Vision needs: Yes (glasses) Questionnaire PHQ-9 Over the last 2 weeks, how often have you been bothered by any of the following problems? 1. Little interest or pleasure in doing things: not at all 2. Feeling down, depressed, or hopeless: not at all 3. Trouble falling or staying asleep, or sleeping too much: not at all 4. Feeling tired or having little energy: not at all 5. Poor appetite or overeating: not at all 6. Feeling bad about yourself - or that you are a failure or have let yourself or your family down: not at all 7. Trouble concentrating on things, such as reading the newspaper or watching television: not at all 8. Moving or speaking so slowly that other people could have noticed. Or the opposite - being so fidgety or restless that you have been moving around a lot more than usual: not at all 9. Thoughts that you would be better off or of hurting yourself in some way: not at all Total score: 0 Depression Screening Interpretation: Negative Depression Screening Done: Yes 49506 - PHQ-9 Billing: Yes Source: Developed by Drs. Everette Wills, Jair Wilkerson and colleagues, with an educational sony from [employer]. Thrive Questionnaire Date Thrive assessed: 02/23/24 I am a: Patient What is your living situation today?: I have a steady place to live Within the past 12 months, did the food you bought not last and you didn't have the money to get more?: Never true Within the past 12 months, did you worry whether your food would run out before you got money to buy more?: Never true Do you have trouble paying for medicines?: No Do you have trouble getting transportation to medical appointments?: No Do you have trouble paying your heating and electricity bill?: No Do you have trouble taking care of your child, family member or friend?: No Do you have trouble with day-to-day activities such as bathing, preparing meals, shopping, managing finances, etc.?: No Are you currently unemployed and looking for a job?: Yes Are you interested in more education?: No Please select the resources that you would like help with: None Currently or been in a relationship where the following occur: No concerns reported THRIVE Score: 0 AUDIT C Alcohol Use Questionnaire (AUDIT-C) 1. How often do you have a drink containing alcohol?: Never 3. How often do you have six or more drinks on one occasion?: Never Total Score: 0 Score Reviewed/Action Taken: Yes MARII-7 AMB Questionnaire MARII-7 Date MARII - 7 assessed: 02/23/24 Feeling nervous, anxious, or on edge: 0 = Not at all Not being able to stop or control worryin = Not at all Worrying too much about different things: 0 = Not at all Trouble relaxin = Not at all Being so restless that it is hard to sit still: 0 = Not at all Becoming easily annoyed or irritable: 0 = Not at all Feeling afraid as if something awful might happen: 0 = Not at all Total MARII-7 score (0-4 normal; 5-9 mild; 10-14 moderate; 15-21 severe): 0 Source: Developed by Linda Mccabe Kurt Kroenke and colleagues, with an educational sony from [employer]. MARII-7 Assessment Billing MARII-7 Assessment Tool: MARII-7 Assessment 24241 Review of Systems Const Denies headache(s) Eyes Denies loss of vision ENT Denies vertigo, Denies dizziness, Denies headache(s) and Denies sore throat Card Denies chest pain, Denies leg edema and Denies lightheadedness Resp Denies cough, Denies hemoptysis and Denies wheezing GI Denies abdominal pain, Denies melena, Denies constipation, Denies diarrhea and Denies vomiting Denies urinary frequency, Denies dysuria and Denies urinary urgency Musc Denies arthralgias, Denies joint swelling, Denies numbness and Denies tingling Neuro Denies Abnormal speech present, Denies behavioral changes, Denies vertigo, Denies dizziness, Denies headache(s), Denies loss of vision, Denies memory loss, Denies numbness and Denies tingling Psych Denies anxiety, Denies behavioral changes, Denies depression, Denies memory loss and Denies panic attacks Dom/Lymph Denies easy bleeding and Denies easy bruising Aller/Immun Denies wheezing Physical exam (Primary Care) Vital Signs: Last Vital Signs Pulse 65 02/23/24 13:54 BP 128/76 02/23/24 13:54 Pulse Ox 98 02/23/24 13:54 Oxygen Delivery Method Room Air 02/23/24 13:54 BMI result Body Mass Index 28.3 Tobacco/Smoking Status: Tobacco use Status Tobacco use date assessed 08/18/23 02/23/24 13:54 Patient Tobacco Use Status Never used Tobacco 02/23/24 13:54 e-Cigarette/Vaping Use Never Used 02/23/24 13:54 PHQ-9: PHQ-9 Score PHQ-9: Total score 0 02/23/24 14:14 Depression Screening Interpretation: Negative Thrive Assessment: Date of Thrive Assessment Date Thrive assessed 02/23/24 02/23/24 14:14 Currently or been in a relationship where the following occur: No concerns reported Const General: healthy appearing, no acute distress, alert and awake Nutritional Appearance: well nourished Orientation/consciousness: oriented to person, oriented to place and oriented to time HENMT Ears: TM's normal bilaterally General nose exam: Normal nasal mucous membranes and turbinates present Eyes Conjunctivae: conjunctivae normal Sclerae: sclerae normal Pupils: Equal, round and reactive pupils present Neck Neck: Yes no lymphadenopathy and Yes no JVD Thyroid: Thyroid normal Carotids: no bruits Resp Effort & Inspection: normal respiratory effort and not tachypneic Auscultation: no crackles, no rales, no rhonchi and no wheezes Cardio Rate: regular rate Rhythm: regular rhythm Heart sounds: no murmurs and normal S1 and S2 GI Palpation (GI): Soft to palpation, nontender, no hepatomegaly and no splenomegaly Auscultation: normal bowel sounds Skin General skin exam: no rashes or lesions noted and dry skin Neuro General: oriented to person, oriented to place and oriented to time Cranial nerves: Yes Equal, round and reactive pupils present Speech: No Abnormal speech present Gait exam (Neuro): Normal gait present Motor exam (neuro): no tremor noted Extrem Right upper extremity: full ROM Left upper extremity: full ROM Right lower extremity: full ROM; no edema Left lower extremity: full ROM; no edema Psych Mental Status: mental status grossly normal Speech and movement: Normal speech and movement present Affect: normal affect Attitude: cooperative Thought process: Normal thought process present Assessment and Plan Assessment & Plan (1) Preoperative examination: Code(s): Z01.818 - Encounter for other preprocedural examination Plan: Patient's most recent labs and vitals today in office acceptable. Most recent EKG within normal range. Patient is medically clear for needed left foot surgery. (2) Hammertoe of left foot: Code(s): M20.42 - Other hammer toe(s) (acquired), left foot Plan: As above Orders: Orders Complete Blood Count no Diff 6 Months I10 - Essential (primary) hypertension ECG 12 lead EKG Today Z01.818 - Encounter for other preprocedural examination Microalbumin, Random (w Creat) 6 Months I10 - Essential (primary) hypertension Comprehensive Tower. Panel Fast 6 Months I10 - Essential (primary) hypertension Medications: Refilled amlodipine 5 mg PO DAILY 90 tabs 1RF I10 - Essential (primary) hypertension hydrochlorothiazide 12.5 mg PO DAILY 90 tabs 1RF 90 days I10 - Essential (primary) hypertension sumatriptan succinate take 1 tab at onset of headache; if no relief may repeat 1 tab after at least 2 hrs; max = 4 tabs/24 hr PO 9 tabs 3RF G43.909 - Migraine, unspecified, not intractable, without status migrainosus Coding Level of Care Code Est Pt Level 3 (49154) Diagnoses Preoperative examination Z01.818 Hammertoe of left foot M20.42 Additional Codes MARII-7 Assessment Billing - MARII-7 Assessment Tool: MARII-7 Assessment 60347 ([id number])
[2024-02-23 13:54] VITALS: BP 128/76; PULSE 65; O2SAT 98; BMI 28.3
== END 2024-02-23 14:17 | disposition home or self-care (01) ==
PROVIDERS: PCP Physician Assistant; Visit Provider Physician Assistant
DX: Z01.818 Encounter for other preprocedural examination (principal); M20.42 Other hammer toe(s) (acquired), left foot

== ENCOUNTER → 2024-02-23 13:46 | Outpatient (BNVA) | payer OTHER, SELFPAY | PROVIDERS: PCP Physician Assistant; Visit Provider Physician Assistant | DX: Z01.818 Encounter for other preprocedural examination (principal); M20.42 Other hammer toe(s) (acquired), left foot | CPT/HCPCS: 96127; 99212 ==

== ENCOUNTER → 2024-02-25 09:08 | Outpatient (REF) | payer OTHER, SELFPAY ==
--- NOTE | 2024-02-25 09:15 | ECG_ITS ---
Test Reason : Pre Op Blood Pressure : / mmHG Vent. Rate : 068 BPM Atrial Rate : 068 BPM P-R Int : 160 ms QRS Dur : 086 ms QT Int : 412 ms P-R-T Axes : 064 -04 039 degrees QTc Int : 438 ms Normal sinus rhythm Normal ECG When compared with ECG of 20-SEP-2018 13:40, No significant change was found Referred By: Fer Rai Electronically Signed By:DOTTIE GODFREY
== END ==
LOC: HO.CARD 09:08
PROVIDERS: PCP Physician Assistant; Visit Provider Physician Assistant
DX: Z01.818 Encounter for other preprocedural examination (principal)
CPT/HCPCS: 93005

== ENCOUNTER 2024-04-05 12:10 | Emergency (ER) | payer OTHER, SELFPAY ==
[2024-04-05 12:18] VITALS: BP 152/106; PULSE 80; O2SAT 99
[2024-04-05 12:41] VITALS: BP 134/87; PULSE 72; RESP 18; TEMP 36.8; O2SAT 100; BMI 26.6
--- NOTE | 2024-04-05 12:41 | ED_ITS ---
HPI - General Adult General Chief complaint: General Medical Stated complaint: Nausea after taking percocet Time Seen by Provider: 04/05/24 19:47 Source: patient Limitations: no limitations History of Present Illness ED Provider: Jill Lozano PA-C HPI narrative: Patient is a 68 year old female with a PMH of anxiety and HTN who presents today with nausea. Patient states around 8am she took percocet 5mg and then went to her appointment to have sutures removed from her left foot. While there, she began to feel anxious, lightheaded, and nauseous. She had two episodes of vomiting when she returned home. She is feeling better as the day goes on, and has felt back to normal since receiving anti-nausea medication in the ambulance. This is not a new medication for her and has never had this reaction to it. She denies changes to any of her other medications, recent illness, and fever. Related Data Home Medications ?Medication ?Instructions ?Recorded ?Confirmed ascorbate calcium (vitamin C) 500 500 mg PO DAILY 10/22/21 02/23/24 mg tablet calcium carbonate 600 mg PO DAILY 10/22/21 02/23/24 cholecalciferol (vitamin D3) 25 25 mcg PO DAILY 10/22/21 02/23/24 mcg (1,000 unit) capsule Previous Rx's ?Medication ?Instructions ?Recorded cane #1 ea 05/01/21 hydroxyzine HCl 10 mg tablet 10 mg PO ONCE PRN anxiety 14 days 08/18/23 #14 tabs amlodipine 5 mg tablet 5 mg PO DAILY #90 tabs 02/23/24 hydrochlorothiazide 12.5 mg tablet 12.5 mg PO DAILY 90 days #90 tabs 02/23/24 sumatriptan succinate 25 mg tablet See Rx Instructions PO .COMPLEX #9 02/23/24 tabs Allergies Allergy/AdvReac Type Severity Reaction Status Date / Time No Known Allergies Allergy Verified 04/05/24 12:44 Review of Systems 2 Review of Systems: Yes all other systems are reviewed and are negative Constitutional: Constitutional: Denies chills, Denies fatigue, Denies fever(s) and Denies headache(s) Eyes: Eyes: Denies change in vision and Denies diplopia ENT: Denies headache(s), Denies post nasal drip and Denies tinnitus Cardiovascular: Cardiovascular: Denies Abdominal Distension, Denies chest pain, Denies syncope, Denies leg edema, Reports lightheadedness and Denies dyspnea Respiratory: Respiratory: Denies cough and Denies dyspnea Gastrointestinal: Gastrointestinal: Denies abdominal pain, Denies bloating, Denies coffee ground emesis, Denies constipation, Denies diarrhea, Reports nausea, Reports vomiting and Denies hematemesis Genitourinary: Genitourinary: Denies hematuria, Denies dysuria and Denies urinary urgency Musculoskeletal: Musculoskeletal: Denies myalgias, Denies arthralgias, Denies joint swelling, Denies numbness and Denies stiffness Integumentary/Breasts: Skin/Breast: Denies lesions and Denies rash Neurologic: Denies syncope, Denies headache(s), Denies lack of coordination and Denies numbness Psychiatric: Psychiatric: Reports anxiety, Reports panic attacks, Denies homicidal ideation and Denies suicidal ideation Endocrine: Endocrine: Denies fatigue PMFSH Past Medical History Attestation statement: The following information was validated with the patient. Medical History Osteoarthritis of both knees Vitamin D deficiency Essential hypertension History of fracture of humerus History of fracture of wrist Post-menopausal Fracture, radius and ulna, proximal Conjunctivitis Surgical History History of open reduction and internal fixation (ORIF) procedure History of colonoscopy History of foot surgery H/O bilateral breast reduction surgery Family History Family History Father Diabetes Mother Diabetes Hyperlipidemia Sister Gynecologic cancer Sister Breast cancer Son Multiple sclerosis Daughter Obesity Social History Social History Household Members: None Housing: House Alcohol intake: never Patient Tobacco Use Status: Never used Tobacco e-Cigarette/Vaping Use: Never Used Second Hand Smoke Exposure: No Advance Directives: No Advance Directives Information Provided: No service: No Current occupational status: disabled Sexual orientation: Straight/Heterosexual Gender identity: Female Cognitive needs: Yes (cane) Hearing needs: No Vision needs: Yes (glasses) Physical Exam ED Vital Signs: Vital Signs - 24 hr 04/05/24 21:52 Temperature 98.2 F Pulse Rate 72 Respiratory Rate 18 Blood Pressure 134/87 Pulse Oximetry 100 Oxygen Delivery Method Room Air BMI result Body Mass Index 26.6 Const General: cooperative, healthy appearing, comfortable, no acute distress and well developed; No in distress, anxious, diaphoretic, ill appearing or lethargic Nutritional Appearance: average body habitus Orientation/consciousness: patient oriented x3 and No lethargic Limitations: no limitations HENMT Head: Yes normal to inspection, Yes normocephalic and Yes atraumatic Eyes General: appearance normal, both eyes and all related structures Visual Mejia: normal visual mejia by confrontation Alignment and Position: alignment normal and position normal Periorbital: periorbital findings normal Eyelids: Yes eyelids normal Conjunctivae: conjunctivae normal Sclerae: sclerae normal Corneas: corneas normal Pupils: Equal, round and reactive pupils present EOM: EOMs intact bilaterally Neck Neck: Yes normal visual inspection, Yes full ROM and Yes no meningeal signs Resp Effort & Inspection: normal respiratory effort, able to speak in complete sentences, no audible wheezes, no cough, no nasal flaring and no use of accessory muscles Auscultation: clear to auscultation bilaterally, no rales, no rhonchi and no wheezes Cardio Jugular venous distension: no JVD Rate: regular rate Rhythm: regular rhythm Heart sounds: S1 normal heart sound present and S2 normal heart sound present GI Inspection: Yes normal to inspection and No distended Palpation (GI): Soft to palpation, nontender, no guarding and not rigid Skin General skin exam: no rashes or lesions noted Neuro General: patient oriented x3, moves all extremities, no meningeal signs, no focal motor deficits and CN's II-XI intact bilaterally Cranial nerves: Yes CN's II-XII intact bilaterally, Yes Equal, round and reactive pupils present, Yes Bilaterally intact EOM present and Yes Nystagmus not present Cognition (Neuro): normal cognition Gait exam (Neuro): Normal gait present Extrem General: Yes normal to inspection and Yes full ROM Psych Other: calm and cooperative Appearance: grossly normal Mental Status: mental status grossly normal Speech and movement: Normal speech and movement present and Clear speech present Affect: normal affect Attitude: cooperative Thought process: Normal thought process present Thought content: Normal thought content present Insight: Good insight present (Psych) Judgement: Good judgement present (Psych) Course Course Course Narrative: This is a rapid medical exam performed by C. Debi, LEACH TANK TENDER: Additional HPI, ROS, PE not included below will be deferred to primary provider. Patient is a 68-year-old female presenting with complaint of nausea after taking a percocet around 8am today. She had sutures removed from left foot today. During this appointment she felt nauseated and lightheaded. Has taken percocet in the past without a similar reaction. Medicated with zofran by EMS and nausea has improved. Plan: EKG, labs Medical Decision Making Medical Decision Making [facility] Narrative: I Jill Lozano PA-C have personally assessed and manage the patient,MARCIA Almendarez observed and helped to formulate the documentation Patient is a 68 year old female with a PMH of anxiety and HTN who presents today with nausea. Patient states around 8am she took percocet 5mg and then went to her appointment to have sutures removed from her left foot. While there, she began to feel anxious, lightheaded, and nauseous. She had two episodes of vomiting when she returned home. She is feeling better as the day goes on, and has felt back to normal since receiving anti-nausea medication in the ambulance. This is not a new medication for her and has never had this reaction to it. She denies changes to any of her other medications, recent illness, and fever. PMH: panic attacks, HTN, migraines DDx: medication side effect, hypotension, panic attack/anxiety, ACS, hypoglycemia Plan: Given the patients history of panic attacks and knowing she was anxious to have her sutures removed, it is possible that her symptoms today were due to uncontrolled anxiety. Will rule out other causes. Also considered ACS, as patient states she had anxiety, nausea, and lightheadedness, and she has a history of HTN. Will assess with EKG and troponin. Considered hypotension, however she has a history of HTN and states that her daughter checked her BP when she returned from the appointment and stated it was normal, therefore this is unlikely. Also considered medication side effect, however this is not a new medication to the patient and she denies history of same reaction. Thought about hypoglycemia, however patient states that when she began to feel this way, someone in the office gave her a chocolate bar, which did not alleviate symptoms. She also states that she had eaten breakfast prior to her appointment, therefore I think this is less likely. Per Jill Lozano PA-C The patient readily admits that after taking her opiate, she developed nausea and dizziness. I told her these could be potential side effects. Given nausea, thought about potential intra-abdominal pathology, however she has no reported belly pain, her abdominal exam is benign, she does not have any active GI symptoms. She is asymptomatic at this time and asking to leave. I could not be anymore in agreement. We will discharge now. Screening labs were obtained and are completely normal I have independently reviewed the following tests: Labs: No leukocytosis, not anemic, no electrolyte abnormality, she is not clinically dehydrated Lab Data 04/05/24 13:58 04/05/24 13:58 Labs: Lab Results 04/05/24 Range/Units 13:58 WBC 8.8 (4.8-10.8) X10*3/uL RBC 4.79 (4.20-5.50) X10*6/uL Hgb 13.6 (12.0-16.0) g/dl Hct 41.7 (37.0-47.0) % MCV 87.1 (80.0-98.0) fL MCH 28.4 (27.0-33.0) pg MCHC 32.6 (31.0-35.0) g/dl RDW 13.2 (11.0-16.0) % Plt Count 241 (160-400) X10*3/uL MPV 10.7 (9.4-12.3) fL Immature Gran % (Auto) 0.3 (0.0-0.4) % Neut % (Auto) 85.5 H (45-73) % Lymph % (Auto) 9.6 L (20-40) % [place] % (Auto) 3.9 (2-11) % Eos % (Auto) 0.2 (0-4) % Baso % (Auto) 0.5 (0-2) % Lymph # (Auto) 0.8 L (1.2-4.9) X10*3/uL [place] # (Auto) 0.3 (0.1-1.2) X10*3/uL Eos # (Auto) 0.0 (0.0-0.4) X10*3/uL Baso # (Auto) 0.0 (0.0-0.2) X10*3/uL Abs Immat Gran (auto) 0.03 (0.00-0.03) X10*3/uL Absolute Neuts (auto) 7.5 (2.0-8.3) x10*3/uL Absolute Nucleated RBC 0.000 (0.0-0.012) X10*3/uL Nucleated RBC % (auto) 0.0 (0.0-0.2) /100WBC Sodium 141 (135-145) mmol/L Potassium 4.6 (3.3-5.1) mmol/L Chloride 105 (96-108) mmol/L Carbon Dioxide 25 (22-29) mmol/L Anion Gap 16 (12-20) BUN 16 (9-16) mg/dL Creatinine 0.71 (0.5-1.4) mg/dL Estim Creat Clear Calc 72.9 Estimated GFR > 60 Random Glucose 121 H (60-115) mg/dL Calcium 10.5 H D (8.4-10.2) mg/dL Total Bilirubin 0.8 (0.0-1.0) mg/dL AST 21 (5-31) U/L ALT 14 (0-31) U/L Alkaline Phosphatase 75 (39-117) U/L Troponin I High Sens < 2.7 (<3.5-17.0) ng/L Total Protein 7.8 (6.5-8.0) g/dL Albumin 4.4 (3.5-5.0) g/dL Discharge Plan Discharge Clinical Impression: Nausea Patient Disposition: Home, Self-Care Additional Instructions: All of your labs were normal. The opiate that you took can cause nausea and subsequent dizziness. I suspect this is what occurred. Follow up with your primary care provider as needed. Prescriptions: No Action (DME) cane Device See Rx Instructions .Route Qty: 1 0RF Rx Instructions: As directed hydroxyzine HCl 10 mg tablet 10 mg PO ONCE PRN (Reason: anxiety) 14 Days Qty: 14 1RF calcium carbonate 600 mg calcium (1,500 mg) tablet 600 mg PO DAILY ascorbate calcium (vitamin C) 500 mg tablet 500 mg PO DAILY cholecalciferol (vitamin D3) 25 mcg (1,000 unit) capsule 25 mcg PO DAILY sumatriptan succinate 25 mg tablet See Rx Instructions PO .COMPLEX Qty: 9 3RF Rx Instructions: take 1 tab at onset of headache; if no relief may repeat 1 tab after at least 2 hrs; max = 4 tabs/24 hr PO amlodipine 5 mg tablet 5 mg PO DAILY Qty: 90 1RF hydrochlorothiazide 12.5 mg tablet 12.5 mg PO DAILY 90 Days Qty: 90 1RF Interventions: ED Discharge Assessment Last Done: 04/05/24 21:52 Discharge Date/Time: 04/05/24 21:52 Print Language: Scottish
--- NOTE | 2024-04-05 12:43 | ECG_ITS ---
Test Reason : nausea Blood Pressure : / mmHG Vent. Rate : 071 BPM Atrial Rate : 071 BPM P-R Int : 160 ms QRS Dur : 080 ms QT Int : 420 ms P-R-T Axes : 061 -10 035 degrees QTc Int : 456 ms Normal sinus rhythm Possible Anterior infarct , age undetermined Abnormal ECG When compared with ECG of 25-FEB-2024 09:29, T wave inversion more evident in Anterior leads Referred By: Yodit Carrera Electronically Signed By:SUNNY REAGAN MD
[2024-04-05 14:03] LABS: MANUAL DIFF FLAG NO
[2024-04-05 14:05] LABS: Basophils Percent Auto 0.5 % (0-2); Eosinophils Percent Auto 0.2 % (0-4); Hematocrit 41.7 % (37.0-47.0); Hemoglobin 13.6 g/dl (12.0-16.0); Imm Gran Abs Auto 0.03 X10*3/uL (0.00-0.03); Imm Gran Pct Auto 0.3 % (0.0-0.4); Lymphocytes Absolute Auto 0.8 X10*3/uL (1.2-4.9); Lymphocytes Percent Auto 9.6 % (20-40); Mean Corpuscular HGB Conc 32.6 g/dl (31.0-35.0); Mean Corpuscular Hemoglobin 28.4 pg (27.0-33.0); Mean Corpuscular Volume 87.1 fL (80.0-98.0); Mean Platelet Volume 10.7 fL (9.4-12.3); Monocytes Absolute Auto 0.3 X10*3/uL (0.1-1.2); Monocytes Percent Auto 3.9 % (2-11); Neutrophils Absolute Auto 7.5 x10*3/uL (2.0-8.3); Neutrophils Percent Auto 85.5 % (45-73); Platelet Count 241 X10*3/uL (160-400); Red Blood Count 4.79 X10*6/uL (4.20-5.50); Red Cell Distribution Width 13.2 % (11.0-16.0); White Blood Count 8.8 X10*3/uL (4.8-10.8)
[2024-04-05 14:30] LABS: Alanine Aminotransferase 14 U/L (0-31); Albumin Level 4.4 g/dL (3.5-5.0); Anion Gap 16 (12-20); Aspartate Amino Transferase 21 U/L (5-31); Bilirubin Total 0.8 mg/dL (0.0-1.0); Blood Urea Nitrogen 16 mg/dL (9-16); Calcium 10.5 mg/dL (8.4-10.2); Carbon Dioxide 25 mmol/L (22-29); Chloride 105 mmol/L (96-108); Creatinine Clr Calc Pharmacy 72.9; Estimated Glomerular Filt Rate > 60; Glucose Random 121 mg/dL (60-115); Potassium 4.6 mmol/L (3.3-5.1); Sodium 141 mmol/L (135-145); Total Protein 7.8 g/dL (6.5-8.0)
[2024-04-05 14:39] LABS: Troponin-I High Sensitivity < 2.7 ng/L (<3.5-17.0)
[2024-04-05 14:46] LABS: Alkaline Phosphatase 75 U/L (39-117)
[2024-04-05 21:52] VITALS: BP 134/87; PULSE 72; RESP 18; TEMP 36.8; O2SAT 100
== END 2024-04-05 21:52 | disposition home or self-care (01) ==
PROVIDERS: Registered Nurse Emergency; Emergency Provider Emergency Medicine Emergency Medical Services; PCP Physician Assistant
DX: R11.2 Nausea with vomiting, unspecified (principal); R94.31 Abnormal electrocardiogram [ECG] [EKG]; I10 Essential (primary) hypertension; Z79.899 Other long term (current) drug therapy
CPT/HCPCS: 36415; 80053; 84484; 85025; 93005; 99283

== ENCOUNTER → 2024-04-05 12:43 | Outpatient (BNV) | payer OTHER, SELFPAY | PROVIDERS: PCP Physician Assistant; Visit Provider Internal Medicine Cardiovascular Disease | DX: R94.31 Abnormal electrocardiogram [ECG] [EKG] (principal) | CPT/HCPCS: 93010 ==

== ENCOUNTER 2024-06-21 10:58 | Outpatient (REF) | payer OTHER, SELFPAY ==
--- OUTSIDE RECORDS SUMMARY | 2024-06-21 12:37 | XMS_ITS | Data Portability ---
Author Organization [facility] Address [address] [place] [address] Care Team Providers Care Distributor Publications Name Role Phone HIM CCA OTHER Assessment Encounter Date Assessment Date Assessment LastModified by Organization Details LastModified Time 06/06/2024 06/06/2024 I provided real -time medical direction via phone for this encounter, and was available for additional phone based assistance as needed. I have reviewed and agree with the Assessment and Plan as documented by the Inspector Weights And Measures. We discussed the diagnostic uncertainty of home visits and the risk associated with this. In this case I felt this to be an acceptable and reasonable amount of risk given the benefit of avoiding an ED visit. The patient given the opportunity to ask questions. Advised if develops significant eye/lip or tongue swelling or difficulty swallowing /CP/severe SOB/turning blue/uncontrolle d n/v/d / AMS/ syncope/ hi fever to call 911- verbalized understanding of instruction [email or web address] Not available 06/06/2024 14:05:47 Plan of Treatment Reminders Order Date Submit Date Provider Last Modified By Organization Details Last Modified Time Details Appointments None recorded. Lab None recorded. Referral None recorded. Procedures None recorded. Surgeries None recorded. Imaging None recorded. Medication Orders prednisone 20 mg tablet 2024 025 [email or web address] [facility] #[id number], [address] [place], [place], [id number], 14:03:32 hydroxyzine HCl 25 mg tablet 2024 025 [facility] #[id number], [address], [place], [id number], 14:03:39 prednisone 20 mg tablet 2024 025 [facility] #00199, [address], [place], [id number], 14:03:39 hydrocortis one 1 % topical cream 2024 025 [facility] #[id number], [address], [place], [id number], 14:03:42 Patient TargetsNo targets recorded. Patient InstructionsNo instructions recorded. Reason for Referral None Reported. Medical Equipment None Reported. Allergies No known drug allergies Medications Name Sig Start Date Stop Date Status Note LastModified by Organization Details LastModified Time acetaminophen 325 mg tablet TAKE 2 TABLETS BY MOUTH EVERY 6 HOURS FOR UP TO 10 DAYS NEEDED FOR PAIN OR MILD TO MODERATE PAIN active Not Available Not Available No t Available ibuprofen 800 mg tablet TAKE 1 TABLET BY MOUTH EVERY 8 HOURS active Not Available Not Available No t Available sumatriptan 25 mg tablet active Not Available Not Available No t Available prednisone 20 mg tablet Take 2 tablets every day by oral route with meal(s) for 4 days, for rash/itch . active Not Available Not Available No t Available amlodipine 5 mg tablet TAKE 1 TABLET BY MOUTH DAILY active Not Available Not Available No t Available ketorolac 0.5 % eye drops active Not Available Not Available Not Available hydrocortisone 1 % topical cream APPLY A THIN LAYER TO THE AFFECTED AREA(S) BY TOPICAL ROUTE 2 TIMES PER DAY 2024 active Not Available Not Available Not Avai lable hydroxyzine HCl 25 mg tablet Take 1 tablet every 6 hours by oral route as needed, for itching. active Not Available Not Available No t Available hydroxyzine HCl 10 mg tablet active Not Available Not Available Not Available oxycodone 5 mg tablet TAKE 1 TABLET BY MOUTH EVERY 4 HOURS NEEDED FOR PAIN active Not Available Not Available No t Available hydrochlorothi azide 12.5 mg tablet TAKE 1 TABLET BY MOUTH DAILY active Not Available Not Available No t Available Vitals Date Recorded Body weight Respiratory rate Body height Body temperature Oxygen saturation Oxygen saturation in Arterial blood by Pulse oximetry Heart rate Systolic blood pressure Diastolic blood pressure Provider Name and Address Organization Details Last Updated DateTime 5 13355.8 g 14 /min 162.56 cm 98.1 [degF] 98 % 98 % 73 /min 137 mm[Hg] 88 mm[Hg] Not Available [facility] 12:58:41 Social History None recorded. Functional Status None recorded. Mental Status None recorded. Family History Nothing Reported. Medical History No medical history recorded. Gynecological HistoryNo gynecological history recorded. Obstetrics History GPAL:G 0 P 0 0 0 0 Past Encounters Encounter ID Performer Location Encounter Start Date Encounter Closed Date Diagnosis/Indication Diagnosis SNOMED-CT Code Diagnosis ICD10 Code Diagnosis Note [id number] Tanya Buck MD [facility] [address] [place] [phone] 06/06/2024 12:58:35 06/07/2024 10:24:19 Pruritic rash 85249742 L28.2 Advised unsure of etiology as the patient has had no known allergen exposure/p atient has a prescripti on for hydroxyzin e 10 mg to take once daily as needed for anxiety- she only has 1 pill left Advised close f/u with pcp -advised to stop hydroxyzin e 10 mg-- do not take benadryl with hydroxyzin e and will increase dose of hydroxyzin e to 25 mg every 6 hours which will have antihistam ine anti-itch properties explained to patientAdv ised to avoid rubbing her skin/watch for signs of infectionW ill do p.o. prednisone and some topical hydrocorti sone- advised: do not apply around or in the eyes or the mouth-she verbalized understand ing to the medic Health Concerns Section Related Observation LastModified by Organization Detai ls LastModified Time None Recorded Concern Status LastModified by Organization Details LastModified Time None Recorded Advance Directives Directive None Recorded Payers Encounter Date Sequence Insurance Name Policy Number Policy Pino Covered Member ID Pino Member ID Guarantor Name 06/06/2024 1 [facility] - DOS ON OR AFTER 2022 - DUAL ELIGIBLE - DETENTION OPTIONS AND ONE CARE (MEDICARE REPLACEMENT/ADV ANTAGE - HMO) Sarah Starkey [id number] Sarah Starkey Notes Date Note Type Note Provider Name and Address Organization Details Recorded Time 06/06/2024 text/html [facility] Nurse Triage Notes (Padmini Poe - RN): Reason For Request: Patient woke up with a Rash on her face, no idea where it came from. Denies: Reda ? Flash, circumferential read Read reported with black tissue to the area Open skin area after a fall with uncontrolled bleeding Abscess/infection with streaking noted, presence of fever or without Chief Complaints: Rash PMH: Hypertension, Rheumatoid Arthritis, Migraine Comments: Patient calling in to place a referral, identified via name and . Referral taken via supervisor stripping. Per patient she has a 2 day history of a rash to her face. Per patient it is itchy and looking like little pimples. She denies any face swelling, no lip or tongue swelling, no difficulty swallowing or breathing. Denies any new soaps, detergents, lotions, food, meds. etc. She has been using aloe vera with no relief. She would like to be evaluated. ..................... ..................... ..................... ..................... ..................... ..................... ............... Inspector Weights And Measures Note From Thanh Rosario: This 68-year-old female with a history including but not limited to hypertension, rheumatoid arthritis, migraines requested a visit to address an itchy rash on both of her cheeks since yesterday morning. Patient denies using any new allergens such as soaps, detergents, lotions, medications, food. Patient denies any shortness of breath or difficulty swallowing. Patient tried using aloe vera on her face yesterday which did not help. Patient denies any known medication or food allergies.Patient presents awake and alert, in no acute distress. Her vital signs are reasonably stable and she is afebrile. Nonfocal neurological exam. Normal gait. Normal oropharynx exam. Non vesicular papules on her cheeks, no erythema, no discoloration, not hot to touch. Lungs are clear throughout auscultation.I treated this patient with prednisone 40 mg.I provided education on the patient's prescriptions and the importance of primary care follow-up this week. I instructed her to present to the emergency department for any new or worsening severe symptoms such as chest pain, shortness of breath, difficulty swallowing, high fever, altered mental status or if the rash spreads to her mouth or eyes. The patient was given the opportunity to ask questions and is agreeable to this plan. ..................... ..................... ..................... ..................... ..................... ..................... ............... [facility] [place]ed: Tanya Buck ..................... ..................... ..................... ..................... ..................... ..................... ............... Disposition: Fulfilled Tanya Buck MD [address] [facility],[address], [place], [address], Tomveyi Bidamon - SazzeSAVANNAH 06/06/2024 23:02:39 OBGyn Episode No OBEpisode recorded.
--- OUTSIDE RECORDS SUMMARY | 2024-06-21 12:37 | XMS_ITS | Clinical Summary ---
Author Organization [facility] Address [address] [place] [address] Care Team Providers Care Hand Bulldozer Name Role Phone Doroteo White MD Primary Care Provider Allergies No known active allergies Medications Medication Sig Dispensed Refills Start Date End Date Status acetaminophen (TYLENOL) 325 mg tablet Take 2 Tablets by mouth every 6 hours as needed for Pain (mild to moderate pain) for up to 10 days. 03/03/2024 Active amLODIPine (NORVASC) 5 mg tablet Take 1 tablet (5 mg total) by mouth 1 (one) time each day. Active cholecalciferol (VITAMIN D-3) 25 mcg (1,000 unit) tablet Take by mouth. A ctive ascorbic acid (VITAMIN C) 500 mg chewable tablet Take by mouth. Activ e hydroCHLOROthiazide 12.5 mg tablet Take 1 tablet (12.5 mg total) by mouth 1 (one) time each day. Active oxyCODONE (ROXICODONE) 5 mg immediate release tablet Take 1 tablet (5 mg total) by mouth every 4 (four) hours if needed. 03/03/2024 Active SUMAtriptan (IMITREX) 50 mg tablet Take 1 Tablet by mouth daily as needed. May repeat dose once after 2 hours, if needed. 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 04/05/2024 9:30 AM EST Office Visit Orthopedic [place] [address] [phone] Godwin Marcano DPM Acquired hallux valgus of left foot (Primary Dx) from Last 3 Months Social History Tobacco Use Types Packs/Day Years Used Date Smoking Tobacco: Never Assessed Sex and Gender Information Value Date Recorded Sex Assigned at Not on file Gender Identity Not on file Sexual Orientation Not on file Job Start Date Occupation Industry Not on file Not on file Not on file Last Filed Vital Signs Vital Sign Reading Time Taken Comments Blood Pressure 10/0203/21/2024 7:58 AM EDT Pulse - - Temperature - - Respiratory Rate - - Oxygen Saturation - - Inhaled Oxygen Concentration - - Weight 68.5 kg (151 lb) 06/14/2024 10:58 AM EST Height 162.6 cm (5' 4.02 ) 06/14/2024 10:[address] Body Mass Index 25.91 06/14/2024 10:58 AM EST Plan of Treatment Upcoming Encounters Date Type Department Care Team (Late st Contact Info) Description 07/13/2024 3:15 PM EST Office Visit Orthopedic [place] [address] [phone] Godwin Marcano DPM [address] [place] [address] Health Maintenance Due Date Last Done Comments Breast Cancer Screening 1955 DTaP,Tdap,and Td Vaccines (1 - Tdap) 08/03/1974 Zoster Vaccines (1 of 2) 08/03/2005 Pneumococcal Vaccine: 65+ Ye ars (1 of 1 - PCV) 08/03/2020 Colorectal Cancer Screening: Colonoscopy 12/25/2023 Depression Screening 12/25/2023 Falls Risk Assessment 12/25/2023 Hepatitis C Screening 12/25/2023 Medicare Annual Wellness Visit 12/25/2023 Osteoporosis Screening (Bone Density Screening) 12/25/2023 Social Influencers of Health Screening 12/25/2023 COVID-19 Vaccine ( - 2023-2 5 season) 2024 Influenza Vaccine (#1) 2024 RSV Immunization Patients 60 + Years Old (1 - 1-dose 75+ series) 08/03/2030 HIB Vaccines Aged Out No longer eligi ble based on patient's age to complete this topic HPV Vaccines Aged Out No longer eligi ble based on patient's age to complete this topic Hepatitis A Vaccines Aged Out No long er eligible based on patient's age to complete this topic Hepatitis B Vaccines Aged Out No long er eligible based on patient's age to complete this topic IPV Vaccines Aged Out No longer eligi ble based on patient's age to complete this topic MMR Vaccines Aged Out No longer eligi ble based on patient's age to complete this topic Meningococcal ACWY Vaccine Aged Out N o longer eligible based on patient's age to complete this topic RSV Immunization Patients Un leticia 20 months Aged Out No longer eligible b ased on patient's age to complete this topic Varicella Vaccines Aged Out No longer eligible based on patient's age to complete this topic Procedures Procedure Name Priority Date/Time Associated Diagnosis Comments XR FOOT 3+ VIEWS LEFT Routine 06/14/2024 11:01 AM EST Post-operative state XR FOOT 3+ VIEWS LEFT Routine 05/02/2024 9:29 AM EST 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 Anatomical Region Laterality Modality Lower Extremities, Foot Left Computed Radiography Narrative 06/14/2024 12:20 PM EST Left foot 3 views Stable postoperative changes hardware intact out signs of failure or complication consolidation noted reduction deformity maintained nonweightbearing films Godwin Marcano DPM IMG XR PROCEDURES * ORTHO X-RAY FOOT (3 VIEWS) (03/21/2024 8:01 AM EDT) Anatomical Region Laterality Modality Radiographic Edna ging 03/21/2024 7:19 AM EDT Narrative 03/21/2024 5:56 PM EDT Left foot 3 views No fracture. No radiopaque foreign Stable post op changes hardware intact reduction deformity maintained Procedure Note Godwin Marcano DPM - 03/29/2024 Left foot 3 views No fracture. No radiopaque foreign Stable post op changes hardware intact reduction deformity maintained Godwin Marcano DPM IMG XR PROCEDURES from Last 3 Months Care Teams Hand Bulldozer Relationship Specialty Start Date End Date Doroteo White MD [address] [place] [address] Dr [address] TRACI Mccray PCP - General 08/19/23
--- OUTSIDE RECORDS SUMMARY | 2024-06-21 12:37 | XMS_ITS | Continuity of Care Document ---
Author Organization [employer] [employer] Address [address] [place] [phone] Care Team Providers Care Lock Master Name Role Phone HIM CCA OTHER Assessment Encounter Date Assessment Date Assessment LastModified by Organization Details LastModified Time 06/06/2024 06/06/2024 I provided real -time medical direction via phone for this encounter, and was available for additional phone based assistance as needed. I have reviewed and agree with the Assessment and Plan as documented by the Core Driller Helper. We discussed the diagnostic uncertainty of home [...] to call 911- verbalized understanding of instruction Not available 06/06/2024 14:05:47 Plan of Treatment Reminders Order Date Submit Date Provider Last Modified By Organization Details Last Modified Time Details Appointments None recorded. Lab None recorded. Referral None recorded. Procedures None recorded. Surgeries None recorded. Imaging None recorded. Medication Orders prednisone 20 mg tablet 2024 025 [email or web address] [facility] #[id number], [address] [place], [place], [id number], 14:03:32 hydroxyzine HCl 25 mg tablet 2024 025 [facility] #86091, [address], [place], [id number], 14:03:39 prednisone 20 mg tablet [address] [facility] #26307, [address] [place], [place], [id number], 14:03:39 hydrocortis one 1 % topical cream [address] [facility] #55514, [address] [place], [place], [id number], 14:03:42 Patient TargetsNo targets recorded. Patient InstructionsNo [...] Address Organization Details Last Updated DateTime 5 57656.8 g 14 /min 162.56 cm 98.1 [degF] [...] SNOMED-CT Code Diagnosis ICD10 Code Diagnosis Note [id number] Tanya Buck MD [facility] - [facility] [address] [place] [phone] 06/06/2024 12:58:35 06/07/2024 10:24:19 Pruritic rash [id number] L28.2 Advised unsure of etiology as the [...] by Organization Details LastModified Time None Recorded Payers Encounter Date Sequence Insurance Name Policy Number Policy Pino Covered Member ID Pino Member ID Guarantor Name 06/06/2024 1 [facility] - DOS ON OR AFTER 2022 - DUAL ELIGIBLE - DETENTION OPTIONS AND ONE CARE (MEDICARE REPLACEMENT/ADV ANTAGE - HMO) Sarah Starkey [id number] Sarah Starkey Notes Date Note Type Note Provider Name and Address Organization Details Recorded Time 06/06/2024 text/html [facility] Nurse Triage Notes (Padmini Poe - RN): Reason For Request: Patient woke up with a Rash on her face, no idea where it came from. Denies: Read ? Flash, circumferential read Read reported with black tissue to the area Open skin area after a fall with uncontrolled bleeding Abscess/infection with streaking noted, presence of fever or without Chief Complaints: Rash PMH: Hypertension, Rheumatoid Arthritis, Migraine Comments: Patient calling in to place a referral, identified via name and . Referral taken via healthcare interpreter. Per patient she has a 2 day [...] ..................... ..................... ..................... ..................... ..................... ..................... ............... Core Driller Helper Note From Thanh Rosario: This 68-year-old female [...] ..................... ..................... ..................... ..................... ..................... ..................... ............... [facility] [place] Consulted: Tanya Buck ..................... ..................... ..................... ..................... ..................... ..................... ............... Disposition: Fulfilled Tanya Buck MD [address] [place] [address],[address], [place], [address], [employer] - [employer] 06/06/2024 23:02:39 OBGyn Episode No OBEpisode recorded.
--- OUTSIDE RECORDS SUMMARY | 2024-06-21 12:38 | XMS_ITS | Encounter Summary ---
Author Organization [facility] [address] Address [address] [place] [address] Care Team Providers Care Geothermal Technician Name Role Phone Doroteo White MD Primary Care Provider Reason for Visit * Reason Comments Post-op Left foot bunion Encounter Details Date Type Department Care Team (Late st Contact Info) Description 06/14/2024 10:30 AM EST Office Visit Orthopedic Surgery [facility] [address] [phone] Godwin Marcano DPM [address] [place] [address] Acquired hallux valgus of left foot (Primary Dx); Post-operative state Social History Tobacco Use Types Packs/Day Years Used Date Smoking Tobacco: Never Assessed Sex and Gender Information Value Date Recorded Sex Assigned at Not on file Gender Identity Not on file Sexual Orientation Not on file Job Start Date Occupation Industry Not on file Not on file Not on file documented as of this encounter Last Filed Vital Signs Vital Sign Reading Time Taken Comments Blood Pressure - - Pulse - - Temperature - - Respiratory Rate - - Oxygen Saturation - - Inhaled Oxygen Concentration - - Weight 68.5 kg (151 lb) 06/14/2024 10:58 AM EST Height 162.6 cm (5' 4.02 ) 06/14/2024 10:[address] Body Mass Index 25.91 06/14/2024 10:58 AM EST documented in this encounter Progress Notes * Godwin Marcano DPM - 06/14/2024 10:30 AM EST S Patient status post surgery on 03/04/2024 left foot bunionectomy double osteotomy hammertoe correction of left second. Doing well at this time no acute complaints states she been wearing the bandagingin the boot has not gotten her foot wet despite being recommended to states overall though she is very happy at this time ROS: GENERAL: Pt denies nausea, fever, vomiting, chills, or shortness of breath. Pt in NAD. CARDIOLOGY: pt denies chest pain, palpitations LUNGS: pt denies shortness of breath MUSCULOSKELETAL: See HPI, otherwise no joint pain or swelling, back pain, or muscle pain. SKIN: see HPI, otherwise no lesions, rash or itching NEURO: No persistent headache, weakness or numbness The remainder of the review of systems is noncontributory PAST MEDICAL HISTORY: There is no problem list on file for this patient. SOCIAL HISTORY: Social History Tobacco Use Smoking status: Not on file Smokeless tobacco: Not on file Substance Use Topics Alcohol use: Not on file ACTIVE MEDICATIONS: Outpatient Medications Marked as Taking for the 06/14/24 encounter (Office Visit) with Godwin Medina DPM Medication Sig Dispense Refill acetaminophen (TYLENOL) 325 mg tablet Take 2 Tablets by mouth every 6 hours as needed for Pain (mild to moderate pain) for up to 10 days. amLODIPine (NORVASC) 5 mg tablet Take 1 tablet (5 mg total) by mouth 1 (one) time each day. ascorbic acid (VITAMIN C) 500 mg chewable tablet Take by mouth. cholecalciferol (VITAMIN D-3) 25 mcg (1,000 unit) tablet Take by mouth. hydroCHLOROthiazide 12.5 mg tablet Take 1 tablet (12.5 mg total) by mouth 1 (one) time each day. oxyCODONE (ROXICODONE) 5 mg immediate release tablet Take 1 tablet (5 mg total) by mouth every 4 (four) hours if needed. SUMAtriptan (IMITREX) 50 mg tablet Take 1 Tablet by mouth daily as needed. May repeat dose once after 2 hours, if needed. ALLERGIES: No Known Allergies PHYSICAL EXAM: Visit Vitals Ht 1.626 m (64.02 ) Wt 68.5 kg (151 lb) BMI 25.91 kg/m?? BSA 1.74 m?? PODIATRIC EXAMINATION: GENERAL: Patient appears well nourished, with NAD. VASCULAR: Dorsalis pedis pulses are 2/4 bilaterally and Posterior tibial pulses are 2/4 bilaterally. Capillary filling time within normal limits the digits. No pallor on elevation or rubor on dependency. Positive hair growth. No varicosities. Denies rest pain or claudication pain. NEUROLOGICAL: Sharp/dull sensation intact, protective sensation intact 10/10 with 5.07 semmes sujey bilaterally, vibratory sensation with tuning fork intact to the tibial tuberosity. ORTHOPEDIC: Good muscle strength 5/5 of all flexors and extensors. Dorsi flexion of ankle ,10 degrees, plantar flexion WNL. No muscle atrophy. DERMATOLOGICAL:.S skin is healed normal scar tissue formation BIOMECHANICS: Reduction of deformity of left foot maintained IMAGING: IMPRESSION: 1. Acquired hallux valgus of left foot 2. Post-operative state PLAN: Pt was seen and examined, history reviewed. Stable postoperative changes noted of the left foot Radiographs taken reviewed with patient Transition to full activity left lower extremity normal shoe gear without restriction Follow-up in 1 month Godwin Marcano DPM documented in this encounter Plan of Treatment Upcoming Encounters Date Type Department Care Team (Late st Contact Info) Description 07/13/2024 3:15 PM EST Office Visit Orthopedic Surgery - [place] [address] [phone] Godwin Marcano DPM [address] [place] [address] documented as of this encounter Results * XR Foot 3+ Views Left (06/14/2024 11:01 AM EST) Anatomical Region Laterality Modality Lower Extremities, Foot Left Computed Radiography Narrative 06/14/2024 12:20 PM EST Left foot 3 views Stable postoperative changes hardware intact out signs of failure or complication consolidation noted reduction deformity maintained nonweightbearing films Godwin Marcano DPM IMG XR PROCEDURES documented in this encounter Visit Diagnoses Diagnosis Acquired hallux valgus of left foot- Primary Post-operative state Other postprocedural status documented in this encounter Care Teams Geothermal Technician Relationship Specialty Start Date End Date Doroteo White MD [address] [place] [address] Dr [address] [place], [place] PCP - General 08/19/23 documented as of this encounter
== END 2024-06-21 10:59 | disposition home or self-care (01) ==
LOC: HO.MAMMO 10:58
PROVIDERS: PCP Physician Assistant; Visit Provider Physician Assistant
DX: Z12.31 Encounter for screening mammogram for malignant neoplasm of breast (principal)
CPT/HCPCS: 77063; 77067

== ENCOUNTER → 2024-06-21 11:30 | Outpatient (BNV) | payer OTHER, SELFPAY | PROVIDERS: PCP Physician Assistant; Visit Provider Internal Medicine | DX: Z12.31 Encounter for screening mammogram for malignant neoplasm of breast (principal) | CPT/HCPCS: 77063; 77067 ==

== ENCOUNTER 2024-08-23 11:18 | Outpatient (REF) | payer OTHER, SELFPAY ==
[2024-08-23 12:03] LABS: Hematocrit 42.1 % (37.0-47.0); Hemoglobin 13.4 g/dl (12.0-16.0); Mean Corpuscular HGB Conc 31.8 g/dl (31.0-35.0); Mean Corpuscular Hemoglobin 28.2 pg (27.0-33.0); Mean Corpuscular Volume 88.4 fL (80.0-98.0); Mean Platelet Volume 11.2 fL (9.4-12.3); Platelet Count 245 X10*3/uL (160-400); Red Blood Count 4.76 X10*6/uL (4.20-5.50); Red Cell Distribution Width 13.6 % (11.0-16.0); White Blood Count 7.4 X10*3/uL (4.8-10.8)
[2024-08-23 12:29] LABS: Alanine Aminotransferase 14 U/L (0-31); Albumin Level 4.3 g/dL (3.5-5.0); Alkaline Phosphatase 69 U/L (39-117); Anion Gap 12 (12-20); Aspartate Amino Transferase 23 U/L (5-31); Bilirubin Total 0.6 mg/dL (0.0-1.0); Blood Urea Nitrogen 17 mg/dL (9-16); Calcium 9.9 mg/dL (8.4-10.2); Carbon Dioxide 27 mmol/L (22-29); Chloride 109 mmol/L (96-108); Estimated Glomerular Filt Rate > 60; Glucose Fasting 107 mg/dL (60-99); Potassium 4.5 mmol/L (3.3-5.1); Sodium 143 mmol/L (135-145); Total Protein 7.4 g/dL (6.5-8.0)
[2024-08-23 12:57] LABS: Creatinine Urine 44.26 mg/dL; Microalbumin Urine < 5.0 mg/L
== END 2024-08-23 11:19 | disposition home or self-care (01) ==
LOC: HO.LAB 11:18
PROVIDERS: PCP Physician Assistant; Visit Provider Physician Assistant
DX: Z00.01 Encounter for general adult medical examination with abnormal findings (principal); L72.9 Follicular cyst of the skin and subcutaneous tissue, unspecified; I10 Essential (primary) hypertension; F41.1 Generalized anxiety disorder
CPT/HCPCS: 36415; 80053; 82570; 85027; 96127; 99397

== ENCOUNTER 2024-08-23 13:17 | Outpatient (AMB) | payer OTHER, SELFPAY ==
--- NOTE | 2024-08-23 13:34 | MHC.PC.OV ---
Vital Signs 08/23/24 13:47 Height 5 ft 4 in Weight 166 lb 4 oz BMI 28.5 BP 132/78 Blood Pressure Location Lt brachial Position Sitting Pulse 82 Pulse Source Pulse Oximeter Temp 97.1 F Temp Source Temporal Artery Scan Pulse Oximetry (%) 98 Oxygen Delivery Method Room Air Intake Visit Reasons: Annual Exam Tele Tech Required: No Accompanied by: Self / Same As Patient Allergies No Known Allergies Allergy (Verified 08/23/24 14:05) Medication List - Last Reconciled 08/23/24 by Fer Rai PA-C amlodipine 5 mg PO DAILY ascorbate calcium (vitamin C) 500 mg PO DAILY calcium carbonate 600 mg PO DAILY cane As directed cholecalciferol (vitamin D3) 25 mcg PO DAILY diclofenac sodium 1% 2 grams topical QID hydrochlorothiazide 12.5 mg PO DAILY 90 days hydroxyzine HCl 25 mg PO QID sumatriptan succinate take 1 tab at onset of headache; if no relief may repeat 1 tab after at least 2 hrs; max = 4 tabs/24 hr PO Tobacco use date assessed: 08/23/24 Fall risk assessment: No Falls in past year Last assessed Fall Risk: 08/23/24 Dental Screening Dental Screen Date: 08/23/24 Did you have a dental visit in the last 12 months?: Yes Did you have a dental problem in the last 6 months where you did not have access to dental care?: No Was dental information given to patient?: Patient has dentist HPI Annual Exam HPI Details Sarah is a 69-year-old female here today for routine annual physical. Patient has a past medical history significant for anxiety, migraines, nephrolithiasis, hypertension. Concern--> has developed a cystic like mass over the anterior aspect of her neck. She reports the mass started with a small pimple she tried to pop and then lead to a larger cystic like skin lesion over months. Patient underwent left foot bunionectomy in the fall of 2023. She is still recovering instill has mild swelling and pain in her left foot. 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 .. Bilateral hand arthritis and arthritic deformity: Does have positive REGLA, has seen Rheumatology in the past whom recommend continue Tylenol for arthritic pain. She is interested in getting some benefit through her insurance due to her bilateral hand arthritis. ? .. ? HTN: Report at home her BP is normal 120s to 130 systolic, today in office acceptable. Patient denies any chest pain, shortness of breath, sustain headaches. .. Anxiety: Patient does report she continues to suffer with anxiety. Has been using hydroxyzine though feels it is not as effective. She is willing to start low-dose SSRI therapy on a daily basis to help reduce her anxious symptoms. .. Osteopenia: Most recent Bone density showing oseopenia--> has been using calcium and vitamin-D supplements.? Colon cancer screening: Colonoscopy done in 2019, hyperplastic polyp repeat 10 years. CHIEF SCIENTIFIC OFFICER: Mammograms: Mammogram done Jun 2024- BI-RADS 1 Vaccines: Up-to-date with COVID vaccine, pneumonia vaccine and tetanus vaccine, considering shingles vaccine [facility] Medical History Osteoarthritis of both knees Vitamin D deficiency Essential hypertension History of fracture of humerus History of fracture of wrist Post-menopausal Fracture, radius and ulna, proximal Conjunctivitis Surgical History History of open reduction and internal fixation (ORIF) procedure History of colonoscopy History of foot surgery H/O bilateral breast reduction surgery Family History Father Diabetes Mother Diabetes Hyperlipidemia Sister Gynecologic cancer Sister Breast cancer Son Multiple sclerosis Daughter Obesity Social History Household Members: None Housing: House Alcohol intake: never Patient Tobacco Use Status: Never used Tobacco e-Cigarette/Vaping Use: Never Used Second Hand Smoke Exposure: No service: No Current occupational status: disabled Sexual orientation: Straight/Heterosexual Gender identity: Female Cognitive needs: Yes (cane) Hearing needs: No Vision needs: Yes (glasses) Questionnaire PHQ-9 Over the last 2 weeks, how often have you been bothered by any of the following problems? 1. Little interest or pleasure in doing things: several days 2. Feeling down, depressed, or hopeless: several days 3. Trouble falling or staying asleep, or sleeping too much: not at all 4. Feeling tired or having little energy: not at all 5. Poor appetite or overeating: not at all 6. Feeling bad about yourself - or that you are a failure or have let yourself or your family down: not at all 7. Trouble concentrating on things, such as reading the newspaper or watching television: not at all 8. Moving or speaking so slowly that other people could have noticed. Or the opposite - being so fidgety or restless that you have been moving around a lot more than usual: not at all 9. Thoughts that you would be better off or of hurting yourself in some way: not at all Total score: 2 Depression Screening Interpretation: Negative Depression Screening Done: Yes 18221 - PHQ-9 Billing: Yes Source: Developed by Drs. Everette Wills, Linda Foster, Jair Donovan and colleagues, with an educational sony from [employer]. Thrive Questionnaire Date Thrive assessed: 08/23/24 I am a: Patient What is your living situation today?: I have a steady place to live Within the past 12 months, did the food you bought not last and you didn't have the money to get more?: Sometimes True Within the past 12 months, did you worry whether your food would run out before you got money to buy more?: Sometimes True Do you have trouble paying for medicines?: No Do you have trouble getting transportation to medical appointments?: No Do you have trouble paying your heating and electricity bill?: No Do you have trouble taking care of your child, family member or friend?: No Do you have trouble with day-to-day activities such as bathing, preparing meals, shopping, managing finances, etc.?: No Are you currently unemployed and looking for a job?: Yes Are you interested in more education?: No Please select the resources that you would like help with: None Currently or been in a relationship where the following occur: No concerns reported THRIVE Score: 2 AUDIT C Alcohol Use Questionnaire (AUDIT-C) 1. How often do you have a drink containing alcohol?: Never 3. How often do you have six or more drinks on one occasion?: Never Total Score: 0 MARII-7 AMB Questionnaire MARII-7 Date MARII - 7 assessed: 08/23/24 Feeling nervous, anxious, or on edge: 1 = Several days Not being able to stop or control worryin = Several days Worrying too much about different things: 1 = Several days Trouble relaxin = Several days Being so restless that it is hard to sit still: 0 = Not at all Becoming easily annoyed or irritable: 0 = Not at all Feeling afraid as if something awful might happen: 0 = Not at all Total MARII-7 score (0-4 normal; 5-9 mild; 10-14 moderate; 15-21 severe): 4 Source: Developed by Drs. Everette Wills, Linda Foster, Jair Donovan and colleagues, with an educational sony from [employer]. MARII-7 Assessment Billing MARII-7 Assessment Tool: MARII-7 Assessment 58418 Review of Systems Const Denies body aches, Denies chills, Denies excessive sweating, Denies fatigue, Denies fever(s) and Denies headache(s) Eyes Denies blurry vision ENT Denies dysphagia, Denies vertigo, Denies dizziness, Denies headache(s), Denies hearing loss and Denies tinnitus Card Denies chest pain, Denies chest pain with activity, Denies syncope, Denies irregular heart rhythm and Denies dyspnea Resp Denies chest congestion, Denies cough, Denies hemoptysis, Denies dyspnea and Denies wheezing GI Denies abdominal pain, Denies melena, Denies hematochezia, Denies coffee ground emesis, Denies dysphagia, Denies diarrhea, Denies nausea and Denies vomiting Denies urinary frequency, Denies dysuria, Denies urinary hesitancy and Denies urinary urgency Musc Denies arthralgias, Denies limited range of motion, Denies muscle cramps and Denies muscle weakness Skin/Breast Denies rash and Denies skin ulcer Neuro Denies Abnormal speech present, Denies confusion, Denies vertigo, Denies dizziness, Denies syncope, Denies headache(s), Denies memory loss and Denies seizure-like activity Psych Denies anxiety, Denies confusion, Denies depression, Denies memory loss, Denies panic attacks and Denies paranoia Endo Denies excessive sweating, Denies fatigue, Denies flushing, Denies polydipsia and Denies polyuria Aller/Immun Denies wheezing Physical exam (Primary Care) Vital Signs: Last Vital Signs Temp 97.1 F 08/23/24 13:47 Pulse 82 08/23/24 13:47 BP 132/78 08/23/24 13:47 Pulse Ox 98 08/23/24 13:47 Oxygen Delivery Method Room Air 08/23/24 13:47 BMI result Body Mass Index 28.5 Tobacco/Smoking Status: Tobacco use Status Tobacco use date assessed 08/23/24 08/23/24 13:58 Patient Tobacco Use Status Never used Tobacco 08/23/24 13:34 e-Cigarette/Vaping Use Never Used 08/23/24 13:34 PHQ-9: PHQ-9 Score PHQ-9: Total score 2 08/23/24 14:08 Depression Screening Interpretation: Negative Thrive Assessment: Date of Thrive Assessment Date Thrive assessed 08/23/24 08/23/24 13:47 Currently or been in a relationship where the following occur: No concerns reported Const General: cooperative, comfortable, no acute distress, alert and awake; No confusion Orientation/consciousness: oriented to person, oriented to place, patient oriented x3 and No confusion HENMT Head: Yes normocephalic Ears: external ears normal and TM's normal bilaterally Face and sinus: No sinus tenderness Mouth: Normal oral and palatal mucosa present and tongue normal Teeth and gingiva: dentition normal and gingiva normal Throat: Yes posterior oropharynx normal, Yes tonsils normal and Yes uvula midline Eyes Conjunctivae: conjunctivae normal Sclerae: sclerae normal Pupils: Equal, round and reactive pupils present EOM: EOMs intact bilaterally Direct Ophthalmoscopy: No no photophobia Neck Other: Neck: Yes no lymphadenopathy, No tender and Yes no JVD Thyroid: Thyroid normal Carotids: no bruits Chest Chest palpation & inspection: no tenderness Resp Effort & Inspection: normal respiratory effort, no audible wheezes, not labored and no stridor Auscultation: no crackles, no rales, no rhonchi and no wheezes Cardio Jugular venous distension: no JVD Rate: regular rate, not bradycardic and not tachycardic Rhythm: regular rhythm Bruits: no carotid bruits Peripheral pulses: Peripheral pulses 2+ throughout GI Inspection: Yes normal to inspection, No abdominal wall ecchymosis and No visible herniation Palpation (GI): Soft to palpation, nontender, no guarding, not rigid and No hepatosplenomegaly present Auscultation: normoactive bowel sounds General: Yes no CVA tenderness Back/Spine/Pelvis Back: no CVA tenderness and No back tenderness Cervical Spine: cervical ROM normal Thoracic/Lumbar Spine: thoracic and lumbar spine normal to inspection, straight leg raise negative bilaterally, No thoraco-lumbar ROM limited and No lumbar spinal tenderness Skin Lesions: no lesions Rashes: no rashes Wounds: no wounds Neuro General: oriented to person, oriented to place, patient oriented x3, CN's II-XI intact bilaterally and No confusion Cranial nerves: Yes Equal, round and reactive pupils present and Yes Normal accommodation reflex present Cognition (Neuro): normal cognition Speech: No Abnormal speech present Gait exam (Neuro): Normal gait present Motor exam (neuro): 5/5 motor strength present throughout Extrem Right upper extremity: full ROM; no cyanosis Left upper extremity: full ROM; no cyanosis Right lower extremity: no edema Left lower extremity: no edema Psych Appearance: grossly normal Mental Status: mental status grossly normal Affect: normal affect Attitude: cooperative Thought process: Normal thought process present Coding Level of Care Code Est Pt Prev Care >65y(58080) Diagnoses Annual physical exam Z00.00 Cyst of subcutaneous tissue L72.9 Essential hypertension I10 MARII (generalized anxiety disorder) F41.1 Additional Codes MARII-7 Assessment Billing - MARII-7 Assessment Tool: MARII-7 Assessment 73593 ([id number]) PHQ-9 - 98675 - PHQ-9 Billing: Yes ([id number]) Assessment & Plan Assessment & Plan (1) Annual physical exam: Code(s): Z00.00 - Encounter for general adult medical examination without abnormal findings Category: Medical Plan: As per HPI (2) Cyst of subcutaneous tissue: Code(s): L72.9 - Follicular cyst of the skin and subcutaneous tissue, unspecified Category: Medical Plan: Patient has developed a cyst over her anterior neck. She would like removal. Will refer to general surgeon for removal of the cyst. PLEASE SEE PICTURE SECTION (3) Essential hypertension: Code(s): I10 - Essential (primary) hypertension Category: Medical Plan: Patient's blood pressure acceptable today in office. Will continue her current dose of antihypertensive medication with goal blood pressure to remain below 140/90 (4) MARII (generalized anxiety disorder): Code(s): F41.1 - Generalized anxiety disorder Category: Medical Plan: Patient's MARII-7 score positive for mild anxiety. She is willing to start SSRI therapy on a daily basis to help her anxious symptoms. Will follow up in 6 weeks to evaluate the effectiveness of medication. Orders: Referrals General Surgery Referral L72.9 - Follicular cyst of the skin and subcutaneous tissue, unspecified Medications: New sertraline 25 mg PO DAILY 90 tabs 1RF 90 days F41.0 - Panic disorder [episodic paroxysmal anxiety], F41.1 - Generalized anxiety disorder hydroxyzine HCl 25 mg PO BID PRN 14 tabs 1RF anxiety 7 days F41.0 - Panic disorder [episodic paroxysmal anxiety] Patient Instructions: Goal: Blood pressure to be below 140/90 Barriers: Adherence to physical activity and healthy eating habits
[2024-08-23 13:47] VITALS: BP 132/78; PULSE 82; TEMP 36.2; O2SAT 98; BMI 28.5
--- OUTSIDE RECORDS SUMMARY | 2024-08-23 16:09 | XMS_ITS | Clinical Summary ---
Author Organization [facility] Address [address] [place] [address] Care Team Providers Care Pitch Gatherer Name Role Phone Fer Rai Primary Care Provider Allergies No known active allergies Medications amLODIPine (NORVASC) 5 mg tablet Take 1 tablet (5 mg total) by mouth 1 (one) time each day. Active cholecalcifero l (VITAMIN D-3) 25 mcg (1,000 unit) tablet Take by mouth. Active ascorbic acid (VITAMIN C) 500 mg chewable tablet Take by mouth. Active hydroCHLOROthi azide 12.5 mg tablet Take 1 tablet (12.5 mg total) by mouth 1 (one) time each day. Active oxyCODONE (ROXICODONE) 5 mg immediate release tablet Take 1 tablet (5 mg total) by mouth every 4 (four) hours if needed. 03/03/20 24 Active SUMAtriptan (IMITREX) 50 mg tablet Take 1 Tablet by mouth daily as needed. May repeat dose once after 2 hours, if needed. Active diclofenac (Voltaren Arthritis Pain) 1 % topical gel Apply 2 g topically 4 (four) times a day. 150 g 1 07/28/19 25 Active acetaminophen (TYLENOL) 325 mg tablet Take 2 Tablets by mouth every 6 hours as needed for Pain (mild to moderate pain) for up to 10 days. 03/03/20 24 025 Discontinued acetaminophen (TYLENOL) 500 mg tablet Take 2 tablets (1,000 mg total) by mouth every 6 (six) hours if needed for mild pain for up to 10 days. 30 tablet 07/28/19 25 025 Encounters Date Type Department Care Team Description 07/28/2024 11:00 AM EST Consult Orthopedic [facility] [address] [facility] [address] [place] [address] Donis White PA Arthritis of hand, right 07/21/2024 3:15 PM EST Office Visit Orth[facility] [address] [phone] Godwin Mracano DPM Peripheral venous insufficiency (Primary Dx); Arthritis of left ankle; Follow-up exam 07/13/2024 3:15 PM EST Office Visit [facility] [address] [phone] Godwin Marcano DPM Acquired hallux valgus of left foot (Primary Dx); 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; Peripheral venous insufficiency; Arthritis of left ankle; Arthritis of hand, right 06/14/2024 10:30 AM EST Office Visit [facility] [address] [phone] Godwin Marcano DPM Acquired hallux valgus of left foot (Primary Dx); Post-operative state from Last 3 Months Surgical History Surgery Date Site/Laterality Comments ELBOW FRACTURE SURGERY 06/01/2020 - 05/31/2021 Left fall injury, unsure procedure Social History Tobacco Use Types Packs/Day Years Used Date Smoking Tobacco: Never Assessed Comments Unknown Sex and Gender Information Value Date Recorded Sex Assigned at Not on file Legal Sex Female 11:07 AM EDT Gender Identity Not on file Sexual Orientation Not on file Obstetrics History Last Filed Vital Signs Vital Sign Reading Time Taken Comments Blood Pressure 4 03/21/2024 7:58 AM EDT Pulse - - Temperature - - Respiratory Rate - - Oxygen Saturation - - Inhaled Oxygen Concentration - - Weight 68 kg (150 lb) 07/28/2024 10:53 AM EST Height 162.6 cm (5' 4 ) 07/28/2024 10:53 AM EST Body Mass Index 25.75 07/28/2024 10:53 AM EST Plan of Treatment Upcoming Encounters Date Type Department Care Team (Late st Contact Info) Description 08/25/2024 1:15 PM EDT Office Visit Orthopedic Surgery - [place] [address] [facility] [address] [place] [phone] Godwin Marcano, DPM [address] [facility] [address] [place] [address] 08/25/2024 1:30 PM EDT Office Visit Orthopedic Surgery - [place] 175 [facility] [address] [place] [phone] Donis White PA 175 [facility] [address] [place] [address] Health Maintenance Due Date Last Done Comments Breast Cancer Screening 1955 DTaP,Tdap,and Td Vaccines (1 - Tdap) 08/03/1974 Pneumococcal Vaccine: 50+ Ye ars (1 of 1 - PCV) 08/03/2005 Zoster Vaccines (1 of 2) 08/03/2005 Colorectal Cancer Screening: Colonoscopy 12/25/2023 Depression Screening 12/25/2023 Falls Risk Assessment 12/25/2023 Hepatitis C Screening 12/25/2023 Medicare Annual Wellness Visit 12/25/2023 Osteoporosis Screening (Bone Density Screening) 12/25/2023 Social Influencers of Health Screening 12/25/2023 COVID-19 Vaccine (1 - 2023-2 5 season) 2024 Influenza Vaccine [...] patient's age to complete this topic Meningococcal B Vacine Aged Out No lo nger eligible based on patient's age to complete this topic RSV Immunization Patients Un leticia 20 months Aged Out No longer eligible b ased on patient's age to complete this topic Varicella Vaccines Aged Out No longer eligible based on patient's age to complete this topic Procedures Procedure Name Priority Date/Time Associated Diagnosis Comments XR HAND 3+ VIEWS RIGHT Routine 07/28/2024 11:07 AM EST Arthritis of hand, right XR FOOT 3+ VIEWS LEFT Routine 07/21/2024 3:22 PM EST Follow-up exam XR FOOT 3+ VIEWS LEFT Routine 07/13/2024 2:59 PM EST 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 ?? There is mild radial subluxation of the distal phalanx of the index finger concerning for collateral ligament injury, mild diffuse osteopenia and joint space narrowing more prominent in the area of the MCP joints of the index, middle, ring, small fingers. moderate degenerative changes at the radiocarpal joints and DRUJ. ??Mild degenerative changes at the thumb CMC joint, thumb MCP joint and IP joint. ??Moderate degenerative changes at the index, middle, ring, small fingers DIP and PIP joints. ??Soft tissue shadows appear normal. ??Mild ulnar deviation of index, middle, ring, small fingers at the MCP joint. Impression: Right hand x-ray concerning for rheumatoid arthritis with osteopenia, ulnar deviation of the index, middle, ring, small fingers, and diffuse joint space narrowing at the MCP joints Donis OLIVERA IMG XR PROCEDURES Final Result * XR Foot 3+ Views Left (07/21/2024 3:22 PM EST) Only the most recent of3 resultswithin the time period is included. Anatomical Region Laterality Modality Lower Extremities, Foot Left Computed Radiography Narrative 07/21/2024 5:32 PM EST Left foot 3 views No fracture. No radiopaque foreign Stable post op changes hardware intact reduction deformity maintained us Godwin Marcano DPRosalie IMG XR PROCEDURES Final R esult from Last 3 Months Insurance [employer] Member Subscriber Plan / Payer (Ef fective 2021-Present) Name:Sarah Starkey Relation to Subscriber:Self Name:Sarah Starkey Payer ID:[id number] Group ID:[id number] Type:Not on file Address: [facility] [address] [id number] Care Teams Pitch Gatherer Relationship Specialty Start Date End Date Fer Rai PA [address] [place] [address] PCP - General Physician Technical Project Manager 07/28/24
--- OUTSIDE RECORDS SUMMARY | 2024-08-23 16:09 | XMS_ITS | Encounter Summary ---
Author Organization [facility] Address [address] [place] [address] Care Team Providers Care Production Coordinator Name Role Phone Fer Rai Primary Care Provider [phone] Reason for Visit * Reason Comments Consult Arthritis, pain * Consultation (Routine) - Closed Specialty Diagnoses / Procedures Referred By Contact Referred To Contact Orthopaedics / Orthopaedic Surgery Diagnoses Arthritis of hand, right Godwin Marcano DPM [address] [address] Phone: tel: fax: Orthopedic Surgery [facility] [address] [address] Phone: tel: fax: Referral ID Status Reason Start Date Expiration Date V isits Requested Visits Authorized [id number] Closed Specialty Services Required 07/13/2024 07/13/2025 1 1 Encounter Details Date Type Department Care Team (Late st Contact Info) Description 07/28/2024 11:00 AM EST Consult Orthopedic Surgery [facility] [address] [address] Donis White PA 175 [facility] [address] [place] [address] Arthritis of hand, right Social History Tobacco Use Types Packs/Day Years Used Date Smoking Tobacco: Never Assessed Comments Unknown Sex and Gender Information Value Date Recorded Sex Assigned at Not on file Legal Sex Female 11:07 AM EDT Gender Identity Not on file Sexual Orientation Not on file documented as of this [...] Mass Index 25.75 07/28/2024 10:53 AM EST documented in this encounter Ordered Prescriptions Prescription Sig Dispense Quantity Refills Last Filled Start Date End Date diclofenac (Voltaren Arthritis Pain) 1 % topical gel Apply 2 g topically 4 (four) times a day. 150 g 1 07/28/2024 acetaminophen (TYLENOL) 500 mg tablet Take 2 tablets (1,000 mg total) by mouth every 6 (six) hours if needed for mild pain for up to 10 days. 30 tablet 07/28/2024 documented in this encounter Progress Notes * JOSELIN Valdez - 07/28/2024 11:00 AM EST Date: July 26, 2024 Chief Complaint: Right hand pain Date of injury/duration of symptoms: 2 to 3 years HPI: Sarah Starkey is a [id number] 68 y.o. female presenting for right hand pain ongoing for about 2 to 3 years. Patient reports diffuse hand pain which is most prominent at the MCP joints of her index, middle fingers. This occurs with swelling, however she has not noticed any erythema around the MCP joints. She is also concerned about noticing her fingers ulnarly deviate over the last 2years, she feels as though this has been progressing. She reports having an injury to the right hand about 5 years ago after a fall. She denies a historyof fractures but is unsure as to the full nature of the injury. Patient does report that her index finger DIP joint becomes painful at times and appears to be slightly deviated radially as well as has some laxity. She denies remembering any other trauma to that finger particularly. In recent monthsit has been particularly more symptomatic. She has been taking some ibuprofen and meloxicam with moderate pain relief as well as topical Voltaren gel. Does admit to using some heat on her hands as well. Upon further questioning, she does report that she does also have similar pains in her MCP joints of her left hand as well as bilateral knees. She feels her left knee at times becomes swollen and redand improves over time. She feels as though she has experienced this in her right knee as well. Patient does actively see Dr. Marcano and has recent surgery in March for her hallux. No past medical history on file. No past surgical history on file. No family history on file. Social History Socioeconomic History Marital status: Spouse name: Not on file Number of children: Not on file Years of education: Not on file Highest education level: Not on file Occupational History Not on file Tobacco Use Smoking status: Not on file Smokeless tobacco: Not on file Substance and Sexual Activity Alcohol use: Not on file Drug use: Not on file Sexual activity: Not on file Other Topics Concern Not on file Social History Narrative Not on file Current Outpatient Medications: acetaminophen (TYLENOL) 325 mg tablet, Take 2 Tablets by mouth every 6 hours as needed for Pain (mild to moderate pain) for up to 10 days., Disp: , Rfl: amLODIPine (NORVASC) 5 mg tablet, Take 1 tablet (5 mg total) by mouth 1 (one) time each day., Disp:, Rfl: ascorbic acid (VITAMIN C) 500 mg chewable tablet, Take by mouth., Disp: , Rfl: cholecalciferol (VITAMIN D-3) 25 mcg (1,000 unit) tablet, Take by mouth., Disp: , Rfl: hydroCHLOROthiazide 12.5 mg tablet, Take 1 tablet (12.5 mg total) by mouth 1 (one) time each day., Disp: , Rfl: oxyCODONE (ROXICODONE) 5 mg immediate release tablet, Take 1 tablet (5 mg total) by mouth every 4 (four) hours if needed., Disp: , Rfl: SUMAtriptan (IMITREX) 50 mg tablet, Take 1 Tablet by mouth daily as needed. 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 Mild ulnar deviation of the index, middle, ring, small fingers Negative CMC grind test Negative Tinel's at carpal tunnel No thenar atrophy Focused Exam: Right Upper Extremity Skin intact Fires EPL/FPL/FDP/IO SILT M/R/U hand warm well perfused Mild tenderness palpation along the index, middle, ring MCP joints with mild swelling, no erythema Mild ulnar deviation of the index, middle, ring, small fingers Imaging/diagnostic studies: 3 view x-rays of the left hand obtained today show no acute fractures . There is mild radial subluxation of the distal phalanx of the index finger concerning for collateral ligament injury, mild diffuse osteopenia and joint space narrowing more prominent in the area of the MCP joints of the index, middle, ring, small fingers. moderate degenerative changes at the radiocarpal joints and DRUJ. Mild degenerative changes at the thumb CMC joint, thumb MCP joint and IP joint. Moderate degenerative changes at the index, middle, ring, small fingers DIP and PIP joints. Soft tissue shadows appear normal. Mild ulnar deviation of index, middle, ring, small fingers at the MCP joint. Impression: Right hand x-ray concerning for rheumatoid arthritis with osteopenia, ulnar deviation of the index,middle, ring, small fingers, and diffuse joint space narrowing at the MCP joints Medical Decision Making (base on 2 out of 3 elements): Problems Addressed: Moderate- 1 undiagnosed new problem with uncertain prognosis Tests Ordered and/or Reviewed: Low-Review of external notes: and Low-Ordering of each test: X-rays right hand done today Risk Level: Low risk Assessment: Sarah Starkey presents with left hand pain and radiographic evidence concerning for rheumatoidarthritis. Upon further questioning patient did admit she has similar diffuse hand pain at the MCP joints bilaterally as well as bilateral knee pain with occasional redness and swelling. I recommended further blood work to confirm or deny whether she may have rheumatoid arthritis. In the meantime, I recommend she continues to take her NSAIDs and Tylenol as well as topical Voltaren gel as she feels this has been helping her symptoms moderately if she does it consistently. I do also recommend applying heat to her hands. I discussed that she likely has had a collateral ligament injury at the distal phalanx of the indexfinger creating slight subluxation at that joint. I discussed that this may cause a predictable pattern of wear on the joint space. Because she does not recommend recent injury or trauma to that finger, I suspect that this is chronic. I did discuss the possibility for surgical options down the linehowever feel it is necessary to further confirm or deny a diagnosis of possible rheumatoid arthritis at this time. Patient is understanding of her treatment options. She is agreeable to getting her labs drawn. I discussed that I will call her with the results and we will follow-up in 4 weeks. In the event that her labs are positive I recommend she follows up with primary care for further referral to rheumatology. If negative, we will work to manage her symptoms accordingly. All other questions were answered at this time Plan: Possible rheumatoid arthritis -Further evaluation with blood work CBC, REGLA, CRP, ESR, RF, anti-CCP, uric acid -Continue NSAIDs and Tylenol and topical Voltaren gel Collateral ligament injury of the right small index finger DIP joint -Continue observation Follow-up in 4 weeks or for any new or worsening symptoms sooner. Donis White PA-C documented in this encounter Plan of Treatment Upcoming Encounters Date Type Department Care Team (Late st Contact Info) Description 08/25/2024 1:15 PM EDT Office Visit Orthopedic Surgery [facility] [address] [phone] Godwin Marcano DPM [address] [address] 08/25/2024 1:30 PM EDT Office Visit Orthopedic Surgery [facility] 175 [facility] [address] [place] [phone] Donis White PA 175 [facility] [address] [place] [address] Scheduled Orders Name Type Priority Associated Diagnoses Orde r Schedule C-reactive protein Lab Routine Arthritis of hand, right 1 Occurrences starting 07/28/2024 until 07/28/2025 Rheumatoid factor Lab Routine Arthritis of hand, right 1 Occurrences starting 07/28/2024 until 07/28/2025 Sedimentation rate Lab Routine Arthritis of hand, right 1 Occurrences starting 07/28/2024 until 07/28/2025 CBC and differential Lab Routine Arthritis of hand, right 1 Occurrences starting 07/28/2024 until 07/28/2025 Uric acid Lab Routine Arthritis of hand, right 1 Occurrences starting 07/28/2024 until 07/28/2025 Cyclic citrullinated peptide, IgG and IgA Lab Routine Arthritis of hand, right 1 Occurrences starting 07/28/2024 until 07/28/2025 Antinuclear antibodies Lab Routine Arthritis of hand, right 1 Occurrences starting 07/28/2024 until 07/28/2025 documented as of this encounter Results * XR Hand 3+ Views Right [...] narrowing at the MCP joints Donis OLIVERA IMCally XR PROCEDURES Final Result documented in this encounter Visit Diagnoses Diagnosis Arthritis of hand, right documented in this encounter Discontinued Medications Medication Sig Discontinue Reason Start Date End Da te acetaminophen (TYLENOL) 325 mg tablet Take 2 Tablets by mouth every 6 hours as needed for Pain (mild to moderate pain) for up to 10 days. 03/03/2024 07/28/2024 documented as of this encounter Orders Outpatient Referral Count Last Ordered Date Fir st Ordered Date AMB REFERRAL TO ORTHOPEDIC SURGERY 1 2024 documented in this encounter Care Teams Production Coordinator Relationship Specialty Start Date End Date Fer Rai PA [address] [place] [address] PCP - General Physician Fundraising Coordinator 07/28/24 documented as of this encounter
== END 2024-08-23 14:26 | disposition home or self-care (01) ==
LOC: HO.HMCH 13:18
PROVIDERS: PCP Physician Assistant; Visit Provider Physician Assistant
DX: Z00.00 Encounter for general adult medical examination without abnormal findings (principal); L72.9 Follicular cyst of the skin and subcutaneous tissue, unspecified; I10 Essential (primary) hypertension; F41.1 Generalized anxiety disorder

== ENCOUNTER 2024-09-15 12:37 | Outpatient (AMB) | payer OTHER, SELFPAY ==
--- NOTE | 2024-09-15 12:40 | MHC.OFFVIS ---
Vital Signs 09/15/24 12:52 Height 5 ft 4 in Weight 165 lb 4 oz BMI 28.4 BP 160/79 H Blood Pressure Location Lt brachial Position Sitting Pulse 82 Intake Visit Reasons: Follicular cyst of the skin Intake Note: Patient referred by pcp Fer Rai PA-C for cyst on ant neck. Patient c/o: onset few months, tried squeezing it and it became bigger, looked like a pimple, some pus came out, per pt feels smaller today, denies pain Hyperion Analyst Required: Yes Hyperion Analyst Language: Welsh Accompanied by: Self / Same As Patient Allergies No Known Allergies Allergy (Verified 08/23/24 14:05) Medication List - Last Reconciled 09/15/24 by Bryce Linares MD amlodipine 5 mg PO DAILY ascorbate calcium (vitamin C) 500 mg PO DAILY calcium carbonate 600 mg PO DAILY cane As directed cholecalciferol (vitamin D3) 25 mcg PO DAILY diclofenac sodium 1% 2 grams topical QID hydrochlorothiazide 12.5 mg PO DAILY 90 days hydroxyzine HCl 25 mg PO BID PRN 7 days sertraline 25 mg PO DAILY 90 days sumatriptan succinate take 1 tab at onset of headache; if no relief may repeat 1 tab after at least 2 hrs; max = 4 tabs/24 hr PO HPI HPI Follicular cyst of the skin: Details: [age] year old female referred for a cyst of the skin. She has this lump on the anterior part of her neck he was noticed for about a year now. She says that this swells up periodically and becomes tender. She says that sometimes this has drained as well. She denies any history of trauma or an insect bite to the area. [facility] Medical History (Updated 09/15/24 @ 12:53 by Bryce Linares MD) Epidermal cyst of neck Osteoarthritis of both knees Vitamin D deficiency Essential hypertension History of fracture of humerus History of fracture of wrist Post-menopausal Fracture, radius and ulna, proximal Conjunctivitis Surgical History History of open reduction and internal fixation (ORIF) procedure History of colonoscopy History of foot surgery H/O bilateral breast reduction surgery Family History Father Diabetes Mother Diabetes Hyperlipidemia Sister Gynecologic cancer Sister Breast cancer Son Multiple sclerosis Daughter Obesity Social History Household Members: None Housing: House Alcohol intake: never Patient Tobacco Use Status: Never used Tobacco e-Cigarette/Vaping Use: Never Used Second Hand Smoke Exposure: No service: No Current occupational status: disabled Sexual orientation: Straight/Heterosexual Gender identity: Female Cognitive needs: Yes (cane) Hearing needs: No Vision needs: Yes (glasses) Review of Systems Const Denies chills and Denies fever(s) Card Denies chest pain, Denies dyspnea and Denies dyspnea on exertion Resp Denies cough, Denies dyspnea and Denies dyspnea on exertion GI Denies hematochezia and Denies change in bowel habits Denies hematuria Musc Reports back pain, Reports arthralgias and Denies limited range of motion Neuro Denies focal weakness and Denies convulsions Psych Denies depression and Denies mood swings Physical Exam Const General: comfortable and no acute distress Orientation/consciousness: patient oriented x3 Neck Other: Cystic induration about 1.3 cm on the anterior neck, well-defined Neck: Yes no lymphadenopathy Resp Auscultation: clear to auscultation bilaterally Cardio Rhythm: regular rhythm GI Palpation (GI): Soft to palpation, nontender and no guarding Neuro General: patient oriented x3 Assessment & Plan Assessment & Plan (1) Epidermal cyst of neck: Code(s): L72.0 - Epidermal cyst Category: Medical Plan I explained the technique of excision under local anesthesia. I reviewed the risks including but not limited to bleeding and infections, as well as the benefits and alternatives. She understands and wants to proceed. This will be done in the office on her next visit. Coding Level of Care Code New Pt Level 3 (98725) Diagnoses Epidermal cyst of neck L72.0
[2024-09-15 12:52] VITALS: BP 160/79; PULSE 82; BMI 28.4
--- OUTSIDE RECORDS SUMMARY | 2024-09-15 15:25 | XMS_ITS | Clinical Summary ---
Author Organization [facility] Address [address] [place] [address] Care Team Providers Care Piercer Name Role Phone Fer Rai Primary Care Provider [phone] Allergies No known active allergies Medications amLODIPine (NORVASC) 5 mg tablet Take 1 tablet (5 mg total) by mouth 1 (one) time each day. Active cholecalciferol (VITAMIN D-3) 25 mcg (1,000 unit) tablet Take by mouth. Ac tive ascorbic acid (VITAMIN C) 500 mg chewable tablet Take by mouth. Activ e hydroCHLOROthia zide 12.5 mg tablet Take 1 tablet (12.5 mg total) by mouth 1 (one) time each day. Active oxyCODONE (ROXICODONE) 5 mg immediate release tablet Take 1 tablet (5 mg total) by mouth every 4 (four) hours if needed. Active SUMAtriptan (IMITREX) 50 mg tablet Take 1 Tablet by mouth daily as needed. May repeat dose once after 2 hours, if needed. Active diclofenac (Voltaren Arthritis Pain) 1 % topical gel Apply 2 g topically 4 (four) times a day. 150 g 1 5 Active Encounters Date Type Department Care Team Description 08/25/2024 1:15 PM EDT Office Visit Orthopedic Surgery - [place] [address] [place] [address] [place] [phone] Godwin Marcano DPM Arthritis of left ankle (Primary Dx); Follow-up exam 07/28/2024 11:00 AM EST Consult Orthopedic Surgery [facility] 175 [facility] [address] [place] [phone] Donis White PA Arthritis of hand, right 07/21/2024 3:15 PM EST Office Visit Orthopedic [facility] 250 175 [facility] [address] [place] [phone] Godwin Marcano DPM Peripheral venous insufficiency (Primary Dx); Arthritis of left ankle; Follow-up exam 07/13/2024 3:15 PM EST Office Visit Orthopedic [facility] [address] [phone] Godwin Marcano DPM Acquired hallux valgus of left foot (Primary Dx); 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; Peripheral venous insufficiency; Arthritis of left ankle; Arthritis of hand, right from Last 3 Months Surgical History Surgery [...] Sign Reading Time Taken Comments Blood Pressure 5/4 03/21/2024 7:58 AM EDT Pulse - - Temperature - - Respiratory Rate - - Oxygen Saturation - - Inhaled Oxygen Concentration - - Weight 68 kg (150 lb) 08/25/2024 1:01 PM EDT Height 162.6 cm (5' 4.02 ) 08/25/2024 1:01 PM ED T Body Mass Index 25.73 08/25/2024 1:01 PM EDT Plan of Treatment Health Maintenance Due Date Last Done Comments [...] - 2023-2 5 season) 2024 Influenza Vaccine (Season Ended) 2025 RSV Immunization Adult Patie nts (1 - 1-dose 75+ series) 08/03/2030 HIB [...] age to complete this topic Meningococcal B Vaccine Aged Out No l onger eligible based on patient's age to complete this topic RSV Immunization Patients Un leticia 20 months Aged Out No longer eligible b ased on patient's age to complete this topic Varicella Vaccines Aged Out No longer eligible based on patient's age to complete this topic Procedures Procedure Name Priority Date/Time Associated Diagnosis Comments XR FOOT 3+ VIEWS LEFT Routine 08/25/2024 1:00 PM EDT Follow-up exam XR HAND 3+ VIEWS RIGHT Routine 07/28/2024 11:07 AM EST Arthritis of hand, right XR FOOT 3+ VIEWS LEFT Routine 07/21/2024 3:22 PM EST Follow-up exam XR FOOT 3+ VIEWS LEFT Routine 07/13/2024 2:59 PM EST 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 Anatomical Region Laterality Modality Lower Extremities, Foot Left Computed Radiography Narrative 08/25/2024 7:39 PM EDT Left foot 3 views Stable post op changes hardware intact reduction deformity maintained Godwin Marcano DPM IMG XR PROCEDURES Final R esult * XR Hand 3+ Views Right (07/28/2024 [...] Donis OLIVERA IMG XR PROCEDURES Final Result from Last 3 Months Insurance [facility] MEDIC[facility] Member Subscriber Plan / Payer (Ef fective 2021-Present) Name:Sarah Starkey Relation to Subscriber:Self Name:Sarah Starkey Payer ID:[id number] Group ID:[id number] Type:Not on file Address: [facility] [address] [address] Care Teams Piercer Relationship Specialty Start Date End Date Fer Rai PA PCP - General Physician Card Folder 07/28/24
--- OUTSIDE RECORDS SUMMARY | 2024-09-15 15:25 | XMS_ITS | Data Portability ---
Author Organization [employer] [facility] Address [address] [place] [address] Care Team Providers Care Bellows Assembler Name Role Phone HIM CCA OTHER Assessment Encounter Date Assessment Date Assessment LastModified by Organization Details LastModified Time 06/06/2024 06/06/2024 I provided real -time medical direction via phone for this encounter, and was available for additional phone based assistance as needed. I have reviewed and agree with the Assessment and Plan as documented by the Stationary Engineer. We discussed the diagnostic uncertainty of home [...] to call 911- verbalized understanding of instruction [email or web address] Not available 06/06/2024 14:05:47 Plan of Treatment Reminders Order Date Submit Date Provider Last Modified By Organization Details Last Modified Time Details Appointments None recorded. Lab None recorded. Referral None recorded. Procedures None recorded. Surgeries None recorded. Imaging None recorded. Medication Orders prednisone 20 mg tablet 2024 025 [email or web address] [employer] #[id number], [address] [place], [place], [id number], 14:03:32 hydroxyzine HCl 25 mg tablet 2024 025 [employer] #[id number], [address] [place], [place], [id number], 14:03:39 prednisone 20 mg tablet 2024 025 [facility] #[id number], [address] [place], [place], [id number], 14:03:39 hydrocortis one 1 % topical cream 2024 025 [facility] #[id number], [address] [place], [place], [id number], 14:03:42 Patient TargetsNo targets recorded. Patient InstructionsNo [...] Address Organization Details Last Updated DateTime 5 86341.8 g 14 /min 162.56 cm 98.1 [degF] [...] SNOMED-CT Code Diagnosis ICD10 Code Diagnosis Note [id number] Tanya Buck MD Main - [facility] [address] [place] [phone] 06/06/2024 12:58:35 06/07/2024 10:24:19 Pruritic rash [id number] L28.2 Advised unsure of etiology as the [...] Pino Member ID Guarantor Name 06/06/2024 1 [facility] [employer] - DOS ON OR AFTER 2022 - DUAL ELIGIBLE - CUSTODIAL OPTIONS AND ONE CARE (MEDICARE REPLACEMENT/ADV ANTAGE - HMO) Sarah Starkey [id number] Sarah Starkey Notes Date Note Type Note [...] via name and . Referral taken via wire frame maker. Per patient she has a 2 day [...] ..................... ..................... ..................... ..................... ..................... ..................... ............... Stationary Engineer Note From Thanh Rosario: This 68-year-old female [...] ..................... ..................... ..................... ..................... ..................... ..................... ............... [facility] [place]: Tanya Buck ..................... ..................... ..................... ..................... ..................... ..................... ............... Disposition: Fulfilled Tanya Buck MD [address] [facility], [place], [address], [employer] 06/06/2024 23:02:39 OBGyn Episode No OBEpisode recorded.
== END 2024-09-15 13:02 | disposition home or self-care (01) ==
LOC: HO.HGS 12:38
PROVIDERS: PCP Physician Assistant; Visit Provider Surgery
DX: L72.0 Epidermal cyst (principal)
CPT/HCPCS: 99203

== ENCOUNTER → 2024-09-15 12:37 | Outpatient (BNVA) | payer OTHER, SELFPAY | PROVIDERS: PCP Physician Assistant; Visit Provider Surgery | DX: L72.0 Epidermal cyst (principal) | CPT/HCPCS: 99202 ==

== ENCOUNTER 2024-10-06 10:00 | Outpatient (REF) | payer OTHER, SELFPAY ==
--- OUTSIDE RECORDS SUMMARY | 2024-10-06 12:00 | XMS_ITS | Clinical Summary ---
Author Organization [facility] Address [address] [place] [address] Care Team Providers Care Collection Systems Technician Name Role Phone Fer Rai Primary Care [...] PM EDT Office Visit Orthopedic Surgery - [place] [address] [place] [address] [place] [phone] Godwin Marcano DPM Arthritis of left ankle (Primary Dx); Follow-up exam 07/28/2024 11:00 AM EST Consult Orthopedic Surgery [facility] [address] [facility] [address] [place] [phone] Donis White PA Arthritis of hand, right 07/21/2024 3:15 PM EST Office Visit Orthopedic [facility] [address] [facility] [address] [place] [phone] Godwin Marcano DPM Peripheral venous insufficiency (Primary Dx); Arthritis of left ankle; Follow-up exam 07/13/2024 3:15 PM EST Office Visit Orthopedic [facility] [address] [phone] Godwin Marcano DPM Acquired hallux valgus of [...] Final Result from Last 3 Months Insurance [facility] MEDICARE Member Subscriber Plan / Payer (Ef fective 2021-Present) Name:Sarah Starkey Relation to Subscriber:Self Name:Sarah Starkey Payer ID:[id number] Group ID:[id number] Type:Not on file Address: [facility] [address] [phone] Care Teams Collection Systems Technician Relationship Specialty Start Date End Date Fer Rai PA PCP - General Physician Farm Owner Operator 07/28/24
== END 2024-10-06 10:01 | disposition home or self-care (01) ==
LOC: HO.LNP 10:00
PROVIDERS: PCP Physician Assistant; Visit Provider Surgery
DX: L72.0 Epidermal cyst (principal); F41.1 Generalized anxiety disorder; R68.2 Dry mouth, unspecified; R42 Dizziness and giddiness; T43.225A Adverse effect of selective serotonin reuptake inhibitors, initial encounter; Z13.30 Encounter for screening examination for mental health and behavioral disorders, unspecified
CPT/HCPCS: 11422; 88304; 99212

== ENCOUNTER 2024-10-06 10:00 | Outpatient (AMB) | payer OTHER, SELFPAY ==
--- NOTE | 2024-10-06 10:11 | MHC.OFFVIS ---
Vital Signs 10/06/24 10:23 Height 5 ft 4 in Weight 166 lb BMI 28.5 BP 135/67 Blood Pressure Location Rt brachial Position Sitting Pulse 85 Intake Visit Reasons: Excision follicular cyst of the skin Intake Note: Patient here for excision of cyst on anterior neck. Rock Wool Insulator Required: No Accompanied by: Self / Same As Patient Allergies No Known Allergies Allergy (Verified 10/06/24 10:22) HPI HPI Excision follicular cyst of the skin: Details: She is here for excision of a cyst on the anterior neck. [facility] Medical History (Updated 09/15/24 @ 12:53 by Bryce Linares MD) Epidermal cyst of neck Osteoarthritis of both knees Vitamin D deficiency Essential hypertension History of fracture of humerus History of fracture of wrist Post-menopausal Fracture, radius and ulna, proximal Conjunctivitis Surgical History History of open reduction and internal fixation (ORIF) procedure History of colonoscopy History of foot surgery H/O bilateral breast reduction surgery Family History Father Diabetes Mother Diabetes Hyperlipidemia Sister Gynecologic cancer Sister Breast cancer Son Multiple sclerosis Daughter Obesity Social History Household Members: None Housing: House Alcohol intake: never Patient Tobacco Use Status: Never used Tobacco e-Cigarette/Vaping Use: Never Used Second Hand Smoke Exposure: No service: No Current occupational status: disabled Sexual orientation: Straight/Heterosexual Gender identity: Female Cognitive needs: Yes (cane) Hearing needs: No Vision needs: Yes (glasses) Office Procedures Excision Details: She was placed in a reclining position. The area of the cyst on the anterior neck was prepped and draped. Lidocaine 1% was used for local anesthesia. I made an elliptical incision on the skin surrounding this cystic induration with a blade 15. This was carried down through the full-thickness of the skin and subcutaneous fat to excise this entire indurated area. This measured about 2 cm in widest dimension. This was sent as a specimen. I closed the incision with full-thickness nylon 3-0 simple interrupted sutures. Dressings were applied. The procedure was completed. She tolerated procedure well. There were no immediate complications. 06169-Nyhbnyeo scalp/neck/hands/feet/genitalia 1.1cm-2cm Procedure code (CPT) selection complete Assessment & Plan Assessment & Plan (1) Epidermal cyst of neck: Code(s): L72.0 - Epidermal cyst Category: Medical Plan: Excision was done under local anesthesia. She tolerated procedure well. She was given wound care instructions. She will be seen in the office for removal sutures in about 2 weeks. Coding Level of Care Code Procedure Only Diagnoses Epidermal cyst of neck L72.0 CPT Codes Scalp/Neck/Hands/Feet/Genetalia - CPT: 29268-Cobxhgym scalp/neck/hands/feet/genitalia 1.1cm-2cm ([id number])
[2024-10-06 10:23] VITALS: BP 135/67; PULSE 85; BMI 28.5
--- OUTSIDE RECORDS SUMMARY | 2024-10-06 11:06 | XMS_ITS | Data Portability ---
Author Organization [employer] [facility] Address [address] [place] [address] Care Team Providers Care Rn Chronic Name Role Phone HIM CCA OTHER Assessment Encounter Date Assessment Date Assessment LastModified by Organization Details LastModified Time 06/06/2024 06/06/2024 I provided real -time medical direction via phone for this encounter, and was available for additional phone based assistance as needed. I have reviewed and agree with the Assessment and Plan as documented by the Tonal Regulator. We discussed the diagnostic uncertainty of home [...] to call 911- verbalized understanding of instruction [email or web address] Not available 06/06/2024 14:05:47 Plan of Treatment Reminders Order Date Submit Date Provider Last Modified By Organization Details Last Modified Time Details Appointments None recorded. Lab None recorded. Referral None recorded. Procedures None recorded. Surgeries None recorded. Imaging None recorded. Medication Orders prednisone 20 mg tablet 2024 025 [email or web address] #[id number], [address] [place], [place], [id number], 14:03:32 hydroxyzine HCl 25 mg tablet 2024 025 [employer] [facility] #27003, [address] [place], [place], [id number], 14:03:39 prednisone 20 mg tablet 2024 025 [facility] #[id number], [address], [place], [id number], 14:03:39 hydrocortis one 1 % topical cream 2024 025 [facility] #[id number], [address], [place], [id number], 14:03:42 Patient TargetsNo targets recorded. Patient InstructionsNo [...] Address Organization Details Last Updated DateTime 5 95552.8 g 14 /min 162.56 cm 98.1 [degF] [...] SNOMED-CT Code Diagnosis ICD10 Code Diagnosis Note [id number] Tanya Buck MD [facility] [address] [place] [phone] 06/06/2024 12:58:35 06/07/2024 10:24:19 Pruritic rash [id number] L28.2 Advised unsure of etiology as the [...] Recorded Advance Directives Directive None Recorded Payers Insurance Date Sequence Insurance Name Policy Number Policy Pino Covered Member ID Pino Member ID Guarantor Name 06/06/2024 1 [facility] [employer] - DOS ON OR AFTER 2022 - DUAL ELIGIBLE - LONG TERM OPTIONS AND ONE CARE (MEDICARE REPLACEMENT/ADV ANTAGE - HMO) Sarah Starkey [id number] Sarah Starkey Notes Date Note Type Note [...] via name and . Referral taken via manager search. Per patient she has a 2 day [...] ..................... ..................... ..................... ..................... ..................... ..................... ............... Tonal Regulator Note From Thanh Rosario: This 68-year-old female [...] ..................... ..................... ..................... ..................... ..................... ..................... ............... [facility] [place]: Tanya Buck ..................... ..................... ..................... ..................... ..................... ..................... ............... Disposition: Fulfilled Tanya Buck MD [address] [facility],[address], [place], [address], [place] [facility] [employer] 06/06/2024 23:02:39 OBGyn Episode No OBEpisode recorded.
--- OUTSIDE RECORDS SUMMARY | 2024-10-06 11:06 | XMS_ITS | Clinical Summary ---
Author Organization [facility] Address [address] [place] [address] Care Team Providers Care Boiler Blower Name Role Phone Fer Rai Primary Care Provider [phone] Allergies No known active allergies Medications amLODIPine [...] PM EDT Office Visit Orthopedic Surgery - [place] [address] [place] [address] [place] [phone] Godwin Marcano DPM Arthritis of left ankle (Primary Dx); Follow-up exam 07/28/2024 11:00 AM EST Consult Orthopedic Surgery [facility] [address] [facility] [address] [place] [phone] Donis White PA Arthritis of hand, right 07/21/2024 3:15 PM EST Office Visit Orthopedic [facility] [address] [facility] [address] [place] [phone] Godwin Marcano DPM Peripheral venous insufficiency (Primary Dx); Arthritis of left ankle; Follow-up exam 07/13/2024 3:15 PM EST Office Visit Orthopedic [facility] [address] [phone] Godwin Marcano DPM Acquired hallux valgus of [...] Final Result from Last 3 Months Insurance [facility] MEDICARE Member Subscriber Plan / Payer (Ef fective 2021-Present) Name:Sarah Starkey Relation to Subscriber:Self Name:Sarah Starkey Payer ID:[id number] Group ID:[id number] Type:Not on file Address: [facility] [address] [phone] Care Teams Boiler Blower Relationship Specialty Start Date End Date Fer Rai PA PCP - General Physician Realty Specialist 07/28/24
== END 2024-10-06 10:35 | disposition home or self-care (01) ==
LOC: HO.HGS 10:02
PROVIDERS: PCP Physician Assistant; Visit Provider Surgery
DX: L72.0 Epidermal cyst (principal)
CPT/HCPCS: 11422

== ENCOUNTER 2024-10-06 10:44 | Outpatient (AMB) | payer OTHER, SELFPAY ==
--- NOTE | 2024-10-06 10:48 | MHC.PC.OV ---
Vital Signs 10/06/24 10:53 Height 5 ft 4 in Weight 164 lb 6 oz BMI 28.2 BP 110/78 Blood Pressure Location Lt brachial Position Sitting Pulse 89 Pulse Source Pulse Oximeter Temp 97.1 F Temp Source Temporal Artery Scan Pulse Oximetry (%) 97 Oxygen Delivery Method Room Air Intake Visit Reasons: f/u new anxiety med Benefits Assistant Required: No Accompanied by: Self / Same As Patient Allergies sertraline Adverse Reaction (Intermediate, Verified 10/06/24 11:10) chest pain Medication List - Last Reconciled 10/06/24 by Fer Rai PA-C amlodipine 5 mg PO DAILY amlodipine 5 mg PO DAILY ascorbate calcium (vitamin C) 500 mg PO DAILY calcium carbonate 600 mg PO DAILY cane As directed cholecalciferol (vitamin D3) 25 mcg PO DAILY diclofenac sodium 1% 2 grams topical QID hydrochlorothiazide 12.5 mg PO DAILY 90 days hydroxyzine HCl 25 mg PO BID PRN 7 days sertraline 25 mg PO DAILY 90 days sumatriptan succinate take 1 tab at onset of headache; if no relief may repeat 1 tab after at least 2 hrs; max = 4 tabs/24 hr PO Tobacco use date assessed: 08/23/24 Fall risk assessment: No Falls in past year Last assessed Fall Risk: 10/06/24 Dental Screening Dental Screen Date: 08/23/24 HPI f/u new anxiety med HPI Details Patient is a 69-year-old female here today for a 4 week follow-up. She was prescribed sertraline 25 mg to alleviate anxiety symptoms but experienced side effects, including dry mouth and lightheadedness. Due to these adverse reactions, she discontinued the medication and is seeking alternative treatments. She does report hydroxyzine helpful for anxiety as needed and would like to continue this medication. She is interested in trying an alternative SSRI to help her with her overall anxiety as well. PLAN: Will try fluoxetine 10 mg capsules [facility] Medical History Epidermal cyst of neck Osteoarthritis of both knees Vitamin D deficiency Essential hypertension History of fracture of humerus History of fracture of wrist Post-menopausal Fracture, radius and ulna, proximal Conjunctivitis Surgical History History of open reduction and internal fixation (ORIF) procedure History of colonoscopy History of foot surgery H/O bilateral breast reduction surgery Family History Father Diabetes Mother Diabetes Hyperlipidemia Sister Gynecologic cancer Sister Breast cancer Son Multiple sclerosis Daughter Obesity Social History Household Members: None Housing: House Alcohol intake: never Patient Tobacco Use Status: Never used Tobacco e-Cigarette/Vaping Use: Never Used Second Hand Smoke Exposure: No service: No Current occupational status: disabled Sexual orientation: Straight/Heterosexual Gender identity: Female Cognitive needs: Yes (cane) Hearing needs: No Vision needs: Yes (glasses) Questionnaire Thrive Questionnaire Date Thrive assessed: 08/23/24 I am a: Patient What is your living situation today?: I have a steady place to live Within the past 12 months, did the food you bought not last and you didn't have the money to get more?: Sometimes True Within the past 12 months, did you worry whether your food would run out before you got money to buy more?: Sometimes True Do you have trouble paying for medicines?: No Do you have trouble getting transportation to medical appointments?: No Do you have trouble paying your heating and electricity bill?: No Do you have trouble taking care of your child, family member or friend?: No Do you have trouble with day-to-day activities such as bathing, preparing meals, shopping, managing finances, etc.?: No Are you currently unemployed and looking for a job?: Yes Are you interested in more education?: No Please select the resources that you would like help with: None Currently or been in a relationship where the following occur: No concerns reported THRIVE Score: 2 MARII-7 AMB Questionnaire MARII-7 Date MARII - 7 assessed: 08/23/24 Source: Developed by Drs. Everette Wills, Linda Foster, Jair Donovan and colleagues, with an educational sony from [employer]. Review of Systems Const Denies headache(s) Eyes Denies loss of vision ENT Denies vertigo, Denies dizziness, Denies headache(s) and Denies sore throat Card Denies chest pain, Denies leg edema and Denies lightheadedness Resp Denies cough, Denies hemoptysis and Denies wheezing GI Denies abdominal pain, Denies melena, Denies constipation, Denies diarrhea and Denies vomiting Denies urinary frequency, Denies dysuria and Denies urinary urgency Musc Denies arthralgias, Denies joint swelling, Denies numbness and Denies tingling Neuro Denies Abnormal speech present, Denies behavioral changes, Denies vertigo, Denies dizziness, Denies headache(s), Denies loss of vision, Denies memory loss, Denies numbness and Denies tingling Psych Denies anxiety, Denies behavioral changes, Denies depression, Denies memory loss and Denies panic attacks Dom/Lymph Denies easy bleeding and Denies easy bruising Aller/Immun Denies wheezing Physical exam (Primary Care) Vital Signs: Last Vital Signs Temp 97.1 F 10/06/24 10:53 Pulse 89 10/06/24 10:53 BP 110/78 10/06/24 10:53 Pulse Ox 97 10/06/24 10:53 Oxygen Delivery Method Room Air 10/06/24 10:53 BMI result Body Mass Index 28.2 Tobacco/Smoking Status: Tobacco use Status Tobacco use date assessed 08/23/24 10/06/24 10:48 Patient Tobacco Use Status Never used Tobacco 10/06/24 10:48 e-Cigarette/Vaping Use Never Used 10/06/24 10:48 Thrive Assessment: Date of Thrive Assessment Date Thrive assessed 08/23/24 10/06/24 10:48 Currently or been in a relationship where the following occur: No concerns reported Const General: healthy appearing, no acute distress, alert and awake Nutritional Appearance: well nourished Orientation/consciousness: oriented to person, oriented to place and oriented to time [facility] Ears: TM's normal bilaterally General nose exam: Normal nasal mucous membranes and turbinates present Eyes Conjunctivae: conjunctivae normal Sclerae: sclerae normal Pupils: Equal, round and reactive pupils present Neck Neck: Yes no lymphadenopathy and Yes no JVD Thyroid: Thyroid normal Carotids: no bruits Resp Effort & Inspection: normal respiratory effort and not tachypneic Auscultation: no crackles, no rales, no rhonchi and no wheezes Cardio Rate: regular rate Rhythm: regular rhythm Heart sounds: no murmurs and normal S1 and S2 GI Palpation (GI): Soft to palpation, nontender, no hepatomegaly and no splenomegaly Auscultation: normal bowel sounds Skin General skin exam: no rashes or lesions noted and dry skin Neuro General: oriented to person, oriented to place and oriented to time Cranial nerves: Yes Equal, round and reactive pupils present Speech: No Abnormal speech present Gait exam (Neuro): Normal gait present Motor exam (neuro): no tremor noted Extrem Right upper extremity: full ROM Left upper extremity: full ROM Right lower extremity: full ROM; no edema Left lower extremity: full ROM; no edema Psych Mental Status: mental status grossly normal Speech and movement: Normal speech and movement present Affect: normal affect Attitude: cooperative Thought process: Normal thought process present Coding Level of Care Code Est Pt Level 3 (60209) Diagnoses MARII (generalized anxiety disorder) F41.1 Assessment & Plan Assessment & Plan (1) MARII (generalized anxiety disorder): Code(s): F41.1 - Generalized anxiety disorder Category: Medical Plan: The patient received a new prescription for fluoxetine, 10 mg once daily, to avoid the side effects experienced with sertraline. Hydroxyzine will continue as needed to manage acute episodes of anxiety. Medications: New fluoxetine 10 mg PO DAILY 30 caps 1RF 30 days F41.1 - Generalized anxiety disorder Changed From ascorbate calcium (vitamin C) 500 mg PO DAILY To ascorbate calcium (vitamin C) 500 mg PO DAILY 90 tabs 1RF 90 days From cholecalciferol (vitamin D3) 25 mcg PO DAILY To cholecalciferol (vitamin D3) 25 mcg PO DAILY 90 caps 1RF 90 days Refilled amlodipine 5 mg PO DAILY 90 tabs 1RF I10 - Essential (primary) hypertension hydroxyzine HCl 25 mg PO BID PRN 14 tabs 1RF anxiety 7 days F41.0 - Panic disorder [episodic paroxysmal anxiety] Discontinued sertraline Discontinued Reason: Doctor's Order 25 mg PO DAILY 90 days 90 tabs 1RF F41.0 - Panic disorder [episodic paroxysmal anxiety], F41.1 - Generalized anxiety disorder
[2024-10-06 10:53] VITALS: BP 110/78; PULSE 89; TEMP 36.2; O2SAT 97; BMI 28.2
== END 2024-10-06 11:59 | disposition home or self-care (01) ==
LOC: HO.HMCH 10:45
PROVIDERS: PCP Physician Assistant; Visit Provider Physician Assistant
DX: F41.1 Generalized anxiety disorder (principal)

== ENCOUNTER 2024-10-20 10:05 | Outpatient (AMB) | payer OTHER, SELFPAY ==
--- NOTE | 2024-10-20 10:09 | MHC.OFFVIS ---
Vital Signs 10/20/24 10:18 Height 5 ft 4 in Weight 166 lb BMI 28.5 BP 148/72 H Blood Pressure Location Rt brachial Position Sitting Pulse 85 Intake Visit Reasons: post follicular cyst of the skin Intake Note: Patient here s/p WLE on anterior neck. Reports incision healing well. Patient c/o: crust and irritation along sutures. Excision: 10-06-2024 Financial Reserve Clerk Required: No Accompanied by: Self / Same As Patient Allergies sertraline Adverse Reaction (Intermediate, Verified 10/20/24 10:17) chest pain HPI HPI post follicular cyst of the skin: Details: She underwent excision of a cyst from the anterior neck under local anesthesia last 10/06/2024. She tolerated the procedure well and currently denies complaints. [facility] Medical History Epidermal cyst of neck Osteoarthritis of both knees Vitamin D deficiency Essential hypertension History of fracture of humerus History of fracture of wrist Post-menopausal Fracture, radius and ulna, proximal Conjunctivitis Surgical History History of open reduction and internal fixation (ORIF) procedure History of colonoscopy History of foot surgery H/O bilateral breast reduction surgery Family History Father Diabetes Mother Diabetes Hyperlipidemia Sister Gynecologic cancer Sister Breast cancer Son Multiple sclerosis Daughter Obesity Social History Household Members: None Housing: House Alcohol intake: never Patient Tobacco Use Status: Never used Tobacco e-Cigarette/Vaping Use: Never Used Second Hand Smoke Exposure: No service: No Current occupational status: disabled Sexual orientation: Straight/Heterosexual Gender identity: Female Cognitive needs: Yes (cane) Hearing needs: No Vision needs: Yes (glasses) Review of Systems Const Denies chills and Denies fever(s) Physical Exam Vital Signs: Last Vital Signs Pulse 85 10/20/24 10:18 BP 148/72 H 10/20/24 10:18 BMI result Body Mass Index 28.5 Const General: comfortable and no acute distress Neck Other: excision site is wellhealed, not infected, sutures intact Resp Effort & Inspection: normal respiratory effort Assessment & Plan Assessment & Plan (1) Epidermal cyst of neck: Code(s): L72.0 - Epidermal cyst Category: Medical Plan: S/P excision of cyst. The incision is wellhealed. I removed his sutures. The path report shows a ruptured epidermal cyst. She can otherwise follow up on a p.r.n. basis. Coding Level of Care Code Global (77405) Diagnoses Epidermal cyst of neck L72.0
[2024-10-20 10:18] VITALS: BP 148/72; PULSE 85; BMI 28.5
--- OUTSIDE RECORDS SUMMARY | 2024-10-20 10:26 | XMS_ITS | Clinical Summary ---
Author Organization [facility] Address [address] [place] [address] Care Team Providers Care Supplier Diversity Director Name Role Phone Fer Rai Primary Care [...] PM EDT Office Visit Orthopedic Surgery - [place] [address] [place] [address] [place] [phone] Godwin Marcano DPM Arthritis of left ankle (Primary Dx); Follow-up exam 07/28/2024 11:00 AM EST Consult Orthopedic Surgery - [address] [place] [phone] Donis White PA Arthritis of hand, right from Last 3 [...] 11:07 AM EST Arthritis of hand, right from Last 3 Months Results * XR Foot 3+ Views Left (08/25/2024 1:00 PM EDT) Anatomical Region Laterality Modality Lower Extremities, Foot [...] Final Result from Last 3 Months Insurance [facility] MEDICARE Member Subscriber Plan / Payer (Ef fective 2021-Present) Name:Sarah Starkey Relation to Subscriber:Self Name:Sarah Starkey Payer ID:[id number] Group ID:[id number] Type:Not on file Address: [facility] [address] [phone] Care Teams Supplier Diversity Director Relationship Specialty Start Date End Date Fer Rai PA PCP - General Physician Feed Research Technician 07/28/24
--- OUTSIDE RECORDS SUMMARY | 2024-10-20 10:26 | XMS_ITS | Data Portability ---
Author Organization [employer] [facility] [employer] Address [address] [place] [address] Care Team Providers Care Nursing Education Specialist Name Role Phone HIM CCA OTHER Assessment Encounter Date Assessment Date Assessment LastModified by Organization Details LastModified Time 06/06/2024 06/06/2024 I provided real -time medical direction via phone for this encounter, and was available for additional phone based assistance as needed. I have reviewed and agree with the Assessment and Plan as documented by the Utility Division Project Manager. We discussed the diagnostic uncertainty of home [...] to call 911- verbalized understanding of instruction [email or web address] Not available 06/06/2024 14:05:47 Plan of Treatment Reminders Order Date Submit Date Provider Last Modified By Organization Details Last Modified Time Details Appointments None recorded. Lab None recorded. Referral None recorded. Procedures None recorded. Surgeries None recorded. Imaging None recorded. Medication Orders prednisone 20 mg tablet 2024 025 [email or web address] 0 [facility] #[id number], [address] [place], [place], [id number], 14:03:32 hydroxyzine HCl 25 mg tablet 2024 025 [facility] #[id number], [address] [place], [place], [id number], 14:03:39 prednisone 20 mg tablet 2024 025 [facility] #[id number], [address] [place], [place], [id number], 14:03:39 hydrocortis one 1 % topical cream 2024 025 [facility] #[id number], [address] [place], [place], [id number], 14:03:42 Patient TargetsNo targets recorded. Patient InstructionsNo [...] Address Organization Details Last Updated DateTime 5 34345.8 g 14 /min 162.56 cm 98.1 [degF] [...] SNOMED-CT Code Diagnosis ICD10 Code Diagnosis Note [id number] Tanya Buck MD [facility] - [facility] [address] [place] [phone] 06/06/2024 12:58:35 06/07/2024 10:24:19 Pruritic rash 84327501 L28.2 Advised unsure of etiology as the [...] Pino Member ID Guarantor Name 06/06/2024 1 [facility] - DOS ON OR AFTER 2022 - DUAL ELIGIBLE - RETIREMENT OPTIONS AND ONE CARE (MEDICARE REPLACEMENT/ADV ANTAGE - HMO) Sarah Starkey [id number] Sarah Starkey Notes Date Note Type Note [...] via name and . Referral taken via per diem interpreter. Per patient she has a 2 [...] ..................... ..................... ..................... ..................... ..................... ..................... ............... Utility Division Project Manager Note From Thanh Rosario: This 68-year-old female [...] ..................... ..................... ..................... ..................... ..................... ..................... ............... [facility] [place]: Tanya Buck ..................... ..................... ..................... ..................... ..................... ..................... ............... Disposition: Fulfilled Tanya Buck MD [address] [facility],[address], [place], [address], [employer] 06/06/2024 23:02:39 OBGyn Episode No OBEpisode recorded.
== END 2024-10-20 10:34 | disposition home or self-care (01) ==
LOC: HO.HGS 10:05
PROVIDERS: PCP Physician Assistant; Visit Provider Surgery
DX: L72.0 Epidermal cyst (principal)
CPT/HCPCS: 99024

== ENCOUNTER → 2024-10-20 10:05 | Outpatient (BNVA) | payer OTHER, SELFPAY | PROVIDERS: PCP Physician Assistant; Visit Provider Surgery | DX: Z48.817 Encounter for surgical aftercare following surgery on the skin and subcutaneous tissue (principal); Z87.2 Personal history of diseases of the skin and subcutaneous tissue | CPT/HCPCS: 99212 ==